=== PATIENT | male | born 1955 | race Caucasian/White ===

== ENCOUNTER 2021-04-24 14:04 | Emergency (ER) | payer BC, SELFPAY ==
--- NOTE | ~2021-04-24 | XR_ITS ---
EXAMINATION: XR CHEST CLINICAL INFORMATION: Shortness of breath COMPARISON: None TECHNIQUE: Frontal view of the chest was obtained. FINDINGS: The cardiac and mediastinal contours are normal. The lungs are clear. There is no pleural effusion or pneumothorax. There are degenerative changes of the spine. XR/XR chest 1V IMPRESSION: No evidence for acute disease in the chest.
[2021-04-24 14:19] VITALS: BP 206/96; BP 220/100; PULSE 70; PULSE 76; RESP 16; TEMP 36.6; O2SAT 97; O2SAT 98; BMI 30.5
[2021-04-24 14:21] LABS: Glucose, Whole Blood 346 mg/dL (60-115)
--- NOTE | 2021-04-24 14:27 | ECG_ITS ---
Test Reason : NAUSEA Blood Pressure : / mmHG Vent. Rate : 067 BPM Atrial Rate : 067 BPM P-R Int : 194 ms QRS Dur : 084 ms QT Int : 414 ms P-R-T Axes : 062 026 037 degrees QTc Int : 437 ms Sinus rhythm with marked sinus arrhythmia Septal infarct , age undetermined Abnormal ECG When compared with ECG of 14-FEB-2013 16:31, No significant change was found Referred By: Kulwinder Lewis Electronically Signed By:STEFFI WEISS
--- NOTE | 2021-04-24 14:29 | ED_ITS ---
HPI - General Adult General Chief complaint: Nausea/Vomiting/Diarrhea Stated complaint: N&V SINCE THIS AM,HIGH BP 200/112 PER EMS Time Seen by Provider: 04/24/21 14:21 Source: patient History of Present Illness HPI narrative: Patient with 2 days worth of nausea, chills, cough, sputum. Feeling generally unwell and very fatigued and weak. No chest pain. No history of similar issues. He had the [employer] COVID vaccine in August of 2020. Nonsmoker No history of asthma or COPD. He has a history of insulin-dependent diabetes times more than 20 years. He states he does not typically have hypertension. His last blood pressure 2 weeks ago at his PCP office he thinks was 123/70. Related Data Previous Rx's Medication Instructions Recorded ondansetron HCl 4 mg tablet 4 mg PO Q6H PRN #10 tab 04/24/21 (Zofran) Allergies Allergy/AdvReac Type Severity Reaction Status Date / Time liraglutide [From VICTOZA] Allergy Unknown UNKNOWN Unverified 01/20/20 17:02 Review of Systems Constitutional: Constitutional: Reports anorexia, Reports chills and Reports fever(s) ENT: Comments: sore throat Cardiovascular: Comments: No chest pain Respiratory: Comments: Cough sputum and dyspnea Gastrointestinal: Comments: Nausea and vomiting without abdominal pain. Denies diarrhea. Normal bowel movement today Integumentary/Breasts: Comments: No rash Endocrine: Comments: States blood sugars have been ?all over the place? FOR[facility]LY [facility], [facility] Past Medical History Medical History (Updated 04/24/21 @ 17:48 by Kulwinder Lewis MD) Gastroparesis Insulin dependent type 1 diabetes mellitus Social History Social History Alcohol intake: never Patient Tobacco Use Status: Never used Tobacco Use of substances other than those prescribed or required for medical reasons: No Advance Directives: No Advance Directives Information Provided: No Physical Exam Vital Signs: Vital Signs: Last Vital Signs Temp 98.0 F 04/24/21 18:42 Pulse 107 H 04/24/21 18:42 Resp 17 04/24/21 18:42 BP 196/177 H 04/24/21 18:42 Pulse Ox 98 04/24/21 18:42 BMI result Body Mass Index 30.5 Const: Other: Awake and alert. Appears uncomfortable. Holding an emesis bag HENMT: Other: Throat with mild erythema without exudate and no swelling Resp: Other: Diminished without wheezes rales rhonchi Cardio: Other: Regular rate and rhythm without murmurs rubs or gallops GI: Other: Soft nontender nondistended. Normal bowel sounds Skin: Other: Warm pink and dry without rash Neuro: Other: Nonfocal Extrem: Other: No calf tenderness Course Course Course Narrative: Nausea vomiting Gastroenteritis COVID-19 infection Influenza Dehydration URI Hyperglycemia Diabetic ketoacidosis IV fluids IV insulin 5:46 p.m.. Lab work shows overall normal values. A stone is negative. Blood sugars in the 300s. Patient is feeling much better and tolerating p.o. liquids. His blood sugar was still significant elevated however, so we will give a little more fluid and IV insulin. Assuming his blood glucose level decreases, he will be safe for discharge home 6:46 p.m.. Repeat blood sugars 298. Stable for discharge home Medical Decision Making Lab Data Result diagrams: 04/24/21 16:11 04/24/21 16:11 Labs: Lab Results 04/24/21 04/24/21 04/24/21 Range/Units 14:18 15:20 16:11 WBC 13.7 H (4.8-10.8) X10*3/uL RBC 6.06 H (4.60-5.80) X10*6/uL Hgb 17.6 (14.0-18.0) g/dl Hct 51.9 (42.0-52.0) % MCV 85.6 (80.0-98.0) fL MCH 29.0 (27.0-33.0) pg MCHC 33.9 (31.0-36.0) g/dl RDW 12.9 (11.0-16.0) % Plt Count 218 (160-400) X10*3/uL MPV 9.7 (9.4-12.4) fL Immature Gran % (Auto) 0.4 (0.0-0.4) % Neut % (Auto) 90.7 H (45-73) % Lymph % (Auto) 5.4 L (20-40) % [place] % (Auto) 3.1 (2-11) % Eos % (Auto) 0.1 (0-4) % Baso % (Auto) 0.3 (0-2) % Lymph # (Auto) 0.7 L (1.2-4.9) X10*3/uL [place] # (Auto) 0.4 (0.1-1.2) X10*3/uL Eos # (Auto) 0.0 (0.0-0.4) X10*3/uL Baso # (Auto) 0.0 (0.0-0.2) X10*3/uL Abs Immat Gran (auto) 0.05 H (0.00-0.03) X10*3/uL Absolute Neuts (auto) 12.5 H (2.0-8.3) x10*3/uL Absolute Nucleated RBC 0.000 (0.0-0.012) X10*3/uL Nucleated RBC % (auto) 0.0 (0.0-0.2) /100WBC Smear Tech's Comments VERIFIED D-Dimer High Sensitivty NG/ML Sodium (135-145) mmol/L Potassium (3.3-5.1) mmol/L Chloride (96-108) mmol/L Carbon Dioxide (22-29) mmol/L Anion Gap (12-20) BUN (9-16) mg/dL Creatinine (0.5-1.4) mg/dL Estim Creat Clear Calc Estimated GFR POC Glucose 346 H (60-115) mg/dL Random Glucose (60-115) mg/dL Lactic Acid (0.5-2.0) mmol/L Calcium (8.4-10.2) mg/dL Total Bilirubin (0.0-1.0) mg/dL AST (5-37) U/L ALT (0-40) U/L Alkaline Phosphatase (39-117) U/L Troponin I High Sens (<3.5-35.0) ng/L B-Natriuretic Peptide (<100) pg/mL Total Protein (6.5-8.0) g/dL Albumin (3.5-5.0) g/dL Lipase (8-78) U/L Acetone, Qual (Negative) Influenza Type A (PCR) NEGATIVE (Negative) Influenza Type B (PCR) NEGATIVE (Negative) RSV RNA Qual (PCR) NEGATIVE (Negative) SARS-CoV-2 RNA (RT-PCR) NEGATIVE (Negative) 12/21/21 12/21/21 12/21/21 Range/Units 16:11 16:11 16:11 WBC (4.8-10.8) X10*3/uL RBC (4.60-5.80) X10*6/uL Hgb (14.0-18.0) g/dl Hct (42.0-52.0) % MCV (80.0-98.0) fL MCH (27.0-33.0) pg MCHC (31.0-36.0) g/dl RDW (11.0-16.0) % Plt Count (160-400) X10*3/uL MPV (9.4-12.4) fL Immature Gran % (Auto) (0.0-0.4) % Neut % (Auto) (45-73) % Lymph % (Auto) (20-40) % [place] % (Auto) (2-11) % Eos % (Auto) (0-4) % Baso % (Auto) (0-2) % Lymph # (Auto) (1.2-4.9) X10*3/uL [place] # (Auto) (0.1-1.2) X10*3/uL Eos # (Auto) (0.0-0.4) X10*3/uL Baso # (Auto) (0.0-0.2) X10*3/uL Abs Immat Gran (auto) (0.00-0.03) X10*3/uL Absolute Neuts (auto) (2.0-8.3) x10*3/uL Absolute Nucleated RBC (0.0-0.012) X10*3/uL Nucleated RBC % (auto) (0.0-0.2) /100WBC Smear Tech's Comments D-Dimer High Sensitivty 174 NG/ML Sodium 142 (135-145) mmol/L Potassium 4.3 (3.3-5.1) mmol/L Chloride 105 (96-108) mmol/L Carbon Dioxide 19 L (22-29) mmol/L Anion Gap 22 H (12-20) BUN 17 H (9-16) mg/dL Creatinine 0.94 (0.5-1.4) mg/dL Estim Creat Clear Calc 83.1 Estimated GFR > 60 POC Glucose (60-115) mg/dL Random Glucose 357 H* (60-115) mg/dL Lactic Acid 2.4 H* (0.5-2.0) mmol/L Calcium 10.0 (8.4-10.2) mg/dL Total Bilirubin 1.2 H (0.0-1.0) mg/dL AST 22 (5-37) U/L ALT 41 H (0-40) U/L Alkaline Phosphatase 109 (39-117) U/L Troponin I High Sens (<3.5-35.0) ng/L B-Natriuretic Peptide (<100) pg/mL Total Protein 8.5 H (6.5-8.0) g/dL Albumin 4.9 (3.5-5.0) g/dL Lipase 45 (8-78) U/L Acetone, Qual (Negative) Influenza Type A (PCR) (Negative) Influenza Type B (PCR) (Negative) RSV RNA Qual (PCR) (Negative) SARS-CoV-2 RNA (RT-PCR) (Negative) 04/24/21 04/24/21 Range/Units 16:11 16:11 WBC (4.8-10.8) X10*3/uL RBC (4.60-5.80) X10*6/uL Hgb (14.0-18.0) g/dl Hct (42.0-52.0) % MCV (80.0-98.0) fL MCH (27.0-33.0) pg MCHC (31.0-36.0) g/dl RDW (11.0-16.0) % Plt Count (160-400) X10*3/uL MPV (9.4-12.4) fL Immature Gran % (Auto) (0.0-0.4) % Neut % (Auto) (45-73) % Lymph % (Auto) (20-40) % [place] % (Auto) (2-11) % Eos % (Auto) (0-4) % Baso % (Auto) (0-2) % Lymph # (Auto) (1.2-4.9) X10*3/uL [place] # (Auto) (0.1-1.2) X10*3/uL Eos # (Auto) (0.0-0.4) X10*3/uL Baso # (Auto) (0.0-0.2) X10*3/uL Abs Immat Gran (auto) (0.00-0.03) X10*3/uL Absolute Neuts (auto) (2.0-8.3) x10*3/uL Absolute Nucleated RBC (0.0-0.012) X10*3/uL Nucleated RBC % (auto) (0.0-0.2) /100WBC Smear Tech's Comments D-Dimer High Sensitivty NG/ML Sodium (135-145) mmol/L Potassium (3.3-5.1) mmol/L Chloride (96-108) mmol/L Carbon Dioxide (22-29) mmol/L Anion Gap (12-20) BUN (9-16) mg/dL Creatinine (0.5-1.4) mg/dL Estim Creat Clear Calc Estimated GFR POC Glucose (60-115) mg/dL Random Glucose (60-115) mg/dL Lactic Acid (0.5-2.0) mmol/L Calcium (8.4-10.2) mg/dL Total Bilirubin (0.0-1.0) mg/dL AST (5-37) U/L ALT (0-40) U/L Alkaline Phosphatase (39-117) U/L Troponin I High Sens 4.5 (<3.5-35.0) ng/L B-Natriuretic Peptide 14 (<100) pg/mL Total Protein (6.5-8.0) g/dL Albumin (3.5-5.0) g/dL Lipase (8-78) U/L Acetone, Qual Negative (Negative) Influenza Type A (PCR) (Negative) Influenza Type B (PCR) (Negative) RSV RNA Qual (PCR) (Negative) SARS-CoV-2 RNA (RT-PCR) (Negative) Discharge Plan Discharge Clinical Impression: Gastroenteritis, Dehydration, Acute hyperglycemia Patient Disposition: Home, Self-Care Instructions: Dehydration (ED), Gastroenteritis (ED), Diabetic Hyperglycemia (ED) Prescriptions: New ondansetron HCl [Zofran] 4 mg tablet 4 mg PO Q6H PRN (Reason: nausea and vomiting) Qty: 10 RF: 0
[2021-04-24] MEDS: ondansetron HCL 4 MG/2 ML VIAL IVPUSH (14:48)
[2021-04-24] MEDS: 0.9 % Sodium Chloride 1,000 ML 999 ML IV ×2 (14:48→17:20)
[2021-04-24 16:12] LABS: Influenza A PCR NEGATIVE (Negative); Influenza B PCR NEGATIVE (Negative); Resp Syncy Virus RNA Qual PCR NEGATIVE (Negative); SARS COV2 PCR INHOUSE NEGATIVE (Negative)
[2021-04-24 16:19] LABS: Basophils Percent Auto 0.3 % (0-2); Eosinophils Percent Auto 0.1 % (0-4); Hematocrit 51.9 % (42.0-52.0); Hemoglobin 17.6 g/dl (14.0-18.0); Imm Gran Abs Auto 0.05 X10*3/uL (0.00-0.03); Imm Gran Pct Auto 0.4 % (0.0-0.4); Lymphocytes Absolute Auto 0.7 X10*3/uL (1.2-4.9); Lymphocytes Percent Auto 5.4 % (20-40); MANUAL DIFF FLAG SCAN; Mean Corpuscular HGB Conc 33.9 g/dl (31.0-36.0); Mean Corpuscular Volume 85.6 fL (80.0-98.0); Mean Platelet Volume 9.7 fL (9.4-12.4); Monocytes Absolute Auto 0.4 X10*3/uL (0.1-1.2); Monocytes Percent Auto 3.1 % (2-11); Neutrophils Absolute Auto 12.5 x10*3/uL (2.0-8.3); Neutrophils Percent Auto 90.7 % (45-73); Platelet Count 218 X10*3/uL (160-400); Red Blood Count 6.06 X10*6/uL (4.60-5.80); Red Cell Distribution Width 12.9 % (11.0-16.0); SCAN SMEAR FLAG 1; White Blood Count 13.7 X10*3/uL (4.8-10.8)
[2021-04-24 16:27] LABS: D Dimer High Sensitivity 174 NG/ML
[2021-04-24 16:28] LABS: Acetone, serum QL Negative (Negative)
[2021-04-24 16:35] LABS: Lactic Acid 2.4 mmol/L (0.5-2.0)
[2021-04-24 16:39] LABS: B Type Natriuretic Peptide 14 pg/mL (<100); SLIDE REVIEW VERIFIED; Troponin-I High Sensitivity 4.5 ng/L (<3.5-35.0)
[2021-04-24 16:40] LABS: Alanine Aminotransferase 41 U/L (0-40); Albumin Level 4.9 g/dL (3.5-5.0); Alkaline Phosphatase 109 U/L (39-117); Anion Gap 22 (12-20); Aspartate Amino Transferase 22 U/L (5-37); Bilirubin Total 1.2 mg/dL (0.0-1.0); Blood Urea Nitrogen 17 mg/dL (9-16); Carbon Dioxide 19 mmol/L (22-29); Chloride 105 mmol/L (96-108); Creatinine Clr Calc Pharmacy 83.1; Estimated Glomerular Filt Rate > 60; Glucose Random 357 mg/dL (60-115); Lipase 45 U/L (8-78); Potassium 4.3 mmol/L (3.3-5.1); Sodium 142 mmol/L (135-145); Total Protein 8.5 g/dL (6.5-8.0)
[2021-04-24 16:53] VITALS: BP 212/96; PULSE 96; RESP 18; TEMP 36.5; O2SAT 96
[2021-04-24] MEDS: Insulin Regular, Human 100 UNIT/ML 3 ML VIAL IVPUSH (17:18)
[2021-04-24 18:16] LABS: Reflex Lactate? Lactic Acid Added
[2021-04-24 18:42] VITALS: BP 196/177; PULSE 107; RESP 17; TEMP 36.7; O2SAT 98
[2021-04-24 18:49] LABS: Glucose, Whole Blood 298 mg/dL (60-115)
[2021-04-24 19:20] LABS: Glucose, Whole Blood 329 mg/dL (60-115)
== END 2021-04-24 18:58 | disposition home or self-care (01) ==
PROVIDERS: Emergency Provider Emergency Medicine; PCP Family Medicine
DX: K52.9 Noninfective gastroenteritis and colitis, unspecified (principal); E86.0 Dehydration; E10.65 Type 1 diabetes mellitus with hyperglycemia; Z20.822 Contact with and (suspected) exposure to COVID-19
CPT/HCPCS: 0241U; 36415; 71045; 80053; 82009; 82947; 83605; 83690; 83880; 84484; 85025; 85379; 87040; 93005; 96361; 96374; 96375; 99284; J2405

== ENCOUNTER 2021-07-04 18:40 | Emergency (ER) | payer MEDICARE, BC, SELFPAY ==
--- NOTE | ~2021-07-04 | CT_ITS ---
EXAMINATION: CT ABDOMEN AND PELVIS WITH CONTRAST CLINICAL INFORMATION: Lower abdominal pain, question etiology COMPARISON: 04/04/2009 TECHNIQUE: Multidetector volumetric images were obtained from the superior aspect of the liver through the pubic symphysis following administration 85 mL of Omnipaque 350 intravenous contrast. Sagittal and coronal reformatted images were obtained on the technologist's workstation. Oral contrast: No This CT examination was performed using dose optimization techniques as appropriate, variously including the following: *Automated exposure control *Adjustment of mA and/or kV according to patient size (this includes techniques or standardized protocols for targeted exams where dose is matched to indication/reason for exam; i.e. extremities or head) *Use of iterative reconstruction technique DLP: 634 mGy-cm FINDINGS: LUNG BASES: The visualized lung bases are unremarkable. LIVER, GALLBLADDER, AND BILIARY TREE: There is hypoattenuation of the liver suggesting steatosis. No intrahepatic biliary ductal dilatation. Cholelithiasis is noted, without appreciable gallbladder wall thickening or pericholecystic inflammation. PANCREAS: Unremarkable. SPLEEN: Unremarkable. ADRENAL GLANDS: Unremarkable. KIDNEYS AND URETERS: Bilateral nephrograms are symmetric. No hydronephrosis or obstructing calculus identified. An approximately 2.2 cm cyst is noted off the anterior right kidney; no follow-up recommended. BLADDER: Unremarkable. GASTROINTESTINAL TRACT: No evidence of bowel obstruction or significant wall thickening. The appendix is unremarkable. No free fluid or free air is seen. ABDOMINAL WALL: No significant hernia is appreciated. LYMPH NODES: Normal. VASCULAR: There is atherosclerotic calcification along the aorta. PELVIC VISCERA: Unremarkable. OSSEOUS STRUCTURES: Degenerative changes are noted in the spine. CT/CT abdomen pelvis w con IMPRESSION: No acute findings identified in the abdomen/pelvis. Cholelithiasis. Fleischner guidelines were followed.
--- NOTE | ~2021-07-04 | XR_ITS ---
EXAMINATION: XR CHEST CLINICAL INFORMATION: Shortness of breath COMPARISON: 04/24/2021 TECHNIQUE: Frontal view of the chest was obtained. FINDINGS: Lung volumes are symmetric. No focal consolidation is seen. No evidence of pneumothorax, pleural effusion, or pulmonary edema. The cardiomediastinal contour is unremarkable. No acute osseous findings are seen. XR/XR chest 1V IMPRESSION: No acute cardiopulmonary findings.
[2021-07-04 18:47] VITALS: BP 184/105; PULSE 115; RESP 18; TEMP 36.4; O2SAT 99; BMI 30.7
--- NOTE | 2021-07-04 19:09 | PC.NURSE ---
unable to get patient labs as patient a difficult stick ,denny doan is aware .
[2021-07-04 19:31] LABS: COVID-19 Test Negative (Negative)
[2021-07-04 21:25] VITALS: BP 189/101; PULSE 112; RESP 20; O2SAT 97
[2021-07-04 21:29] LABS: Glucose, Whole Blood 298 mg/dL (60-115)
[2021-07-04 21:30] LABS: Basophils Percent Auto 0.1 % (0-2); Hematocrit 52.7 % (42.0-52.0); Hemoglobin 18.1 g/dl (14.0-18.0); Imm Gran Abs Auto 0.05 X10*3/uL (0.00-0.03); Imm Gran Pct Auto 0.4 % (0.0-0.4); Lymphocytes Absolute Auto 0.8 X10*3/uL (1.2-4.9); Lymphocytes Percent Auto 6.1 % (20-40); MANUAL DIFF FLAG SCAN; Mean Corpuscular HGB Conc 34.3 g/dl (31.0-36.0); Mean Corpuscular Hemoglobin 28.6 pg (27.0-33.0); Mean Corpuscular Volume 83.3 fL (80.0-98.0); Mean Platelet Volume 9.3 fL (9.4-12.4); Monocytes Absolute Auto 0.5 X10*3/uL (0.1-1.2); Monocytes Percent Auto 3.3 % (2-11); Neutrophils Absolute Auto 12.4 x10*3/uL (2.0-8.3); Neutrophils Percent Auto 90.1 % (45-73); Platelet Count 272 X10*3/uL (160-400); Red Blood Count 6.33 X10*6/uL (4.60-5.80); Red Cell Distribution Width 12.8 % (11.0-16.0); SCAN SMEAR FLAG 1; White Blood Count 13.8 X10*3/uL (4.8-10.8)
[2021-07-04 21:51] LABS: SLIDE REVIEW VERIFIED
[2021-07-04 21:58] LABS: Alanine Aminotransferase 25 U/L (0-40); Alkaline Phosphatase 123 U/L (39-117); Anion Gap 23 (12-20); Aspartate Amino Transferase 24 U/L (5-37); Bilirubin Direct 0.3 mg/dL (0.0-0.5); Bilirubin Total 1.1 mg/dL (0.0-1.0); Blood Urea Nitrogen 15 mg/dL (9-16); Calcium 10.4 mg/dL (8.4-10.2); Carbon Dioxide 23 mmol/L (22-29); Chloride 98 mmol/L (96-108); Creatinine Clr Calc Pharmacy 70.8; Estimated Glomerular Filt Rate > 60; Glucose Random 401 mg/dL (60-115); Lipase 12 U/L (8-78); Potassium 5.4 mmol/L (3.3-5.1); Sodium 139 mmol/L (135-145); Total Protein 8.6 g/dL (6.5-8.0)
--- NOTE | 2021-07-04 22:15 | ED.GENADULT ---
HPI - General Adult General Chief complaint: General Medical Stated complaint: wheezing, 96.4 temp, diabetic Time Seen by Provider: 07/04/21 22:15 Source: patient and family Mode of arrival: ambulatory Limitations: no limitations History of Present Illness HPI narrative: Patient diabetic with history of gastroparesis been having cold symptoms for last 2-3 days was okay in the morning today went to work noticed diffuse abdominal pain with nausea vomited 1 time profusely sweating, poor oral intake all day with weakness and lethargy with confusion, patient was during eating every 15-20 minute blood sugar was elevated to 400 range POC was 298 on arrival no fever no chills no cough Related Data Home Medications Medication Instructions Recorded Confirmed buspirone 5 mg tablet 7.5 mg PO BID 07/04/21 07/04/21 clonazepam 0.5 mg tablet 0.5 mg PO BID PRN 07/04/21 07/04/21 dextroamphetamine-amphetamine ER 40 mg PO DAILY 07/04/21 07/04/21 20 mg 24hr capsule,extend release dulaglutide 1.5 mg/0.5 mL 0.5 ml SUBCUT QWEEK 07/04/21 07/04/21 subcutaneous pen injector (Trulicity) gabapentin 300 mg capsule 900 mg PO BID 07/04/21 insulin lispro 100 unit/mL SUBCUT 07/04/21 subcutaneous solution (Humalog U-100 Insulin) metformin 500 mg tablet 2,000 mg PO BID 07/04/21 07/04/21 metoclopramide HCl 10 mg tablet 10 mg PO BID 07/04/21 07/04/21 ondansetron HCl 4 mg tablet 4 mg PO DIRECTED PRN 07/04/21 07/04/21 Allergies Allergy/AdvReac Type Severity Reaction Status Date / Time liraglutide [From VICTOZA] Allergy Unknown UNKNOWN Verified 07/04/21 18:47 Review of Systems Review of Systems: Yes all other systems are reviewed and are negative PMFSH Past Medical History Medical History Gastroparesis Insulin dependent type 1 diabetes mellitus Social History Social History Alcohol intake: never Patient Tobacco Use Status: Never used Tobacco Advance Directives: No Advance Directives Information Provided: Yes Physical Exam ED Vital Signs: Vital Signs - 24 hr 07/04/21 18:47 07/04/21 21:25 07/04/21 23:44 Temperature 97.5 F Pulse Rate 115 H 112 H 104 H Respiratory Rate 18 20 16 Blood Pressure 184/105 H 189/101 H 122/66 Pulse Oximetry 99 97 97 07/05/21 01:07 07/05/21 01:18 07/05/21 03:12 Temperature 97.7 F Pulse Rate 98 90 93 Respiratory Rate 18 16 16 Blood Pressure 121/65 131/61 156/70 H Pulse Oximetry 98 BMI result Body Mass Index 30.7 Appearance: Alert. Oriented X3. No acute distress. Eyes: No pallor or icterus ENT: Pharynx normal. Oral Mucosa dry Neck: Normal inspection. Neck supple. CVS: Normal heart rate and rhythm. Pulses normal. Respiratory: No respiratory distress. Equal air entry bilateral, no wheezing/rales/rhonchi Abdomen: Soft , diffuse tenderness no rebound tenderness or guarding Bowel sounds are present, no mass palpable, no CVA tenderness Skin: Skin warm and dry. Normal skin color. Normal skin turgor. Extremities: No lower extremity edema. No calf tenderness Neuro: Oriented X 3. No motor deficit. No sensory deficit. Medical Decision Making MDM Narrative Medical decision making narrative: Patient diabetic gastroparesis came with acute episode of gastroparesis as in the past workup showed lactic acidosis with normal procalcitonin lactic acidosis is type B as patient is on metformin no signs of infection patient symptoms improved after IV hydration able to take p.o. fluids feeling much better now will discharge patient home Lab Data Lab results reviewed: Yes I reviewed the patient's lab results. Result diagrams: 07/04/21 21:24 07/04/21 21:24 Labs: Lab Results 07/04/21 07/04/21 07/04/21 Range/Units 18:55 19:06 21:24 WBC 13.8 H (4.8-10.8) X10*3/uL RBC 6.33 H (4.60-5.80) X10*6/uL Hgb 18.1 H (14.0-18.0) g/dl Hct 52.7 H (42.0-52.0) % MCV 83.3 (80.0-98.0) fL MCH 28.6 (27.0-33.0) pg MCHC 34.3 (31.0-36.0) g/dl RDW 12.8 (11.0-16.0) % Plt Count 272 (160-400) X10*3/uL MPV 9.3 L (9.4-12.4) fL Immature Gran % (Auto) 0.4 (0.0-0.4) % Neut % (Auto) 90.1 H (45-73) % Lymph % (Auto) 6.1 L (20-40) % [place] % (Auto) 3.3 (2-11) % Eos % (Auto) 0.0 (0-4) % Baso % (Auto) 0.1 (0-2) % Lymph # (Auto) 0.8 L (1.2-4.9) X10*3/uL [place] # (Auto) 0.5 (0.1-1.2) X10*3/uL Eos # (Auto) 0.0 (0.0-0.4) X10*3/uL Baso # (Auto) 0.0 (0.0-0.2) X10*3/uL Abs Immat Gran (auto) 0.05 H (0.00-0.03) X10*3/uL Absolute Neuts (auto) 12.4 H (2.0-8.3) x10*3/uL Absolute Nucleated RBC 0.000 (0.0-0.012) X10*3/uL Nucleated RBC % (auto) 0.0 (0.0-0.2) /100WBC Smear Tech's Comments VERIFIED Sodium (135-145) mmol/L Potassium (3.3-5.1) mmol/L Chloride (96-108) mmol/L Carbon Dioxide (22-29) mmol/L Anion Gap (12-20) BUN (9-16) mg/dL Creatinine (0.5-1.4) mg/dL Estim Creat Clear Calc Estimated GFR POC Glucose 298 H (60-115) mg/dL Random Glucose (60-115) mg/dL Lactic Acid (0.5-2.0) mmol/L Lactic Acid F/U @ 2Hr (0.5-2.0) mmol/L Calcium (8.4-10.2) mg/dL Total Bilirubin (0.0-1.0) mg/dL Direct Bilirubin (0.0-0.5) mg/dL AST (5-37) U/L ALT (0-40) U/L Alkaline Phosphatase (39-117) U/L C-Reactive Protein (< or = 0.50) mg/dL Total Protein (6.5-8.0) g/dL Albumin (3.5-5.0) g/dL Lipase (8-78) U/L Procalcitonin ng/mL TSH (0.32-4.0) uIU/mL Urine Color Urine Appearance Urine pH (5.0-8.0) Ur Specific [place] (1.005-1.025) Urine Protein (NEG-TRACE) MG/DL Urine Glucose (UA) (NEG) MG/DL Urine Ketones (NEG) MG/DL Urine Blood (NEG) Urine Nitrite (NEG) Ur Leukocyte Esterase (NEG) Urine RBC (0) /HPF Urine WBC (0-4) /HPF Ur Squamous Epith Cells /LPF Urine Bacteria /LPF Acetone, Qual (Negative) COVID-19 (MARQUISE) Negative (Negative) COVID-19 Clin Com See Note 07/04/21 07/04/21 07/04/21 Range/Units 21:24 21:28 22:42 WBC (4.8-10.8) X10*3/uL RBC (4.60-5.80) X10*6/uL Hgb (14.0-18.0) g/dl Hct (42.0-52.0) % MCV (80.0-98.0) fL MCH (27.0-33.0) pg MCHC (31.0-36.0) g/dl RDW (11.0-16.0) % Plt Count (160-400) X10*3/uL MPV (9.4-12.4) fL Immature Gran % (Auto) (0.0-0.4) % Neut % (Auto) (45-73) % Lymph % (Auto) (20-40) % [place] % (Auto) (2-11) % Eos % (Auto) (0-4) % Baso % (Auto) (0-2) % Lymph # (Auto) (1.2-4.9) X10*3/uL [place] # (Auto) (0.1-1.2) X10*3/uL Eos # (Auto) (0.0-0.4) X10*3/uL Baso # (Auto) (0.0-0.2) X10*3/uL Abs Immat Gran (auto) (0.00-0.03) X10*3/uL Absolute Neuts (auto) (2.0-8.3) x10*3/uL Absolute Nucleated RBC (0.0-0.012) X10*3/uL Nucleated RBC % (auto) (0.0-0.2) /100WBC Smear Tech's Comments Sodium 139 (135-145) mmol/L Potassium 5.4 H D (3.3-5.1) mmol/L Chloride 98 (96-108) mmol/L Carbon Dioxide 23 (22-29) mmol/L Anion Gap 23 H (12-20) BUN 15 (9-16) mg/dL Creatinine 1.07 (0.5-1.4) mg/dL Estim Creat Clear Calc 70.8 Estimated GFR > 60 POC Glucose (60-115) mg/dL Random Glucose 401 H* (60-115) mg/dL Lactic Acid 3.4 H* (0.5-2.0) mmol/L Lactic Acid F/U @ 2Hr (0.5-2.0) mmol/L Calcium 10.4 H (8.4-10.2) mg/dL Total Bilirubin 1.1 H (0.0-1.0) mg/dL Direct Bilirubin 0.3 (0.0-0.5) mg/dL AST 24 (5-37) U/L ALT 25 (0-40) U/L Alkaline Phosphatase 123 H (39-117) U/L C-Reactive Protein 1.49 H (< or = 0.50) mg/dL Total Protein 8.6 H (6.5-8.0) g/dL Albumin 5.0 (3.5-5.0) g/dL Lipase 12 (8-78) U/L Procalcitonin 0.03 ng/mL TSH 0.73 (0.32-4.0) uIU/mL Urine Color Urine Appearance Urine pH (5.0-8.0) Ur Specific [place] (1.005-1.025) Urine Protein (NEG-TRACE) MG/DL Urine Glucose (UA) (NEG) MG/DL Urine Ketones (NEG) MG/DL Urine Blood (NEG) Urine Nitrite (NEG) Ur Leukocyte Esterase (NEG) Urine RBC (0) /HPF Urine WBC (0-4) /HPF Ur Squamous Epith Cells /LPF Urine Bacteria /LPF Acetone, Qual Negative (Negative) COVID-19 (MARQUISE) (Negative) COVID-19 Clin Com 07/04/21 07/05/21 07/05/21 Range/Units 22:50 00:02 01:12 WBC (4.8-10.8) X10*3/uL RBC (4.60-5.80) X10*6/uL Hgb (14.0-18.0) g/dl Hct (42.0-52.0) % MCV (80.0-98.0) fL MCH (27.0-33.0) pg MCHC (31.0-36.0) g/dl RDW (11.0-16.0) % Plt Count (160-400) X10*3/uL MPV (9.4-12.4) fL Immature Gran % (Auto) (0.0-0.4) % Neut % (Auto) (45-73) % Lymph % (Auto) (20-40) % [place] % (Auto) (2-11) % Eos % (Auto) (0-4) % Baso % (Auto) (0-2) % Lymph # (Auto) (1.2-4.9) X10*3/uL [place] # (Auto) (0.1-1.2) X10*3/uL Eos # (Auto) (0.0-0.4) X10*3/uL Baso # (Auto) (0.0-0.2) X10*3/uL Abs Immat Gran (auto) (0.00-0.03) X10*3/uL Absolute Neuts (auto) (2.0-8.3) x10*3/uL Absolute Nucleated RBC (0.0-0.012) X10*3/uL Nucleated RBC % (auto) (0.0-0.2) /100WBC Smear Tech's Comments Sodium (135-145) mmol/L Potassium (3.3-5.1) mmol/L Chloride (96-108) mmol/L Carbon Dioxide (22-29) mmol/L Anion Gap (12-20) BUN (9-16) mg/dL Creatinine (0.5-1.4) mg/dL Estim Creat Clear Calc Estimated GFR POC Glucose 397 H* (60-115) mg/dL Random Glucose (60-115) mg/dL Lactic Acid (0.5-2.0) mmol/L Lactic Acid F/U @ 2Hr 4.2 H* (0.5-2.0) mmol/L Calcium (8.4-10.2) mg/dL Total Bilirubin (0.0-1.0) mg/dL Direct Bilirubin (0.0-0.5) mg/dL AST (5-37) U/L ALT (0-40) U/L Alkaline Phosphatase (39-117) U/L C-Reactive Protein (< or = 0.50) mg/dL Total Protein (6.5-8.0) g/dL Albumin (3.5-5.0) g/dL Lipase (8-78) U/L Procalcitonin ng/mL TSH (0.32-4.0) uIU/mL Urine Color YELLOW Urine Appearance CLEAR Urine pH 5.5 (5.0-8.0) Ur Specific [place] 1.025 (1.005-1.025) Urine Protein 2+ H (NEG-TRACE) MG/DL Urine Glucose (UA) >=1000 H (NEG) MG/DL Urine Ketones 40 (NEG) MG/DL Urine Blood 1+ H (NEG) Urine Nitrite NEG (NEG) Ur Leukocyte Esterase NEG (NEG) Urine RBC 0-2 (0) /HPF Urine WBC 0-2 (0-4) /HPF Ur Squamous Epith Cells TRACE /LPF Urine Bacteria NONE /LPF Acetone, Qual (Negative) COVID-19 (MARQUISE) (Negative) COVID-19 Clin Com 07/05/21 Range/Units 01:36 WBC (4.8-10.8) X10*3/uL RBC (4.60-5.80) X10*6/uL Hgb (14.0-18.0) g/dl Hct (42.0-52.0) % MCV (80.0-98.0) fL MCH (27.0-33.0) pg MCHC (31.0-36.0) g/dl RDW (11.0-16.0) % Plt Count (160-400) X10*3/uL MPV (9.4-12.4) fL Immature Gran % (Auto) (0.0-0.4) % Neut % (Auto) (45-73) % Lymph % (Auto) (20-40) % [place] % (Auto) (2-11) % Eos % (Auto) (0-4) % Baso % (Auto) (0-2) % Lymph # (Auto) (1.2-4.9) X10*3/uL [place] # (Auto) (0.1-1.2) X10*3/uL Eos # (Auto) (0.0-0.4) X10*3/uL Baso # (Auto) (0.0-0.2) X10*3/uL Abs Immat Gran (auto) (0.00-0.03) X10*3/uL Absolute Neuts (auto) (2.0-8.3) x10*3/uL Absolute Nucleated RBC (0.0-0.012) X10*3/uL Nucleated RBC % (auto) (0.0-0.2) /100WBC Smear Tech's Comments Sodium (135-145) mmol/L Potassium (3.3-5.1) mmol/L Chloride (96-108) mmol/L Carbon Dioxide (22-29) mmol/L Anion Gap (12-20) BUN (9-16) mg/dL Creatinine (0.5-1.4) mg/dL Estim Creat Clear Calc Estimated GFR POC Glucose 287 H (60-115) mg/dL Random Glucose (60-115) mg/dL Lactic Acid (0.5-2.0) mmol/L Lactic Acid F/U @ 2Hr (0.5-2.0) mmol/L Calcium (8.4-10.2) mg/dL Total Bilirubin (0.0-1.0) mg/dL Direct Bilirubin (0.0-0.5) mg/dL AST (5-37) U/L ALT (0-40) U/L Alkaline Phosphatase (39-117) U/L C-Reactive Protein (< or = 0.50) mg/dL Total Protein (6.5-8.0) g/dL Albumin (3.5-5.0) g/dL Lipase (8-78) U/L Procalcitonin ng/mL TSH (0.32-4.0) uIU/mL Urine Color Urine Appearance Urine pH (5.0-8.0) Ur Specific [place] (1.005-1.025) Urine Protein (NEG-TRACE) MG/DL Urine Glucose (UA) (NEG) MG/DL Urine Ketones (NEG) MG/DL Urine Blood (NEG) Urine Nitrite (NEG) Ur Leukocyte Esterase (NEG) Urine RBC (0) /HPF Urine WBC (0-4) /HPF Ur Squamous Epith Cells /LPF Urine Bacteria /LPF Acetone, Qual (Negative) COVID-19 ([facility]) (Negative) COVID-19 Clin Com Discharge Plan Discharge Clinical Impression: Diabetic gastroparesis Patient Disposition: Home, Self-Care Instructions: Gastroparesis (ED) Additional Instructions: Take medication as prescribed Drink plenty of fluids Report to the ER if increased vomiting/not feeling better Prescriptions: No Action buspirone 5 mg tablet 7.5 mg PO BID 0RF metformin 500 mg tablet 2,000 mg PO BID 0RF ondansetron HCl 4 mg tablet 4 mg PO DIRECTED PRN (Reason: Nausea) 0RF clonazepam 0.5 mg tablet 0.5 mg PO BID PRN (Reason: Anxiety) 0RF dextroamphetamine-amphetamine 20 mg capsule,extended release 24hr 40 mg PO DAILY 0RF gabapentin 300 mg capsule 900 mg PO BID 0RF insulin lispro [Humalog U-100 Insulin] 100 unit/mL solution subcut 0RF Rx Instructions: Typically receives Humalog through your insulin pump (omnipod) but ran out of [employer] last week so he has been injecting insulin since Friday. metoclopramide HCl 10 mg tablet 10 mg PO BID 0RF Trulicity 1.5 mg/0.5 mL pen injector 0.5 ml subcut QWEEK 0RF Interventions: ED Discharge Assessment Last Done: 07/05/21 03:22 Discharge Date/Time: 07/05/21 03:23
--- NOTE | 2021-07-04 22:24 | PC.NURSE ---
at bedside for primary eval.
[2021-07-04] MEDS: ondansetron HCL 4 MG/2 ML VIAL IVPUSH (22:43)
[2021-07-04] MEDS: 0.9 % Sodium Chloride 1,000 ML 999 ML IV ×2 (22:43→23:43)
[2021-07-04] MEDS: Morphine Sulfate 4 MG/ML CARTRIDGE IVPUSH (22:43)
--- NOTE | 2021-07-04 22:53 | PC.NURSE ---
IV established, BCX, lactic and UA obtained and sent. Pt medicated per JUL for abdominal pain. Pt off to CT on hospital bed.
[2021-07-04 22:54] LABS: Thyroid Stimulating Hormone 0.73 uIU/mL (0.32-4.0)
[2021-07-04 22:56] LABS: Appearance Urine CLEAR; Color Urine YELLOW; Glucose Urine UA >=1000 MG/DL (NEG); Leukocyte Esterase Urine NEG (NEG); Nitrite Urine NEG (NEG); PH 5.5 (5.0-8.0); Specific Gravity - Urine 1.025 (1.005-1.025); UACC Culture Trigger NO; Urine Blood 1+ (NEG); Urine Ketones 40 MG/DL (NEG); Urine Protein 2+ MG/DL (NEG-TRACE)
[2021-07-04 22:59] LABS: Lactic Acid 3.4 mmol/L (0.5-2.0)
[2021-07-04] MEDS: iohexoL 350 MG/ML 100 ML INFUS..BTL 85 ML IV (23:11)
[2021-07-04 23:12] LABS: RBC Urine 0-2 /HPF (0); Squamous Epithelial Cell Urine TRACE /LPF; WBC Urine 0-2 /HPF (0-4)
[2021-07-04] MEDS: Piperacillin Sodium/Tazobactam 3.375 GM in 0.9 % Sodium Chloride 50 ML IV (23:41)
[2021-07-04 23:44] VITALS: BP 122/66; PULSE 104; RESP 16; O2SAT 97
--- NOTE | 2021-07-04 23:54 | PC.NURSE ---
Medicated per MAR. VSS, pt noted to be pain free. Med Rec completed at bedside with pt. Pt awaiting room assignment.
[2021-07-05 00:06] LABS: Glucose, Whole Blood 397 mg/dL (60-115)
[2021-07-05] MEDS: Insulin Lispro 100 UNIT/ML 3 ML VIAL 14 UNIT SUBCUT (00:31)
[2021-07-05 00:46] LABS: Reflex Lactate? Lactic Acid Added
[2021-07-05 01:07] VITALS: BP 121/65; PULSE 98; RESP 18
[2021-07-05 01:18] VITALS: BP 131/61; PULSE 90; RESP 16
[2021-07-05 01:29] LABS: ~Lactic Acid-LAB USE ONLY 4.2 mmol/L (0.5-2.0)
--- NOTE | 2021-07-05 01:31 | PC.NURSE ---
MD at bedside discussing results and plan of care.
[2021-07-05 01:40] LABS: Glucose, Whole Blood 287 mg/dL (60-115)
[2021-07-05 01:47] LABS: Acetone, serum QL Negative (Negative)
--- NOTE | 2021-07-05 01:53 | PC.NURSE ---
MD at bedside discussing results and plan of care.
[2021-07-05 01:55] LABS: C Reactive Protein 1.49 mg/dL (< or = 0.50)
--- NOTE | 2021-07-05 01:58 | PC.NURSE ---
Fadi (otoniel) [phone] to be called with updates.
[2021-07-05 02:50] LABS: Procalcitonin 0.03 ng/mL
--- NOTE | 2021-07-05 03:08 | PC.NURSE ---
Pt tolerating PO well. MD aware. Plan for DC.
[2021-07-05 03:12] VITALS: BP 156/70; PULSE 93; RESP 16; TEMP 36.5; O2SAT 98
[2021-07-05 03:15] LABS: Reflex Lactate? 2 Y
== END 2021-07-05 03:23 | disposition home or self-care (01) ==
PROVIDERS: Emergency Provider Internal Medicine; PCP Family Medicine
DX: E10.43 Type 1 diabetes mellitus with diabetic autonomic (poly)neuropathy (principal); E10.65 Type 1 diabetes mellitus with hyperglycemia; K31.84 Gastroparesis; Z79.4 Long term (current) use of insulin; Z20.822 Contact with and (suspected) exposure to COVID-19
CPT/HCPCS: 36415; 71045; 74177; 80048; 80076; 81001; 82009; 82947; 83605; 83690; 84145; 84443; 85025; 86140; 87040; 87635; 96361; 96365; 96375; 99284; J2270; J2405; J2543; Q9967

== ENCOUNTER 2021-11-26 16:07 | Inpatient (IN) | payer MEDICARE, OTHER, SELFPAY ==
--- NOTE | ~2021-11-26 | US_ITS ---
EXAMINATION: US EXTRACRANIAL CAROTID DUPLEX, BILATERAL CLINICAL INFORMATION: NSTEMI. Near syncope with hyperextension. COMPARISON: None TECHNIQUE: Real-time ultrasound and Doppler techniques (integrating B-mode 2-D vascular images, Doppler spectral analysis and color-flow Doppler imaging) were utilized to interrogate the extracranial carotid arteries, the vertebral arteries and proximal subclavian arteries bilaterally. The degree of stenosis is determined by criteria similar to NASCET. FINDINGS: Right Side: 1. There is mild atherosclerotic plaque seen in the bifurcation/proximal ICA region. 2. The common carotid artery PSV proximally is 147 cm/s and distally 69 cm/s. 3. The proximal internal carotid artery velocities are 81 cm/s systolic and 19 cm/s diastolic. 4. The proximal external carotid artery PSV is 139 cm/s. 5. The vertebral artery shows antegrade flow. 6. The subclavian artery waveforms show elevated peak systolic velocity 214 cm/s. Left Side: 1. There is moderate atherosclerotic plaque seen in the bifurcation/proximal ICA region. 2. The common carotid artery PSV proximally is 141 cm/s and distally 72 cm/s. 3. The proximal internal carotid artery velocities are 296 cm/s systolic and 65 cm/s diastolic. 4. The proximal external carotid artery PSV is 169 cm/s. 5. The vertebral artery shows antegrade flow. 6. The subclavian artery waveforms show elevated peak systolic velocity 221 cm/s.. US/US carotid duplex BI IMPRESSION: 1. RIGHT: Minimal, non-hemodynamically significant stenosis of the proximal right internal carotid artery corresponding to a 0-49% stenosis by velocity criteria. 2. LEFT: Moderate, hemodynamically significant stenosis of the proximal left internal carotid artery corresponding to a 50-79% stenosis by velocity criteria. 3. Elevated peak systolic velocity of the right and left subclavian arteries suggesting stenosis.
--- NOTE | ~2021-11-26 | XR_ITS ---
EXAMINATION: XR CHEST CLINICAL INFORMATION: Dizziness COMPARISON: 07/04/2021 TECHNIQUE: 2 views of the chest were obtained. FINDINGS: No significant abnormality is noted involving the heart, lungs, mediastinum, bony thorax or soft tissues. XR/XR chest 2V IMPRESSION: Unremarkable examination.
[2021-11-26 16:17] VITALS: BP 135/68; BP 147/94; PULSE 103; RESP 20; TEMP 36.9; O2SAT 98; BMI 28.5
--- NOTE | 2021-11-26 16:36 | ED.GENADULT ---
HPI - General Adult General Chief complaint: General Medical Stated complaint: DOES NOT FEEL WELL,WEAK,CRAMPS Time Seen by Provider: 11/26/21 16:36 Source: patient and EMS Mode of arrival: EMS Limitations: no limitations History of Present Illness HPI narrative: Patient is a 66 year old male presenting to the emergency department today with nausea, weakness, and dizziness. Patient states that last night, he ate panera and shortly after started to having abdominal cramping. Patient states that starting today, he began to feel weak, dizzy, and nauseous. Patient denies any current dizziness, lightheadedness, abdominal pain, fever, chills, blurry vision, double vision, loss of vision, chest pain, difficulty breathing, shortness of breath, back pain, night sweats, pain with urination, increased urinary frequency, increased urinary urgency, blood in his urine or stool, syncope or a near syncopal episode, recent trauma or falls, bowel incontinence, bladder incontinence, bowel retention, bladder retention, or any other complaints at this time. Patient denies any cardiac history. Patient states that he is a diabetic and is currently in the process of transitioning insulin methods. Onset (ago): hour(s) Severity: mild Relieving factors: none Exacerbating factors: none Associated symptoms: weakness Treatments prior to arrival: none Related Data Home Medications Medication Instructions Recorded Confirmed buspirone 5 mg tablet 7.5 mg PO BID 07/04/21 11/26/21 clonazepam 0.5 mg tablet 0.5 mg PO BID PRN Anxiety 07/04/21 11/26/21 dextroamphetamine-amphetamine ER 40 mg PO DAILY 07/04/21 11/26/21 20 mg 24hr capsule,extend release dulaglutide 1.5 mg/0.5 mL 0.5 ml subcut QWEEK 07/04/21 11/26/21 subcutaneous pen injector (Trulicity) gabapentin 300 mg capsule 900 mg PO BID 07/04/21 11/26/21 insulin lispro 100 unit/mL 135 unit subcut DAILY 07/04/21 11/26/21 subcutaneous solution (Humalog U-100 Insulin) metformin 500 mg tablet 3,000 mg PO BID 07/04/21 11/26/21 metoclopramide HCl 10 mg tablet 10 mg PO BID 07/04/21 11/26/21 ondansetron HCl 4 mg tablet 4 mg PO DIRECTED PRN Nausea 07/04/21 11/26/21 ibuprofen 800 mg tablet 800 mg PO Q6H PRN Pain 11/26/21 11/26/21 omeprazole 20 mg tablet,delayed 20 mg PO BID 11/26/21 11/26/21 release Allergies Allergy/AdvReac Type Severity Reaction Status Date / Time liraglutide [From VICTOZA] Allergy Unknown UNKNOWN Verified 07/04/21 18:47 Review of Systems Constitutional: Constitutional: Reports no additional constitutional complaints, Denies chills, Denies fever(s), Denies night sweats and Reports weakness Eyes: Eyes: Reports no additional eye complaints, Denies blurry vision, Denies change in vision, Denies diplopia, Denies eye discharge, Denies loss of vision and Denies eye pain ENT: Denies dizziness Cardiovascular: Cardiovascular: Reports no additional cardiovascular complaints, Denies chest pain, Denies lightheadedness, Denies Loss of Consciousness and Denies dyspnea Respiratory: Respiratory: Reports no additional respiratory complaints and Denies dyspnea Gastrointestinal: Gastrointestinal: Reports no additional gastrointestinal complaints, Denies abdominal pain, Denies melena, Denies hematochezia, Denies change in bowel habits, Denies change in stool character and Reports nausea Genitourinary: Genitourinary: Reports no additional male genitourinary complaints, Denies hematuria, Denies oliguria, Denies difficulty urinating, Denies dysuria, Denies urinary frequency, Denies urinary hesitancy, Denies urinary incontinence and Denies urinary urgency Musculoskeletal: Musculoskeletal: Reports no additional musculoskeletal complaints, Denies numbness and Denies tingling Neurologic: Denies dizziness, Denies loss of vision, Denies numbness, Denies tingling and Reports weakness Psychiatric: Psychiatric: Reports no additional psychiatric complaints Endocrine: Endocrine: Reports no additional endocrine complaints Hematologic/Lymphatic: Hematologic/Lymphatic: Reports no additional hematologic/lymphatic complaints Allergic/Immunologic: Allergic/Immunologic: Reports no additional allergic/immunologic complaints PMFSH Past Medical History Attestation statement: The following information was validated with the patient. Source: old records reviewed Medical History Gastroparesis Insulin dependent type 1 diabetes mellitus Social History Social History Alcohol intake: current Patient Tobacco Use Status: Never used Tobacco Use of substances other than those prescribed or required for medical reasons: No Advance Directives: No Advance Directives Information Provided: No Physical Exam ED Vital Signs: Vital Signs - 24 hr 11/26/21 16:17 11/26/21 18:16 Temperature 98.4 F Pulse Rate 103 H 100 Respiratory Rate 20 16 Blood Pressure 147/94 H 166/79 H Pulse Oximetry 98 98 Oxygen Delivery Method Room Air Room Air BMI result Body Mass Index 28.5 Const General: cooperative, alert, awake and diaphoretic (mildly) Nutritional Appearance: well nourished Orientation/consciousness: patient oriented x3 Limitations: no limitations HENMT Head: Yes normal to inspection and Yes atraumatic Ears: hearing grossly normal bilaterally and external ears normal General nose exam: Normal external nose present, no nasal discharge noted and no epistaxis Face and sinus: Yes normal facial exam, No abrasion and No laceration Mouth: Normal oral and palatal mucosa present, no drooling and no muffled voice Eyes General: appearance normal, both eyes and all related structures Periorbital: periorbital findings normal Eyelids: Yes eyelids normal Conjunctivae: conjunctivae normal Pupils: Equal, round and reactive pupils present EOM: EOMs intact bilaterally Neck Neck: Yes normal visual inspection, Yes full ROM and Yes no lymphadenopathy Chest Chest palpation & inspection: normal inspection of the chest Resp Effort & Inspection: normal respiratory effort and able to speak in complete sentences Auscultation: clear to auscultation bilaterally Cardio Rate: tachycardic Rhythm: regular rhythm GI Inspection: Yes normal to inspection Palpation (GI): Soft to palpation, not firm, nontender, no guarding and not rigid Neuro General: patient oriented x3 and moves all extremities Cranial nerves: Yes Equal, round and reactive pupils present Cognition (Neuro): normal cognition Motor exam (neuro): 5/5 motor strength present throughout Sensory Exam: Normal double simultaneous stimulation for sensation Coordination: [id number] test normal Extrem General: Yes normal to inspection, Yes full ROM and Yes capillary refill normal Psych Appearance: grossly normal Mental Status: mental status grossly normal Affect: normal affect Attitude: cooperative Thought process: Normal thought process present Thought content: Normal thought content present Insight: Good insight present (Psych) Medical Decision Making MDM Narrative Medical decision making narrative: Patient is a 66 year old male presenting to the emergency department today with nausea and weakness. Patient's physical exam showed mild diaphoresis and tachycardia but was otherwise unremarkable. Patient's blood work showed an initially elevated troponin of 762.5 with a repeat of 911.6. Patient did have an elevated white blood cell count of 13.7 however, this is chronic for the patient and the patient's presentation is not consistent with sepsis or any septic picture. Patient's urine showed no acute process. Patient's EKG and repeat EKG were unremarkable. Patient's chest x-ray showed no acute process. I spoke to Dr. Aranda who recommended the patient be started on a Heparin drip, giving 50mg of Metoprolol PO and ASA with hospital admission. I explained my physical exam findings as well as all test results to the patient. I answered all questions asked by the patient. I spoke to Dr. Franks who agreed to hospital admission. Patient verbalized agreement and understanding with this treatment plan and admission. Differential Diagnosis Differential Diagnosis: NSTEMI Medical Records Medical records reviewed: Yes I reviewed the patient's medical records. Lab Data Lab results reviewed: Yes I reviewed the patient's lab results. Result diagrams: 11/26/21 19:22 11/26/21 17:27 Labs: Lab Results 11/26/21 11/26/21 11/26/21 Range/Units 17:26 17:27 17:27 WBC (4.8-10.8) X10*3/uL RBC (4.60-5.80) X10*6/uL Hgb (14.0-18.0) g/dl Hct (42.0-52.0) % MCV (80.0-98.0) fL MCH (27.0-33.0) pg MCHC (31.0-36.0) g/dl RDW (11.0-16.0) % Plt Count (160-400) X10*3/uL MPV (9.4-12.4) fL Immature Gran % (Auto) (0.0-0.4) % Neut % (Auto) (45-73) % Lymph % (Auto) (20-40) % [place] % (Auto) (2-11) % Eos % (Auto) (0-4) % Baso % (Auto) (0-2) % Lymph # (Auto) (1.2-4.9) X10*3/uL [place] # (Auto) (0.1-1.2) X10*3/uL Eos # (Auto) (0.0-0.4) X10*3/uL Baso # (Auto) (0.0-0.2) X10*3/uL Abs Immat Gran (auto) (0.00-0.03) X10*3/uL Absolute Neuts (auto) (2.0-8.3) x10*3/uL Absolute Nucleated RBC (0.0-0.012) X10*3/uL Nucleated RBC % (auto) (0.0-0.2) /100WBC PT (10.0-13.1) SEC INR (0.9-1.1) aPTT Heparin Protocol (53-77.9) SEC VBG pH (7.32-7.43) VBG pCO2 mmHg VBG pO2 mmHg VBG HCO3 (22-26) mmol/L VBG O2 Saturation % VBG Base Excess mmol/L Sodium 135 (135-145) mmol/L Potassium 3.7 D (3.3-5.1) mmol/L Chloride 99 (96-108) mmol/L Carbon Dioxide 25 (22-29) mmol/L Anion Gap 15 (12-20) BUN 11 (9-16) mg/dL Creatinine 0.83 (0.5-1.4) mg/dL Estim Creat Clear Calc 91.2 Estimated GFR > 60 Random Glucose 335 H (60-115) mg/dL Lactic Acid 1.7 (0.5-2.0) mmol/L Calcium 8.5 D (8.4-10.2) mg/dL Magnesium 1.6 (1.6-2.6) mg/dL Total Bilirubin 0.7 (0.0-1.0) mg/dL AST 23 (5-37) U/L ALT 29 (0-40) U/L Alkaline Phosphatase 116 (39-117) U/L Troponin I High Sens 762.5 H* D (<3.5-35.0) ng/L Total Protein 6.7 D (6.5-8.0) g/dL Albumin 4.0 (3.5-5.0) g/dL Urine Color Urine Appearance Urine pH (5.0-8.0) Ur Specific [place] (1.005-1.025) Urine Protein (NEG-TRACE) MG/DL Urine Glucose (UA) (NEG) MG/DL Urine Ketones (NEG) MG/DL Urine Blood (NEG) Urine Nitrite (NEG) Ur Leukocyte Esterase (NEG) Urine RBC (0) /HPF Urine WBC (0-4) /HPF Ur Squamous Epith Cells /LPF Urine Bacteria /LPF COVID-19 ([facility]) (Negative) COVID-19 Clin Com 11/26/21 11/26/21 11/26/21 Range/Units 17:32 17:39 17:40 WBC 12.0 H (4.8-10.8) X10*3/uL RBC 5.75 (4.60-5.80) X10*6/uL Hgb 16.0 (14.0-18.0) g/dl Hct 47.1 (42.0-52.0) % MCV 81.9 (80.0-98.0) fL MCH 27.8 (27.0-33.0) pg MCHC 34.0 (31.0-36.0) g/dl RDW 12.5 (11.0-16.0) % Plt Count 236 (160-400) X10*3/uL MPV 9.6 (9.4-12.4) fL Immature Gran % (Auto) 0.3 (0.0-0.4) % Neut % (Auto) 85.6 H (45-73) % Lymph % (Auto) 8.3 L (20-40) % [place] % (Auto) 5.6 (2-11) % Eos % (Auto) 0.0 (0-4) % Baso % (Auto) 0.2 (0-2) % Lymph # (Auto) 1.0 L (1.2-4.9) X10*3/uL [place] # (Auto) 0.7 (0.1-1.2) X10*3/uL Eos # (Auto) 0.0 (0.0-0.4) X10*3/uL Baso # (Auto) 0.0 (0.0-0.2) X10*3/uL Abs Immat Gran (auto) 0.04 H (0.00-0.03) X10*3/uL Absolute Neuts (auto) 10.3 H (2.0-8.3) x10*3/uL Absolute Nucleated RBC 0.000 (0.0-0.012) X10*3/uL Nucleated RBC % (auto) 0.0 (0.0-0.2) /100WBC PT (10.0-13.1) SEC INR (0.9-1.1) aPTT Heparin Protocol (53-77.9) SEC VBG pH 7.47 H (7.32-7.43) VBG pCO2 29 mmHg VBG pO2 153 mmHg VBG HCO3 21 L (22-26) mmol/L VBG O2 Saturation 99.0 % VBG Base Excess -0.4 mmol/L Sodium (135-145) mmol/L Potassium (3.3-5.1) mmol/L Chloride (96-108) mmol/L Carbon Dioxide (22-29) mmol/L Anion Gap (12-20) BUN (9-16) mg/dL Creatinine (0.5-1.4) mg/dL Estim Creat Clear Calc Estimated GFR Random Glucose (60-115) mg/dL Lactic Acid (0.5-2.0) mmol/L Calcium (8.4-10.2) mg/dL Magnesium (1.6-2.6) mg/dL Total Bilirubin (0.0-1.0) mg/dL AST (5-37) U/L ALT (0-40) U/L Alkaline Phosphatase (39-117) U/L Troponin I High Sens (<3.5-35.0) ng/L Total Protein (6.5-8.0) g/dL Albumin (3.5-5.0) g/dL Urine Color Urine Appearance Urine pH (5.0-8.0) Ur Specific [place] (1.005-1.025) Urine Protein (NEG-TRACE) MG/DL Urine Glucose (UA) (NEG) MG/DL Urine Ketones (NEG) MG/DL Urine Blood (NEG) Urine Nitrite (NEG) Ur Leukocyte Esterase (NEG) Urine RBC (0) /HPF Urine WBC (0-4) /HPF Ur Squamous Epith Cells /LPF Urine Bacteria /LPF COVID-19 ([facility]) Negative (Negative) COVID-19 Clin Com 0 11/26/21 11/26/21 11/26/21 Range/Units 17:41 19:21 19:22 WBC 13.7 H (4.8-10.8) X10*3/uL RBC 5.96 H (4.60-5.80) X10*6/uL Hgb 16.7 (14.0-18.0) g/dl Hct 49.0 (42.0-52.0) % MCV 82.2 (80.0-98.0) fL MCH 28.0 (27.0-33.0) pg MCHC 34.1 (31.0-36.0) g/dl RDW 12.5 (11.0-16.0) % Plt Count 250 (160-400) X10*3/uL MPV 9.4 (9.4-12.4) fL Immature Gran % (Auto) (0.0-0.4) % Neut % (Auto) (45-73) % Lymph % (Auto) (20-40) % [place] % (Auto) (2-11) % Eos % (Auto) (0-4) % Baso % (Auto) (0-2) % Lymph # (Auto) (1.2-4.9) X10*3/uL [place] # (Auto) (0.1-1.2) X10*3/uL Eos # (Auto) (0.0-0.4) X10*3/uL Baso # (Auto) (0.0-0.2) X10*3/uL Abs Immat Gran (auto) (0.00-0.03) X10*3/uL Absolute Neuts (auto) (2.0-8.3) x10*3/uL Absolute Nucleated RBC 0.000 (0.0-0.012) X10*3/uL Nucleated RBC % (auto) 0.0 (0.0-0.2) /100WBC PT (10.0-13.1) SEC INR (0.9-1.1) aPTT Heparin Protocol (53-77.9) SEC VBG pH (7.32-7.43) VBG pCO2 mmHg VBG pO2 mmHg VBG HCO3 (22-26) mmol/L VBG O2 Saturation % VBG Base Excess mmol/L Sodium (135-145) mmol/L Potassium (3.3-5.1) mmol/L Chloride (96-108) mmol/L Carbon Dioxide (22-29) mmol/L Anion Gap (12-20) BUN (9-16) mg/dL Creatinine (0.5-1.4) mg/dL Estim Creat Clear Calc Estimated GFR Random Glucose (60-115) mg/dL Lactic Acid (0.5-2.0) mmol/L Calcium (8.4-10.2) mg/dL Magnesium (1.6-2.6) mg/dL Total Bilirubin (0.0-1.0) mg/dL AST (5-37) U/L ALT (0-40) U/L Alkaline Phosphatase (39-117) U/L Troponin I High Sens 911.6 H* (<3.5-35.0) ng/L Total Protein (6.5-8.0) g/dL Albumin (3.5-5.0) g/dL Urine Color YELLOW Urine Appearance CLEAR Urine pH 6.5 (5.0-8.0) Ur Specific [place] 1.010 (1.005-1.025) Urine Protein 1+ H (NEG-TRACE) MG/DL Urine Glucose (UA) >=1000 H (NEG) MG/DL Urine Ketones 15 (NEG) MG/DL Urine Blood NEG (NEG) Urine Nitrite NEG (NEG) Ur Leukocyte Esterase NEG (NEG) Urine RBC 0 (0) /HPF Urine WBC 0 (0-4) /HPF Ur Squamous Epith Cells NONE /LPF Urine Bacteria TRACE /LPF COVID-19 ([facility]) (Negative) COVID-19 Clin Com 11/26/21 Range/Units 19:22 WBC (4.8-10.8) X10*3/uL RBC (4.60-5.80) X10*6/uL Hgb (14.0-18.0) g/dl Hct (42.0-52.0) % MCV (80.0-98.0) fL MCH (27.0-33.0) pg MCHC (31.0-36.0) g/dl RDW (11.0-16.0) % Plt Count (160-400) X10*3/uL MPV (9.4-12.4) fL Immature Gran % (Auto) (0.0-0.4) % Neut % (Auto) (45-73) % Lymph % (Auto) (20-40) % [place] % (Auto) (2-11) % Eos % (Auto) (0-4) % Baso % (Auto) (0-2) % Lymph # (Auto) (1.2-4.9) X10*3/uL [place] # (Auto) (0.1-1.2) X10*3/uL Eos # (Auto) (0.0-0.4) X10*3/uL Baso # (Auto) (0.0-0.2) X10*3/uL Abs Immat Gran (auto) (0.00-0.03) X10*3/uL Absolute Neuts (auto) (2.0-8.3) x10*3/uL Absolute Nucleated RBC (0.0-0.012) X10*3/uL Nucleated RBC % (auto) (0.0-0.2) /100WBC PT 11.3 (10.0-13.1) SEC INR 1.0 (0.9-1.1) aPTT Heparin Protocol 92.3 H (53-77.9) SEC VBG pH (7.32-7.43) VBG pCO2 mmHg VBG pO2 mmHg VBG HCO3 (22-26) mmol/L VBG O2 Saturation % VBG Base Excess mmol/L Sodium (135-145) mmol/L Potassium (3.3-5.1) mmol/L Chloride (96-108) mmol/L Carbon Dioxide (22-29) mmol/L Anion Gap (12-20) BUN (9-16) mg/dL Creatinine (0.5-1.4) mg/dL Estim Creat Clear Calc Estimated GFR Random Glucose (60-115) mg/dL Lactic Acid (0.5-2.0) mmol/L Calcium (8.4-10.2) mg/dL Magnesium (1.6-2.6) mg/dL Total Bilirubin (0.0-1.0) mg/dL AST (5-37) U/L ALT (0-40) U/L Alkaline Phosphatase (39-117) U/L Troponin I High Sens (<3.5-35.0) ng/L Total Protein (6.5-8.0) g/dL Albumin (3.5-5.0) g/dL Urine Color Urine Appearance Urine pH (5.0-8.0) Ur Specific [place] (1.005-1.025) Urine Protein (NEG-TRACE) MG/DL Urine Glucose (UA) (NEG) MG/DL Urine Ketones (NEG) MG/DL Urine Blood (NEG) Urine Nitrite (NEG) Ur Leukocyte Esterase (NEG) Urine RBC (0) /HPF Urine WBC (0-4) /HPF Ur Squamous Epith Cells /LPF Urine Bacteria /LPF COVID-19 ([facility]) (Negative) COVID-19 Clin Com Imaging Data Chest x-ray: Attestation: I personally reviewed and interpreted this imaging study as follows: My impression: No acute process. Radiologist's impression: EXAMINATION: XR CHEST CLINICAL INFORMATION: Dizziness COMPARISON: 07/04/2021 TECHNIQUE: 2 views of the chest were obtained. FINDINGS: No significant abnormality is noted involving the heart, lungs, mediastinum, bony thorax or soft tissues. XR/XR chest 2V IMPRESSION: Unremarkable examination. Dictated By: Roni Hagen MD Signed By: Electronically signed by Roni Hagen MD 11/26/211938 ECG Data Attestation: I personally reviewed and interpreted this ECG as follows: Prior ECG tracings: available for review Interpretation: Vent. Rate: 104 BPM ? ? Atrial Rate: 104 BPM P-R Int: 170 ms? QRS Dur: 076 ms QT Int: 386 ms ? ? ? P-R-T Axes: 066 045 081 degrees QTc Int: 507 ms ? Sinus tachycardia Septal infarct (cited on or before 24-APR-2021) Abnormal ECG When compared with ECG of 24-APR-2021 14:42, Vent. rate has increased BY? 37 BPM Nonspecific T wave abnormality now evident in Anterolateral leads QT has lengthened DD/ 1633 Vent. Rate: 100 BPM ? ? Atrial Rate: 100 BPM P-R Int: 168 ms? QRS Dur: 074 ms QT Int: 406 ms ? ? ? P-R-T Axes: 062 026 075 degrees QTc Int: 523 ms ? Normal sinus rhythm Nonspecific T wave abnormality Prolonged QT Abnormal ECG When compared with ECG of 26-NOV-2021 16:33, No significant change was found ? DD/ [id number] Critical Care Time Critical Care Time Critical Care Time: Yes Total Critical Care Time: 30 Attestation: I spent 30 minutes of Critical Care Time with this patient. This does not include time spent on separately reported billable procedures. Discharge Plan Discharge Clinical Impression: Acute non-ST elevation myocardial infarction (NSTEMI) Patient Disposition: Admitted As Inpatient
--- NOTE | 2021-11-26 16:37 | ECG_ITS ---
Test Reason : DIZZYNESS Blood Pressure : / mmHG Vent. Rate : 104 BPM Atrial Rate : 104 BPM P-R Int : 170 ms QRS Dur : 076 ms QT Int : 386 ms P-R-T Axes : 066 045 081 degrees QTc Int : 507 ms Sinus tachycardia Septal infarct (cited on or before 24-APR-2021) possible inferior infarct, undetermined age Abnormal ECG When compared with ECG of 24-APR-2021 14:42, Vent. rate has increased BY 37 BPM Nonspecific T wave abnormality now evident in Anterolateral leads QT has lengthened Referred By: Vianey Holman Electronically Signed By:STEFFI WEISS
[2021-11-26] MEDS: 0.9 % Sodium Chloride 500 ML IV (16:43)
--- NOTE | 2021-11-26 16:47 | PC.NURSE ---
EKG completed by tech
[2021-11-26 17:37] LABS: Venous Blood Gas Refer to POC result
[2021-11-26 17:37] LABS: VBG Base Excess -0.4 mmol/L; VBG HCO3 21 mmol/L (22-26); VBG pCO2 29 mmHg; VBG pH 7.47 (7.32-7.43); VBG pO2 153 mmHg
[2021-11-26 17:47] LABS: Lactic Acid 1.7 mmol/L (0.5-2.0)
[2021-11-26 17:52] LABS: MANUAL DIFF FLAG NO
[2021-11-26 17:52] LABS: Alanine Aminotransferase 29 U/L (0-40); Alkaline Phosphatase 116 U/L (39-117); Anion Gap 15 (12-20); Aspartate Amino Transferase 23 U/L (5-37); Bilirubin Total 0.7 mg/dL (0.0-1.0); Blood Urea Nitrogen 11 mg/dL (9-16); Calcium 8.5 mg/dL (8.4-10.2); Carbon Dioxide 25 mmol/L (22-29); Chloride 99 mmol/L (96-108); Creatinine Clr Calc Pharmacy 91.2; Estimated Glomerular Filt Rate > 60; Glucose Random 335 mg/dL (60-115); Magnesium 1.6 mg/dL (1.6-2.6); Potassium 3.7 mmol/L (3.3-5.1); Sodium 135 mmol/L (135-145); Total Protein 6.7 g/dL (6.5-8.0)
[2021-11-26 17:54] LABS: Appearance Urine CLEAR; Color Urine YELLOW; Glucose Urine UA >=1000 MG/DL (NEG); Leukocyte Esterase Urine NEG (NEG); Nitrite Urine NEG (NEG); PH 6.5 (5.0-8.0); UACC Culture Trigger NO; Urine Blood NEG (NEG); Urine Ketones 15 MG/DL (NEG); Urine Protein 1+ MG/DL (NEG-TRACE)
[2021-11-26 17:55] LABS: Basophils Percent Auto 0.2 % (0-2); Hematocrit 47.1 % (42.0-52.0); Imm Gran Abs Auto 0.04 X10*3/uL (0.00-0.03); Imm Gran Pct Auto 0.3 % (0.0-0.4); Lymphocytes Percent Auto 8.3 % (20-40); Mean Corpuscular Hemoglobin 27.8 pg (27.0-33.0); Mean Corpuscular Volume 81.9 fL (80.0-98.0); Mean Platelet Volume 9.6 fL (9.4-12.4); Monocytes Absolute Auto 0.7 X10*3/uL (0.1-1.2); Monocytes Percent Auto 5.6 % (2-11); Neutrophils Absolute Auto 10.3 x10*3/uL (2.0-8.3); Neutrophils Percent Auto 85.6 % (45-73); Platelet Count 236 X10*3/uL (160-400); Red Blood Count 5.75 X10*6/uL (4.60-5.80); Red Cell Distribution Width 12.5 % (11.0-16.0)
[2021-11-26 18:06] LABS: Troponin-I High Sensitivity 762.5 ng/L (<3.5-35.0)
--- NOTE | 2021-11-26 18:10 | ECG_ITS ---
Test Reason : DIZZYNESS Blood Pressure : / mmHG Vent. Rate : 100 BPM Atrial Rate : 100 BPM P-R Int : 168 ms QRS Dur : 074 ms QT Int : 406 ms P-R-T Axes : 062 026 075 degrees QTc Int : 523 ms Normal sinus rhythm old septal infarct Nonspecific T wave abnormality Prolonged QT Abnormal ECG When compared with ECG of 26-NOV-2021 16:33, No significant change was found Referred By: Vianey Holman Electronically Signed By:STEFFI WEISS
[2021-11-26 18:11] LABS: WBC Urine 0 /HPF (0-4)
[2021-11-26 18:12] LABS: Bacteria Urine TRACE /LPF; RBC Urine 0 /HPF (0)
--- NOTE | 2021-11-26 18:15 | PC.NURSE ---
trop 762. MD aware. second EKG being obtained at this time. bedside
[2021-11-26 18:16] VITALS: BP 166/79; PULSE 100; RESP 16; O2SAT 98
[2021-11-26 18:27] LABS: COVID-19 Note 0; COVID-19 Test Negative (Negative); IDNOW Serial# 55D5AD1C
[2021-11-26] MEDS: Heparin Sodium,Porcine 5,000 UNIT/ML VIAL 4000 UNIT IVPUSH (18:30)
[2021-11-26] MEDS: Metoprolol Succinate ER 50 MG TAB.ER.24H PO (18:30)
[2021-11-26] MEDS: Aspirin 325 MG TABLET PO (18:30)
--- NOTE | 2021-11-26 19:02 | PC.NURSE ---
report to SHREYAS Bernstein at this time. Pt is stable. Pt has been provided with ASA, Metoprolol, and bolus heparin. Pt pending labs in order to verify Heparin starting dose. Tech attempted labs, unsuccessful. SHREYAS bernstein to attempt labs at this time. Pt weight has been verified. Pt having Nstemi but denies pain or SOB.
[2021-11-26 19:26] LABS: Hemoglobin 16.7 g/dl (14.0-18.0); Mean Corpuscular HGB Conc 34.1 g/dl (31.0-36.0); Mean Corpuscular Volume 82.2 fL (80.0-98.0); Mean Platelet Volume 9.4 fL (9.4-12.4); Platelet Count 250 X10*3/uL (160-400); Red Blood Count 5.96 X10*6/uL (4.60-5.80); Red Cell Distribution Width 12.5 % (11.0-16.0); White Blood Count 13.7 X10*3/uL (4.8-10.8)
[2021-11-26 19:33] LABS: Prothrombin Time 11.3 SEC (10.0-13.1)
[2021-11-26 19:36] LABS: PTT Heparin Drip 92.3 SEC (53-77.9)
[2021-11-26 19:57] LABS: Troponin-I High Sensitivity 911.6 ng/L (<3.5-35.0)
--- NOTE | 2021-11-26 20:06 | PHA.MEDREC ---
Pharmacy Consult ? Medication Reconciliation Pharmacy has completed the medication reconciliation Spoke to patient, patient did mention they take about 6 -9 tablets of advil a day. Also admits to not taking his trulicity.
[2021-11-26] MEDS: Heparin Sodium,Porcine/1/2NS 25,000 UNIT/250 ML IV.SOLN 9.91 UNIT IVCONT (20:15)
--- NOTE | 2021-11-26 20:49 | P.HPHOSP_ITS ---
History of Present Illness Date of Service: 11/26/21 Chief Complaint: not feeling well This is a 66-year-old with history of diabetes and diabetic neuropathy who comes into the hospital with multiple complaints. Patient reports that the night before he had dinner at a restaurant, he got home, felt cramps in his stomach, but could not use the bathroom. In the morning when he woke up this same diffuse abdominal cramp continued, he reports that he had a lot of straining and finally followed by a BM which resolved the cramping but he continued to feel unwell all day long and has significant diaphoresis throughout the day. He felt nauseous with no vomiting, he denied having any chest pain, no palpitations, no shortness of breath, he reports no headache or change in vision, no diarrhea, no urinary symptoms and no lower extremity edema. On arrival to the ED hemodynamically stable Labs are significant for WBC count of 13.7, hemoglobin 16.7, pH of 7.47, troponin of 760 to increase to 911, UA negative EKG showed for ST abnormalities in leads 1 and 2 and AVF, reviewed reviewed by Cardiology, and recommended heparin drip Patient will be admitted for further management Review of Systems Review of Systems: Yes all other systems are reviewed and are negative [facility] Medical History (Updated 11/27/21 @ 02:34 by Shyanne Franks MD) Gastroparesis Insulin dependent type 1 diabetes mellitus Neuropathy Family History (Updated 11/27/21 @ 02:34 by Shyanne Franks MD) Mother CAD (coronary artery disease) Brother CAD (coronary artery disease) Surgical History (Updated 11/27/21 @ 02:34 by Shyanne Franks MD) H/O eye surgery Social History Alcohol intake: current Patient Tobacco Use Status: Never used Tobacco Use of substances other than those prescribed or required for medical reasons: No Advance Directives: No Advance Directives Information Provided: No Meds Allergies Allergy/AdvReac Type Severity Reaction Status Date / Time liraglutide [From VICTOZA] Allergy Unknown UNKNOWN Verified 07/04/21 18:47 Active Medications: Current Medications Heparin Sodium/Sodium Chloride () 25,000 unit in 250 mls @ 0 mls/hr IVCONT .Q0M [facility]; Protocol Last Admin: 11/26/21 20:15 Dose: 12 units/kg/hr, 9.91 mls/hr Pharmacy Consult (Consult Rx Perform Med Rec) 1 each MISCELLANE ONCE PRN PRN Reason: Consult order Home Medications Medication Instructions Recorded Confirmed Last Taken Type buspirone 5 mg tablet 7.5 mg PO BID 07/04/21 11/26/21 07/04/21 08:00 History clonazepam 0.5 mg tablet 0.5 mg PO BID PRN Anxiety 07/04/21 11/26/21 07/04/21 08:00 History dextroamphetamine-amphetamine ER 40 mg PO DAILY 07/04/21 11/26/21 07/04/21 08:00 History 20 mg 24hr capsule,extend release dulaglutide 1.5 mg/0.5 mL 0.5 ml subcut QWEEK 07/04/21 11/26/21 07/01/21 History subcutaneous pen injector (Trulicity) gabapentin 300 mg capsule 900 mg PO BID 07/04/21 11/26/21 07/04/21 08:00 History insulin lispro 100 unit/mL 135 unit subcut DAILY 07/04/21 11/26/21 07/04/21 1 4:00 History subcutaneous solution (Humalog U-100 Insulin) metformin 500 mg tablet 3,000 mg PO BID 07/04/21 11/26/21 07/04/21 08:00 History metoclopramide HCl 10 mg tablet 10 mg PO BID 07/04/21 11/26/21 07/04/21 08:00 History ondansetron HCl 4 mg tablet 4 mg PO DIRECTED PRN Nausea 07/04/21 11/26/21 07/04/21 07:30 History ibuprofen 800 mg tablet 800 mg PO Q6H PRN Pain 11/26/21 11/26/21 Unknown History omeprazole 20 mg tablet,delayed 20 mg PO BID 11/26/21 11/26/21 Unknown History release Physical Exam Vital Signs and Narrative: Vital Signs: Last Vital Signs Temp 98.4 F 11/26/21 16:17 Pulse 100 11/26/21 18:16 Resp 16 11/26/21 18:16 BP 166/79 H 11/26/21 18:16 Pulse Ox 98 11/26/21 18:16 O2 Del Method 11/26/21 18:16 BMI result Body Mass Index 28.5 Const: General: cooperative and no acute distress Wade entation/consciousness: patient oriented x3 Eyes: General: appearance normal, both eyes and all related structures Resp: Effort & Inspection: normal respiratory effort Auscultation: clear to auscultation bilaterally Cardio: Rate: regular rate Rhythm: regular rhythm GI: Palpation (GI): Soft to palpation Auscultation: normal bowel sounds Skin: General skin exam: no rashes or lesions noted Neuro: General: patient oriented x3 Cognition (Neuro): normal cognition Extrem: General: Yes normal to inspection and Yes no pedal edema Results Labs CBC and Chem 7: 11/26/21 19:22 11/26/21 17:27 Labs: Laboratory Results - last 24 hr 11/26/21 11/26/21 11/26/21 17:26 17:27 17:27 MCV MCH MCHC RDW Plt Count MPV Immature Gran % (Auto) Neut % (Auto) Lymph % (Auto) [place] % (Auto) Eos % (Auto) Baso % (Auto) Lymph # (Auto) [place] # (Auto) Eos # (Auto) Baso # (Auto) Abs Immat Gran (auto) Absolute Neuts (auto) Absolute Nucleated RBC Nucleated RBC % (auto) PT INR aPTT Heparin Protocol VBG pH VBG pCO2 VBG pO2 VBG HCO3 VBG O2 Saturation VBG Base Excess Anion Gap 15 Estim Creat Clear Calc 91.2 Estimated GFR > 60 Random Glucose 335 H Lactic Acid 1.7 Calcium 8.5 D Magnesium 1.6 Total Bilirubin 0.7 AST 23 ALT 29 Alkaline Phosphatase 116 Troponin I High Sens 762.5 H* D Total Protein 6.7 D Albumin 4.0 Urine Color Urine Appearance Urine pH Ur Specific [place] Urine Protein Urine Glucose (UA) Urine Ketones Urine Blood Urine Nitrite Ur Leukocyte Esterase Urine RBC Urine WBC Ur Squamous Epith Cells Urine Bacteria COVID-19 ([facility]QUISE) COVID-19 Clin Com 11/26/21 11/26/21 11/26/21 17:32 17:39 17:40 MCV 81.9 MCH 27.8 MCHC 34.0 RDW 12.5 Plt Count 236 MPV 9.6 Immature Gran % (Auto) 0.3 Neut % (Auto) 85.6 H Lymph % (Auto) 8.3 L [place] % (Auto) 5.6 Eos % (Auto) 0.0 Baso % (Auto) 0.2 Lymph # (Auto) 1.0 L [place] # (Auto) 0.7 Eos # (Auto) 0.0 Baso # (Auto) 0.0 Abs Immat Gran (auto) 0.04 H Absolute Neuts (auto) 10.3 H Absolute Nucleated RBC 0.000 Nucleated RBC % (auto) 0.0 PT INR aPTT Heparin Protocol VBG pH 7.47 H VBG pCO2 29 VBG pO2 153 VBG HCO3 21 L VBG O2 Saturation 99.0 VBG Base Excess -0.4 Anion Gap Estim Creat Clear Calc Estimated GFR Random Glucose Lactic Acid Calcium Magnesium Total Bilirubin AST ALT Alkaline Phosphatase Troponin I High Sens Total Protein Albumin Urine Color Urine Appearance Urine pH Ur Specific [place] Urine Protein Urine Glucose (UA) Urine Ketones Urine Blood Urine Nitrite Ur Leukocyte Esterase Urine RBC Urine WBC Ur Squamous Epith Cells Urine Bacteria COVID-19 ([facility]QUISE) Negative COVID-19 Clin Com 0 11/26/21 11/26/21 11/26/21 17:41 19:21 19:22 MCV 82.2 MCH 28.0 MCHC 34.1 RDW 12.5 Plt Count 250 MPV 9.4 Immature Gran % (Auto) Neut % (Auto) Lymph % (Auto) [place] % (Auto) Eos % (Auto) Baso % (Auto) Lymph # (Auto) [place] # (Auto) Eos # (Auto) Baso # (Auto) Abs Immat Gran (auto) Absolute Neuts (auto) Absolute Nucleated RBC 0.000 Nucleated RBC % (auto) 0.0 PT INR aPTT Heparin Protocol VBG pH VBG pCO2 VBG pO2 VBG HCO3 VBG O2 Saturation VBG Base Excess Anion Gap Estim Creat Clear Calc Estimated GFR Random Glucose Lactic Acid Calcium Magnesium Total Bilirubin AST ALT Alkaline Phosphatase Troponin I High Sens 911.6 H* Total Protein Albumin Urine Color YELLOW Urine Appearance CLEAR Urine pH 6.5 Ur Specific [place] 1.010 Urine Protein 1+ H Urine Glucose (UA) >=1000 H Urine Ketones 15 Urine Blood NEG Urine Nitrite NEG Ur Leukocyte Esterase NEG Urine RBC 0 Urine WBC 0 Ur Squamous Epith Cells NONE Urine Bacteria TRACE COVID-19 ([facility]) COVID-19 Clin Com 11/26/21 19:22 MCV MCH MCHC RDW Plt Count MPV Immature Gran % (Auto) Neut % (Auto) Lymph % (Auto) [place] % (Auto) Eos % (Auto) Baso % (Auto) Lymph # (Auto) [place] # (Auto) Eos # (Auto) Baso # (Auto) Abs Immat Gran (auto) Absolute Neuts (auto) Absolute Nucleated RBC Nucleated RBC % (auto) PT 11.3 INR 1.0 aPTT Heparin Protocol 92.3 H VBG pH VBG pCO2 VBG pO2 VBG HCO3 VBG O2 Saturation VBG Base Excess Anion Gap Estim Creat Clear Calc Estimated GFR Random Glucose Lactic Acid Calcium Magnesium Total Bilirubin AST ALT Alkaline Phosphatase Troponin I High Sens Total Protein Albumin Urine Color Urine Appearance Urine pH Ur Specific [place] Urine Protein Urine Glucose (UA) Urine Ketones Urine Blood Urine Nitrite Ur Leukocyte Esterase Urine RBC Urine WBC Ur Squamous Epith Cells Urine Bacteria COVID-19 ([facility]) COVID-19 Clin Com Imaging Radiologist's Impressions: Impressions Chest X-Ray 11/26/21 19:14 IMPRESSION: Unremarkable examination. Assessment and Plan (1) Acute non-ST elevation myocardial infarction (NSTEMI): Status: Acute Plan 66-year-old male with past medical history of diabetes presents to the hospital with nonspecific symptoms found to have elevated troponin # NSTEMI - elevated troponin - nonspecific ST T wave changes - risk factors including diabetes and family history - HEART score of 6 - patient started on heparin drip, - aspirin and metoprolol started - echocardiogram in the morning - cardiology consulted # diabetes - low-dose sliding scale insulin - diabetic diet # neuropathy - continue home medications DVT prophylaxis: Heparin ggt Given the patient's NSTEMI, elevated heart score patient will require an inpatient admission with a minimum 2 night hospital stay for further management and evaluation. This cannot be done which cannot be done in any other acute setting Quality Stroke Does the patient have a stroke diagnosis?: No VTE Prior VTE?: No VTE Risk Level:: Medical - moderate - high VTE Device Contraindication: Treatment Not Indicated VTE Drug Contraindication: N/A - Med Ordered
[2021-11-26 22:00] VITALS: BP 145/75; PULSE 95; RESP 16; O2SAT 95
[2021-11-27 01:02] VITALS: BP 119/59; PULSE 92; RESP 12; TEMP 36.6; O2SAT 98
[2021-11-27 01:09] LABS: Glucose, Whole Blood 308 mg/dL (60-115)
[2021-11-27 02:18] LABS: Partial Thromboplastin Time 33.6 SEC (24.1-38.0)
[2021-11-27] MEDS: Heparin Sodium,Porcine 5,000 UNIT/ML VIAL 6600 UNIT IVPUSH (03:50)
[2021-11-27 04:13] LABS: MANUAL DIFF FLAG NO
[2021-11-27 04:17] LABS: Basophils Percent Auto 0.3 % (0-2); Eosinophils Absolute Auto 0.1 X10*3/uL (0.0-0.4); Eosinophils Percent Auto 0.6 % (0-4); Hematocrit 43.4 % (42.0-52.0); Hemoglobin 14.7 g/dl (14.0-18.0); Imm Gran Abs Auto 0.03 X10*3/uL (0.00-0.03); Imm Gran Pct Auto 0.3 % (0.0-0.4); Lymphocytes Absolute Auto 2.7 X10*3/uL (1.2-4.9); Lymphocytes Percent Auto 27.1 % (20-40); Mean Corpuscular HGB Conc 33.9 g/dl (31.0-36.0); Mean Corpuscular Hemoglobin 27.9 pg (27.0-33.0); Mean Corpuscular Volume 82.4 fL (80.0-98.0); Mean Platelet Volume 9.6 fL (9.4-12.4); Monocytes Absolute Auto 0.9 X10*3/uL (0.1-1.2); Monocytes Percent Auto 9.2 % (2-11); Neutrophils Absolute Auto 6.2 x10*3/uL (2.0-8.3); Neutrophils Percent Auto 62.5 % (45-73); Platelet Count 226 X10*3/uL (160-400); Red Blood Count 5.27 X10*6/uL (4.60-5.80); Red Cell Distribution Width 12.6 % (11.0-16.0); White Blood Count 9.9 X10*3/uL (4.8-10.8)
[2021-11-27 04:29] LABS: Prothrombin Time 11.9 SEC (10.0-13.1)
[2021-11-27 04:39] LABS: Anion Gap 13 (12-20); Blood Urea Nitrogen 15 mg/dL (9-16); Calcium 8.6 mg/dL (8.4-10.2); Carbon Dioxide 27 mmol/L (22-29); Chloride 100 mmol/L (96-108); Creatinine Clr Calc Pharmacy 75.7; Estimated Glomerular Filt Rate > 60; Glucose Random 337 mg/dL (60-115); Potassium 3.7 mmol/L (3.3-5.1); Sodium 136 mmol/L (135-145)
[2021-11-27 06:39] VITALS: BP 106/56; PULSE 70; RESP 16; O2SAT 96
[2021-11-27 06:59] VITALS: BP 118/66; PULSE 69; RESP 10; TEMP 36.6; O2SAT 98
[2021-11-27 06:59] LABS: Glucose, Whole Blood 286 mg/dL (60-115)
--- NOTE | 2021-11-27 07:00 | CA_ITS ---
Transthoracic Echocardiogram Patient (Last, First, Middle): Jamal Lopez H Gender: Male Date of : 1955 Age: 66 Procedure Date: 11/27/2021 Procedure Type: Transthoracic Echocardiogram Location: ER Height: 170.18 cm Weight: 82.56 kg BSA: 1.94 m2 Heart Rate: bpm BP: 118 / 66 mmHg End Matcher: MORRO Referring MD: Shyanne Franks MD Symptoms: NSTEMI Study Quality: Adequate ECG Rhythm: Sinus Conclusions: - The left ventricular systolic function is normal. The calculated ejection fraction is 58% by biplane method. - The basal inferior and basal inferoseptal segments are hypokinetic. - No obvious valvular pathology seen on this study. Findings Left Ventricle Normal left ventricular cavity size. There is normal left ventricular wall thickness. The left ventricular systolic function is normal. The calculated ejection fraction is 58% by biplane method. There is no evidence of regional wall motion abnormalities. Diastolic function is normal for age. LV peak GLS -13.7%. Wall Motion Rest Echo Findings The basal inferior and basal inferoseptal segments are hypokinetic. Right Ventricle Normal right ventricular cavity size and systolic function. Atria Both atria are normal in size. Aortic Valve There is a normal trileaflet aortic valve. There is no aortic valve stenosis. There is no aortic valve regurgitation. Mitral Valve There is mild mitral annular calcification. There is no mitral valve regurgitation. There is no mitral valve stenosis. Pulmonic Valve The pulmonic valve is likely normal. Tricuspid Valve There is no tricuspid valve regurgitation. The pulmonary artery systolic pressure is normal. Great Vessels The aortic annulus, sinuses of valsalva, and asc aorta are normal in size. Small plaque is seen in the sino tubular ridge. Venous The inferior vena cava is normal in size and collapses less than 50% with inspiration. Pericardium/Pleural There is no evidence of pericardial effusion. Prior Study Comparison No prior study available for comparison. Recommendations, Care & Conclusions No obvious valvular pathology seen on this study. Measurements 2D Linear Measurements IVSd: 0.99 0.6-0.9/0.6-1.0 cm LVIDd: 4.27 3.9-5.3/4.2-5.9 cm LVIDd Index: 2.20 2.4-3.2/2.2-3.1 cm/m2 LVIDs: 2.90 2.0-3.6 cm LVPWd: 1.00 0.7-1.1 cm LA Diam: 3.60 2.7-3.8/3.0-4.0 cm LAIDs Index: 1.86 1.5-2.3 cm/m2 LV Mass: 173.91 67-162/88-224 g LV Mass Index: 89.65 43-95/49-115 g/m2 LVOT Diam: 2.00 3.0+(-)1.3 cm 2D Systolic Function EF 4C: 58.80 >55% EF 2C: 56.30 >55% EF BiP: 57.50 >55% Mitral Valve MV Pk E: 0.82 MV PK A: 0.69 MV Decel Time: 175.00 E/A: 1.20 E'Lateral: 9.46 E'Medial: 5.22 E/E' Med: 15.60 E/E' Lat: 8.60 PHT: 51.00 MVA PHT: 4.31 Decel [place]: 4.65 Aortic Valve AoV Pk Rod: 1.21 AoV Mn Rod: 0.85 AoV VTI: 0.24 AoV Pk Grad: 6.00 Aov Mn Grad: 3.00 TINY Cont.VTI: 2.14 LVOT LVOT Pk Rod: 0.81 LVOT Mn Rod: 0.56 LVOT VTI: 0.17 LVOT Pk Grad: 3.00 LVOT Mn Grad: 1.00 LVOT Diam: 2.00 LVOT Area: 3.14 Diastolic Function MV Pk E: 0.82 MV Pk A: 0.69 E/A: 1.20 E'Medial: 5.22 E/E' Med: 15.60 E' Laterial: 9.46 E/E' Lat: 8.60 Right Ventricle TAPSE (mm): 20.80 TVS' Rod: 11.40 Tricuspid Valve RA Press: 8.00 Great Vessels Aorta Sinus of Valsalva: 3.33 2.0-3.[address] [place]: 2.20 1.7-3.4 cm Updated in Other Vendor System with Status of Final Hardik Aranda MD electronically signed on 11/27/2021 11:18:09 AM with status of Final
[2021-11-27 07:05] LABS: Glucose, Whole Blood 310 mg/dL (60-115)
[2021-11-27 08:43] LABS: Cholesterol 206 mg/dL; HDL Cholesterol 27 mg/dL; Triglycerides 450 mg/dL
--- NOTE | 2021-11-27 08:43 | MHC.CM.PN ---
Patient lives in a house with his and he required no services nor DME [employer]TER. Home self care is the goal and CM has initiated and will follow for dc planning. Patient received J&J/Covid vax and booster X1 and his PCP is Dr. Balbir Farfan.
--- NOTE | 2021-11-27 09:45 | P.CONCA_ITS ---
History of Present Illness History of Present Illness Date of Service: 11/27/21 Chief complaint: DOES NOT FEEL WELL,WEAK,CRAMPS Narrative: This is a cardiology consultation regarding elevated troponins. Patient denies any history of coronary artery disease or myocardial infarction or car diomyopathy or in fact any other cardiac issues. He states that he is fairly active without any major limitations. He has a history of type 2 diabetes for the last 20+ years. He is on insulin. For the last couple of days or so, he has not been feeling good. He did have foot outside at [employer]. Then other GI symptoms like nausea, constipation, abdominal cramping, diaphoresis for the last day or so. No clear anginal-type symptoms at any point. Subsequently, he was seen in the ER. Elevated troponins. Continues to deny any chest pain symptoms or in fact anything cardiac related. Otherwise fairly comfortable. We have been asked to see him for further evaluation. Review of Systems Review of Systems: Yes all other systems are reviewed and are negative Constitutional: Constitutional: Reports as per HPI, Reports fatigue and Reports malaise Eyes: Eyes: Reports as per HPI ENT: Reports as per HPI Cardiovascular: Cardiovascular: Reports as per HPI, Denies acrocyanosis, Denies cool extremities, Denies chest pain, Denies leg edema, Denies lightheadedness, Denies palpitations and Denies dyspnea Respiratory: Respiratory: Reports as per HPI, Reports no additional respiratory complaints and Denies dyspnea Gastrointestinal: Gastrointestinal: Reports as per HPI, Reports no additional gastrointestinal complaints, Reports abdominal pain, Reports GI cramping and Reports nausea Genitourinary: Genitourinary: Reports no additional male genitourinary co mplaints and Reports as per HPI Musculoskeletal: Musculoskeletal: Reports no additional musculoskeletal complaints and Reports as per HPI Integumentary/Breasts: Skin/Breast: Reports system reviewed and no additional complaints, except as docu Neurologic: Reports system reviewed and no additional complaints, except as documented and Reports as per HPI Psychiatric: Psychiatric: Reports no additional psychiatric complaints and Reports as per HPI Endocrine: Endocrine: Reports no additional endocrine complaints, Reports as per HPI, Reports fatigue and Denies palpitations Hematologic/Lymphatic: Hematologic/Lymphatic: Reports no additional hematologic/lymphatic complaints and Reports as per HPI Allergic/Immunologic: Allergic/Immunologic: Reports no additional allergic/immunologic complaints and Reports as per HPI FOR[facility]LY [facility], [facility] Past Medical History Medical History (Updated 11/27/21 @ 09:47 by Hardik Aranda MD) Gastroparesis Neuropathy Type 2 diabetes mellitus with unspecified complications Family History Family History (Updated 11/27/21 @ 02:34 by Shyanne Franks MD) Mother CAD (coronary artery disease) Brother CAD (coronary artery disease) Surgical History Surgical History (Updated 11/27/21 @ 02:34 by Shyanne Franks MD) H/O eye surgery Social History Social History Alcohol intake: current Patient Tobacco Use Status: Never used Tobacco Use of substances other than those prescribed or required for medical reasons: No Advance Directives: No Advance Directives Information Provided: No service: No Current occupational status: employed Meds Allergies Allergy/AdvReac Type Severity Reaction Status Date / Time liraglutide [From VICTOZA] Allergy Unknown UNKNOWN Verified 07/04/21 18:47 Active Medications: Current Medications Acetaminophen (Acetaminophen 325 Mg Tablet) 650 mg PO Q6H PRN PRN Reason: Pain, Mild (Pain Scale 1-3) Aspirin (Aspirin Enteric Coated 81 Mg Tablet.Dr) 81 mg PO DAILY ALEX Atorvastatin Calcium (Atorvastatin Calcium 40 Mg Tablet) 40 mg PO DAILY ALEX Buspirone HCl (Buspirone Hcl 5 Mg Tablet) 7.5 mg PO BID ALEX Clonazepam (Clonazepam 0.5 Mg Tablet) 0.5 mg PO BID PRN PRN Reason: Anxiety Dextrose (Dextrose 50 % 25 Gm/50 Ml Syringe) 25 gm IVPUSH Q15M PRN; Protocol PRN Reason: per Hypoglycemia Standing Ord. Docusate Sodium (Docusate Sodium 100 Mg Capsule) 100 mg PO DAILY PRN PRN Reason: Constipation Gabapentin (Gabapentin 300 Mg Capsule) 900 mg PO BID [facility] Glucose (Glucose Gel 15 Gm Gel..Gram.) 15 gm PO Q15M PRN; Protocol PRN Reason: per Hypoglycemia Standing Ord. Heparin Sodium/Sodium Chloride () 25,000 unit in 250 mls @ 0 mls/hr IVCONT .Q0M ALEX; Protocol Last Titration: 11/27/21 03:53 Dose: 16 units/kg/hr, 13.21 mls/hr Insulin Human Lispro (Insulin Lispro 100 Unit/Ml 3 Ml Vial) 0 unit SUBCUT QIDACHS [facility]; Protocol Insulin Human Lispro (Insulin Lispro 100 Unit/Ml 3 Ml Vial) 135 unit SUBCUT DAILY [facility] Metoprolol Tartrate (Metoprolol Tartrate 12.5 Mg Halftab) 12.5 mg PO BID [facility]; Protocol Omeprazole (Omeprazole 20 Mg Capsule.Dr) 20 mg PO BID [facility] Ondansetron HCl (Ondansetron Hcl 4 Mg/2 Ml Vial) 4 mg IVPUSH Q8H PRN PRN Reason: Nausea and Vomiting Pharmacy Consult (Consult Rx Perform Med Rec) 1 each MISCELLANE ONCE PRN PRN Reason: Consult order Sodium Chloride (0.9 % Sodium Chloride Flush 3 Ml Syringe) [facility] Last Admin: 11/27/21 00:28 Dose: Not Given Home Medications Medication Instructions Recorded Confirmed Last Taken Type buspirone 5 mg tablet 7.5 mg PO BID 07/04/21 11/26/21 07/04/21 08:00 History clonazepam 0.5 mg tablet 0.5 mg PO BID PRN Anxiety 07/04/21 11/26/21 07/04/21 08:00 History dextroamphetamine-amphetamine ER 40 mg PO DAILY 07/04/21 11/26/21 07/04/21 08:00 History 20 mg 24hr capsule,extend release dulaglutide 1.5 mg/0.5 mL 0.5 ml subcut QWEEK 07/04/21 11/26/21 07/01/21 History subcutaneous pen injector (Trulicity) gabapentin 300 mg capsule 900 mg PO BID 07/04/21 11/26/21 07/04/21 08:00 History insulin lispro 100 unit/mL 135 unit subcut DAILY 07/04/21 11/26/21 07/04/21 14:00 History subcutaneous solution (Humalog U-100 Insulin) metformin 500 mg tablet 3,000 mg PO BID 07/04/21 11/26/21 07/04/21 08:00 History metoclopramide HCl 10 mg tablet 10 mg PO BID 07/04/21 11/26/21 07/04/21 08:00 History ondansetron HCl 4 mg tablet 4 mg PO DIRECTED PRN Nausea 07/04/21 11/26/21 07/04/21 07:30 History ibuprofen 800 mg tablet 800 mg PO Q6H PRN Pain 11/26/21 11/26/21 Unknown History omeprazole 20 mg tablet,delayed 20 mg PO BID 11/26/21 11/26/21 Unknown History release Physical Exam Vital Signs: Vital Signs: Last Vital Signs Temp 97.8 F 11/27/21 06:59 Pulse 69 11/27/21 06:59 Resp 10 L 11/27/21 06:59 BP 118/66 11/27/21 06:59 Pulse Ox 98 11/27/21 06:59 O2 Del Method 11/27/21 06:59 O2 Flow Rate 2.5 11/27/21 06:59 BMI result Body Mass Index 28.5 Const: General: comfortable and no acute distress Orientation/consciousness: patient oriented x3 HEENT: Other: Unremarkable Head: Yes normal to inspection Neck: Neck: Yes normal visual inspection Chest: Chest palpation & inspection: normal inspection of the chest Resp: Auscultation: clear to auscultation bilaterally Cardio: Palpation: normal PMI Heart sounds: S1 normal heart sound present, S2 normal heart sound present, no gallops, no murmurs and no rubs GI: Palpation (GI): Soft to palpation Back/Spine/Pelvis: Other: unremarkable Skin: General skin exam: no rashes or lesions noted Neuro: General: patient oriented x3 Extrem: General: Yes normal to inspection Psych: Mental Status: mental status grossly normal Objective Labs and Meds Result diagrams: 11/27/21 04:01 11/27/21 04:01 Lab results: Laboratory Results - last 24 hr 11/26/21 11/26/21 11/26/21 16:19 17:26 17:27 WBC RBC Hgb Hct MCV MCH MCHC RDW Plt Count MPV Immature Gran % (Auto) Neut % (Auto) Lymph % (Auto) [place] % (Auto) Eos % (Auto) Baso % (Auto) Lymph # (Auto) [place] # (Auto) Eos # (Auto) Baso # (Auto) Abs Immat Gran (auto) Absolute Neuts (auto) Absolute Nucleated RBC Nucleated RBC % (auto) PT INR APTT aPTT Heparin Protocol VBG pH VBG pCO2 VBG pO2 VBG HCO3 VBG O2 Saturation VBG Base Excess Sodium 135 Potassium 3.7 D Chloride 99 Carbon Dioxide 25 Anion Gap 15 BUN 11 Creatinine 0.83 Estim Creat Clear Calc 91.2 Estimated GFR > 60 POC Glucose 310 H Random Glucose 335 H Lactic Acid 1.7 Calcium 8.5 D Magnesium 1.6 Total Bilirubin 0.7 AST 23 ALT 29 Alkaline Phosphatase 116 Troponin I High Sens Total Protein 6.7 D Albumin 4.0 Triglycerides Cholesterol LDL Cholesterol, Calc HDL Cholesterol Urine Color Urine Appearance Urine pH Ur Specific [place] Urine Protein Urine Glucose (UA) Urine Ketones Urine Blood Urine Nitrite Ur Leukocyte Esterase Urine RBC Urine WBC Ur Squamous Epith Cells Urine Bacteria COVID-19 ([facility]QUISE) COVID-19 Clin Com 11/26/21 11/26/21 11/26/21 17:27 17:32 17:39 WBC 12.0 H RBC 5.75 Hgb 16.0 Hct 47.1 MCV 81.9 MCH 27.8 MCHC 34.0 RDW 12.5 Plt Count 236 MPV 9.6 Immature Gran % (Auto) 0.3 Neut % (Auto) 85.6 H Lymph % (Auto) 8.3 L [place] % (Auto) 5.6 Eos % (Auto) 0.0 Baso % (Auto) 0.2 Lymph # (Auto) 1.0 L [place] # (Auto) 0.7 Eos # (Auto) 0.0 Baso # (Auto) 0.0 Abs Immat Gran (auto) 0.04 H Absolute Neuts (auto) 10.3 H Absolute Nucleated RBC 0.000 Nucleated RBC % (auto) 0.0 PT INR APTT aPTT Heparin Protocol VBG pH 7.47 H VBG pCO2 29 VBG pO2 153 VBG HCO3 21 L VBG O2 Saturation 99.0 VBG Base Excess -0.4 Sodium Potassium Chloride Carbon Dioxide Anion Gap BUN Creatinine Estim Creat Clear Calc Estimated GFR POC Glucose Random Glucose Lactic Acid Calcium Magnesium Total Bilirubin AST ALT Alkaline Phosphatase Troponin I High Sens 762.5 H* D Total Protein Albumin Triglycerides Cholesterol LDL Cholesterol, Calc HDL Cholesterol Urine Color Urine Appearance Urine pH Ur Specific [place] Urine Protein Urine Glucose (UA) Urine Ketones Urine Blood Urine Nitrite Ur Leukocyte Esterase Urine RBC Urine WBC Ur Squamous Epith Cells Urine Bacteria COVID-19 (MARQUISE) COVID-19 Clin Com 11/26/21 11/26/21 11/26/21 17:40 17:41 19:21 WBC RBC Hgb Hct MCV MCH MCHC RDW Plt Count MPV Immature Gran % (Auto) Neut % (Auto) Lymph % (Auto) [place] % (Auto) Eos % (Auto) Baso % (Auto) Lymph # (Auto) [place] # (Auto) Eos # (Auto) Baso # (Auto) Abs Immat Gran (auto) Absolute Neuts (auto) Absolute Nucleated RBC Nucleated RBC % (auto) PT INR APTT aPTT Heparin Protocol VBG pH VBG pCO2 VBG pO2 VBG HCO3 VBG O2 Saturation VBG Base Excess Sodium Potassium Chloride Carbon Dioxide Anion Gap BUN Creatinine Estim Creat Clear Calc Estimated GFR POC Glucose Random Glucose Lactic Acid Calcium Magnesium Total Bilirubin AST ALT Alkaline Phosphatase Troponin I High Sens 911.6 H* Total Protein Albumin Triglycerides Cholesterol LDL Cholesterol, Calc HDL Cholesterol Urine Color YELLOW Urine Appearance CLEAR Urine pH 6.5 Ur Specific [place] 1.010 Urine Protein 1+ H Urine Glucose (UA) >=1000 H Urine Ketones 15 Urine Blood NEG Urine Nitrite NEG Ur Leukocyte Esterase NEG Urine RBC 0 Urine WBC 0 Ur Squamous Epith Cells NONE Urine Bacteria TRACE COVID-19 ([facility]QUISE) Negative COVID-19 Clin Com 0 11/26/21 11/26/21 11/27/21 19:22 19:22 01:04 WBC 13.7 H RBC 5.96 H Hgb 16.7 Hct 49.0 MCV 82.2 MCH 28.0 MCHC 34.1 RDW 12.5 Plt Count 250 MPV 9.4 Immature Gran % (Auto) Neut % (Auto) Lymph % (Auto) [place] % (Auto) Eos % (Auto) Baso % (Auto) Lymph # (Auto) [place] # (Auto) Eos # (Auto) Baso # (Auto) Abs Immat Gran (auto) Absolute Neuts (auto) Absolute Nucleated RBC 0.000 Nucleated RBC % (auto) 0.0 PT 11.3 INR 1.0 APTT aPTT Heparin Protocol 92.3 H VBG pH VBG pCO2 VBG pO2 VBG HCO3 VBG O2 Saturation VBG Base Excess Sodium Potassium Chloride Carbon Dioxide Anion Gap BUN Creatinine Estim Creat Clear Calc Estimated GFR POC Glucose 308 H Random Glucose Lactic Acid Calcium Magnesium Total Bilirubin AST ALT Alkaline Phosphatase Troponin I High Sens Total Protein Albumin Triglycerides Cholesterol LDL Cholesterol, Calc HDL Cholesterol Urine Color Urine Appearance Urine pH Ur Specific [place] Urine Protein Urine Glucose (UA) Urine Ketones Urine Blood Urine Nitrite Ur Leukocyte Esterase Urine RBC Urine WBC Ur Squamous Epith Cells Urine Bacteria COVID-19 ([facility]QUISE) COVID-19 Clin Com 11/27/21 11/27/21 11/27/21 02:04 04:01 04:01 WBC 9.9 RBC 5.27 Hgb 14.7 Hct 43.4 MCV 82.4 MCH 27.9 MCHC 33.9 RDW 12.6 Plt Count 226 MPV 9.6 Immature Gran % (Auto) 0.3 Neut % (Auto) 62.5 Lymph % (Auto) 27.1 [place] % (Auto) 9.2 Eos % (Auto) 0.6 Baso % (Auto) 0.3 Lymph # (Auto) 2.7 [place] # (Auto) 0.9 Eos # (Auto) 0.1 Baso # (Auto) 0.0 Abs Immat Gran (auto) 0.03 Absolute Neuts (auto) 6.2 Absolute Nucleated RBC 0.000 Nucleated RBC % (auto) 0.0 PT 11.9 INR 1.0 APTT 33.6 aPTT Heparin Protocol VBG pH VBG pCO2 VBG pO2 VBG HCO3 VBG O2 Saturation VBG Base Excess Sodium Potassium Chloride Carbon Dioxide Anion Gap BUN Creatinine Estim Creat Clear Calc Estimated GFR POC Glucose Random Glucose Lactic Acid Calcium Magnesium Total Bilirubin AST ALT Alkaline Phosphatase Troponin I High Sens Total Protein Albumin Triglycerides Cholesterol LDL Cholesterol, Calc HDL Cholesterol Urine Color Urine Appearance Urine pH Ur Specific [place] Urine Protein Urine Glucose (UA) Urine Ketones Urine Blood Urine Nitrite Ur Leukocyte Esterase Urine RBC Urine WBC Ur Squamous Epith Cells Urine Bacteria COVID-19 ([facility]QUISE) COVID-19 Clin Com 11/27/21 11/27/21 04:01 06:55 WBC RBC Hgb Hct MCV MCH MCHC RDW Plt Count MPV Immature Gran % (Auto) Neut % (Auto) Lymph % (Auto) [place] % (Auto) Eos % (Auto) Baso % (Auto) Lymph # (Auto) [place] # (Auto) Eos # (Auto) Baso # (Auto) Abs Immat Gran (auto) Absolute Neuts (auto) Absolute Nucleated RBC Nucleated RBC % (auto) PT INR APTT aPTT Heparin Protocol VBG pH VBG pCO2 VBG pO2 VBG HCO3 VBG O2 Saturation VBG Base Excess Sodium 136 Potassium 3.7 Chloride 100 Carbon Dioxide 27 Anion Gap 13 BUN 15 Creatinine 1.00 Estim Creat Clear Calc 75.7 Estimated GFR > 60 POC Glucose 286 H Random Glucose 337 H Lactic Acid Calcium 8.6 Magnesium Total Bilirubin AST ALT Alkaline Phosphatase Troponin I High Sens Total Protein Albumin Triglycerides 450 Cholesterol 206 LDL Cholesterol, Calc TNP HDL Cholesterol 27 Urine Color Urine Appearance Urine pH Ur Specific [place] Urine Protein Urine Glucose (UA) Urine Ketones Urine Blood Urine Nitrite Ur Leukocyte Esterase Urine RBC Urine WBC Ur Squamous Epith Cells Urine Bacteria COVID-19 ([facility]QU[facility]) COVID-19 Clin Com ECG Interpretation: EKG with sinus tachycardia, 104/Min; inferior infarct of undetermined age with trivial ST elevation; old anteroseptal infarct and anterolateral ST depression. Changes noted compared to prior EKG from 2020. Imaging Radiologist's impression: Impressions Chest X-Ray 11/26/21 19:14 IMPRESSION: Unremarkable examination. Assessment and Plan (1) Acute non-ST elevation myocardial infarction (NSTEMI): Status: Acute Plan High sensitivity troponins are some 762 followed by 911. In 2020, 4.5. EKG, as discussed about shows probable inferior infarct of undetermined age and anterolateral ST depression. Clinically, he has got no chest pain at this time or in fact any other cardiac symptoms. Continue IV heparin drip. Continue aspirin, beta-blockers. Statins. Discussed about cardiac catheterization with patient and he is agreeable. Will transfer to [facility] for the same. Procedures Date of Service Date of Service: 11/27/21
[2021-11-27 10:09] VITALS: BP 123/54; PULSE 80; RESP 16; O2SAT 99
[2021-11-27 10:37] LABS: PTT Heparin Drip 197.9 SEC (53-77.9)
[2021-11-27] MEDS: busPIRone HCl 5 MG TABLET 7.5 MG PO (10:44)
[2021-11-27] MEDS: Aspirin Enteric Coated 81 MG TABLET.DR PO (10:44)
[2021-11-27] MEDS: Atorvastatin Calcium 40 MG TABLET PO (10:45)
[2021-11-27] MEDS: Gabapentin 300 MG CAPSULE 900 MG PO (10:45)
[2021-11-27] MEDS: Omeprazole 20 MG CAPSULE.DR PO (10:46)
[2021-11-27] MEDS: Metoprolol Tartrate 12.5 MG HALFTAB PO (10:46)
[2021-11-27] MEDS: Insulin Lispro 100 UNIT/ML 3 ML VIAL 135 UNIT SUBCUT (10:46)
--- NOTE | 2021-11-27 10:52 | PC.NURSE ---
stopped heparin drip as PTT was 197.9, redraw needed at 11:40am. denies any CP some nausea only. awaiting transport for [facility] for a angio
--- NOTE | 2021-11-27 11:05 | MHC.CM.PN ---
Per ROUNDS discussion, Patient will be transferred to [facility] today.
[2021-11-27 11:55] LABS: PTT Heparin Drip 111.7 SEC (53-77.9)
--- NOTE | 2021-11-27 12:09 | P.DS_ITS ---
DS: Providers Provider Date of Service: 11/27/21 Date of admission: 11/26/21 20:50 Primary care physician: Balbir Farfan MD Consults: 11/26/21 20:42 Consult to Cardiology Routine Consulting Provider: Hardik Aranda Reason for consultation: NSTEMI Has provider been notified: Yes DS: Diagnosis Discharge Diagnosis (1) Acute non-ST elevation myocardial infarction (NSTEMI): Status: Acute DS: Summary Hospital Course Hospital Course: History of presenting illness Chief Complaint: not feeling well 66-year-old with longstanding history of diabetes and diabetic neuropathy who comes into the hospital with multiple complaints.? Patient reports that the night before he had dinner at [employer] had a soup and sandwich got home, felt cramps in his stomach, but could not use the bathroom.? In the morning when he woke up this same diffuse abdominal cramp continued, he reports that he had a lot of straining and finally followed by a BM which resolved the cramping but he noted significant diaphoresis and continued to feel unwell all day long and has significant diaphoresis throughout the day, felt nauseous with no vomiting, he denied having any chest pain, no palpitations, no shortness of breath, he reports no headache or change in vision, no diarrhea, no urinary symptoms and no lower extremity edema, 1 week prior to this patient was feeling unwell with epigastric discomfort and felt symptoms were related to gastroparesis,On arrival to the ED hemodynamically stable, labs were significant for WBC count of 13.7, hemoglobin 16.7, pH of 7.47, troponin of 760 to increase to 911, UA negative EKG showed trivial ST elevation in leads 1 and 2 and AVF, anterior lateral ST depression an old anterior septal infarction, case reviewed by Cardiology, and patient admitted to the intermediate care unit on IV heparin aspirin statin and beta-blockers Hospital course Acute inferior infarction Patient denies chest pain, no palpitation remains hemodynamically stable, continue IV heparin, aspirin, statin and beta blockers and echocardiogram showed EF 58%, with no evidence of regional wall motion abnormality diastolic function is normal for age, patient noted to have basal inferior and basal inferioseptal hypokinesis, lipid profile revealed an elevated triglycerides of 450, HDL cholesterol 27 , LDL test not performed due to high triglyceride will check directed LDL level, patient with multiple risk factors for coronary artery disease including hypertension hyperlipidemia and longstanding diabetes mellitus is being discharged to [facility] for cardiac catheterization. In regard to diabetes mellitus will continue diabetic diet insulin sliding scale and home dose of insulin, recommend is strict blood sugar monitoring. Continue gabapentin for peripheral neuropathy Left proximal internal carotid artery stenosis of 50-79% and elevated peak systolic velocity of both subclavian artery suggesting stenosis, carotid ultrasound was obtained since patient complained of lightheadedness with hyperextension of neck patient will need vascular surgery evaluation . Time Spent with Patient Time attestation: Total time spent providing and/or coordinating discharge services: Discharge coordination time: Greater than 30 minutes Quality: Safe Use of Opioids Does Pt have an Active Cancer Diagnosis on the Problem List?: No Quality: Stroke Does the patient have a stroke diagnosis?: No Physical Exam Vital Signs: Vital Signs: Last Vital Signs Temp 97.8 F 11/27/21 06:59 Pulse 80 11/27/21 10:09 Resp 16 11/27/21 10:09 BP 123/54 L 11/27/21 10:09 Pulse Ox 99 11/27/21 10:09 O2 Del Method 11/27/21 10:09 O2 Flow Rate 2.5 11/27/21 10:09 BMI result Body Mass Index 28.5 Const: Other: General awake alert times 3, in no acute distress. HEENT PERRLA,EOMI Neck supple no JVD. CVS regular rate rhythm, Respiratory lungs clear to auscultation, no respiratory distress, no wheeze, no rhonchi. Gastrointestinal abdomen soft, nontender, bowel sounds audible, no guarding , no rigidity. Extremities no edema. Neuro nonfocal Psych appropriate affect DS: Data Data Completed and Pending Labs on day of discharge: Laboratory Results - last 24 hr 11/26/21 11/26/21 11/26/21 16:19 17:26 17:27 WBC RBC Hgb Hct MCV MCH MCHC RDW Plt Count MPV Immature Gran % (Auto) Neut % (Auto) Lymph % (Auto) Geary % (Auto) Eos % (Auto) Baso % (Auto) Lymph # (Auto) Geary # (Auto) Eos # (Auto) Baso # (Auto) Abs Immat Gran (auto) Absolute Neuts (auto) Absolute Nucleated RBC Nucleated RBC % (auto) PT INR APTT aPTT Heparin Protocol VBG pH VBG pCO2 VBG pO2 VBG HCO3 VBG O2 Saturation VBG Base Excess Sodium 135 Potassium 3.7 D Chloride 99 Carbon Dioxide 25 Anion Gap 15 BUN 11 Creatinine 0.83 Estim Creat Clear Calc 91.2 Estimated GFR > 60 POC Glucose 310 H Random Glucose 335 H Lactic Acid 1.7 Calcium 8.5 D Magnesium 1.6 Total Bilirubin 0.7 AST 23 ALT 29 Alkaline Phosphatase 116 Troponin I High Sens Total Protein 6.7 D Albumin 4.0 Triglycerides Cholesterol LDL Cholesterol, Calc HDL Cholesterol Urine Color Urine Appearance Urine pH Ur Specific [place] Urine Protein Urine Glucose (UA) Urine Ketones Urine Blood Urine Nitrite Ur Leukocyte Esterase Urine RBC Urine WBC Ur Squamous Epith Cells Urine Bacteria COVID-19 (MARQUISE) COVID-19 House Party 11/26/21 11/26/21 11/26/21 17:27 17:32 17:39 WBC 12.0 H RBC 5.75 Hgb 16.0 Hct 47.1 MCV 81.9 MCH 27.8 MCHC 34.0 RDW 12.5 Plt Count 236 MPV 9.6 Immature Gran % (Auto) 0.3 Neut % (Auto) 85.6 H Lymph % (Auto) 8.3 L Geary % (Auto) 5.6 Eos % (Auto) 0.0 Baso % (Auto) 0.2 Lymph # (Auto) 1.0 L Geary # (Auto) 0.7 Eos # (Auto) 0.0 Baso # (Auto) 0.0 Abs Immat Gran (auto) 0.04 H Absolute Neuts (auto) 10.3 H Absolute Nucleated RBC 0.000 Nucleated RBC % (auto) 0.0 PT INR APTT aPTT Heparin Protocol VBG pH 7.47 H VBG pCO2 29 VBG pO2 153 VBG HCO3 21 L VBG O2 Saturation 99.0 VBG Base Excess -0.4 Sodium Potassium Chloride Carbon Dioxide Anion Gap BUN Creatinine Estim Creat Clear Calc Estimated GFR POC Glucose Random Glucose Lactic Acid Calcium Magnesium Total Bilirubin AST ALT Alkaline Phosphatase Troponin I High Sens 762.5 H* D Total Protein Albumin Triglycerides Cholesterol LDL Cholesterol, Calc HDL Cholesterol Urine Color Urine Appearance Urine pH Ur Specific [place] Urine Protein Urine Glucose (UA) Urine Ketones Urine Blood Urine Nitrite Ur Leukocyte Esterase Urine RBC Urine WBC Ur Squamous Epith Cells Urine Bacteria COVID-19 (MARQUISE) COVID-19 [employer] Com 11/26/21 11/26/21 11/26/21 17:40 17:41 19:21 WBC RBC Hgb Hct MCV MCH MCHC RDW Plt Count MPV Immature Gran % (Auto) Neut % (Auto) Lymph % (Auto) Geary % (Auto) Eos % (Auto) Baso % (Auto) Lymph # (Auto) Geary # (Auto) Eos # (Auto) Baso # (Auto) Abs Immat Gran (auto) Absolute Neuts (auto) Absolute Nucleated RBC Nucleated RBC % (auto) PT INR APTT aPTT Heparin Protocol VBG pH VBG pCO2 VBG pO2 VBG HCO3 VBG O2 Saturation VBG Base Excess Sodium Potassium Chloride Carbon Dioxide Anion Gap BUN Creatinine Estim Creat Clear Calc Estimated GFR POC Glucose Random Glucose Lactic Acid Calcium Magnesium Total Bilirubin AST ALT Alkaline Phosphatase Troponin I High Sens 911.6 H* Total Protein Albumin Triglycerides Cholesterol LDL Cholesterol, Calc HDL Cholesterol Urine Color YELLOW Urine Appearance CLEAR Urine pH 6.5 Ur Specific [place] 1.010 Urine Protein 1+ H Urine Glucose (UA) >=1000 H Urine Ketones 15 Urine Blood NEG Urine Nitrite NEG Ur Leukocyte Esterase NEG Urine RBC 0 Urine WBC 0 Ur Squamous Epith Cells NONE Urine Bacteria TRACE COVID-19 (MARQUISE) Negative COVID-19 Clin Com 0 11/26/21 11/26/21 11/27/21 19:22 19:22 01:04 WBC 13.7 H RBC 5.96 H Hgb 16.7 Hct 49.0 MCV 82.2 MCH 28.0 MCHC 34.1 RDW 12.5 Plt Count 250 MPV 9.4 Immature Gran % (Auto) Neut % (Auto) Lymph % (Auto) Geary % (Auto) Eos % (Auto) Baso % (Auto) Lymph # (Auto) Geary # (Auto) Eos # (Auto) Baso # (Auto) Abs Immat Gran (auto) Absolute Neuts (auto) Absolute Nucleated RBC 0.000 Nucleated RBC % (auto) 0.0 PT 11.3 INR 1.0 APTT aPTT Heparin Protocol 92.3 H VBG pH VBG pCO2 VBG pO2 VBG HCO3 VBG O2 Saturation VBG Base Excess Sodium Potassium Chloride Carbon Dioxide Anion Gap BUN Creatinine Estim Creat Clear Calc Estimated GFR POC Glucose 308 H Random Glucose Lactic Acid Calcium Magnesium Total Bilirubin AST ALT Alkaline Phosphatase Troponin I High Sens Total Protein Albumin Triglycerides Cholesterol LDL Cholesterol, Calc HDL Cholesterol Urine Color Urine Appearance Urine pH Ur Specific [place] Urine Protein Urine Glucose (UA) Urine Ketones Urine Blood Urine Nitrite Ur Leukocyte Esterase Urine RBC Urine WBC Ur Squamous Epith Cells Urine Bacteria COVID-19 (MARQUISE) COVID-19 Clin Com 11/27/21 11/27/21 11/27/21 02:04 04:01 04:01 WBC 9.9 RBC 5.27 Hgb 14.7 Hct 43.4 MCV 82.4 MCH 27.9 MCHC 33.9 RDW 12.6 Plt Count 226 MPV 9.6 Immature Gran % (Auto) 0.3 Neut % (Auto) 62.5 Lymph % (Auto) 27.1 Geary % (Auto) 9.2 Eos % (Auto) 0.6 Baso % (Auto) 0.3 Lymph # (Auto) 2.7 Geary # (Auto) 0.9 Eos # (Auto) 0.1 Baso # (Auto) 0.0 Abs Immat Gran (auto) 0.03 Absolute Neuts (auto) 6.2 Absolute Nucleated RBC 0.000 Nucleated RBC % (auto) 0.0 PT 11.9 INR 1.0 APTT 33.6 aPTT Heparin Protocol VBG pH VBG pCO2 VBG pO2 VBG HCO3 VBG O2 Saturation VBG Base Excess Sodium Potassium Chloride Carbon Dioxide Anion Gap BUN Creatinine Estim Creat Clear Calc Estimated GFR POC Glucose Random Glucose Lactic Acid Calcium Magnesium Total Bilirubin AST ALT Alkaline Phosphatase Troponin I High Sens Total Protein Albumin Triglycerides Cholesterol LDL Cholesterol, Calc HDL Cholesterol Urine Color Urine Appearance Urine pH Ur Specific [place] Urine Protein Urine Glucose (UA) Urine Ketones Urine Blood Urine Nitrite Ur Leukocyte Esterase Urine RBC Urine WBC Ur Squamous Epith Cells Urine Bacteria COVID-19 (MARQUISE) COVID-19 Clin Com 11/27/21 11/27/21 11/27/21 04:01 06:55 09:53 WBC RBC Hgb Hct MCV MCH MCHC RDW Plt Count MPV Immature Gran % (Auto) Neut % (Auto) Lymph % (Auto) Geary % (Auto) Eos % (Auto) Baso % (Auto) Lymph # (Auto) Geary # (Auto) Eos # (Auto) Baso # (Auto) Abs Immat Gran (auto) Absolute Neuts (auto) Absolute Nucleated RBC Nucleated RBC % (auto) PT INR APTT aPTT Heparin Protocol 197.9 H* D VBG pH VBG pCO2 VBG pO2 VBG HCO3 VBG O2 Saturation VBG Base Excess Sodium 136 Potassium 3.7 Chloride 100 Carbon Dioxide 27 Anion Gap 13 BUN 15 Creatinine 1.00 Estim Creat Clear Calc 75.7 Estimated GFR > 60 POC Glucose 286 H Random Glucose 337 H Lactic Acid Calcium 8.6 Magnesium Total Bilirubin AST ALT Alkaline Phosphatase Troponin I High Sens Total Protein Albumin Triglycerides 450 Cholesterol 206 LDL Cholesterol, Calc TNP HDL Cholesterol 27 Urine Color Urine Appearance Urine pH Ur Specific [place] Urine Protein Urine Glucose (UA) Urine Ketones Urine Blood Urine Nitrite Ur Leukocyte Esterase Urine RBC Urine WBC Ur Squamous Epith Cells Urine Bacteria COVID-19 (MARQUISE) COVID-19 House Party 11/27/21 11:29 WBC RBC Hgb Hct MCV MCH MCHC RDW Plt Count MPV Immature Gran % (Auto) Neut % (Auto) Lymph % (Auto) Geary % (Auto) Eos % (Auto) Baso % (Auto) Lymph # (Auto) Geary # (Auto) Eos # (Auto) Baso # (Auto) Abs Immat Gran (auto) Absolute Neuts (auto) Absolute Nucleated RBC Nucleated RBC % (auto) PT INR APTT aPTT Heparin Protocol 111.7 H* D VBG pH VBG pCO2 VBG pO2 VBG HCO3 VBG O2 Saturation VBG Base Excess Sodium Potassium Chloride Carbon Dioxide Anion Gap BUN Creatinine Estim Creat Clear Calc Estimated GFR POC Glucose Random Glucose Lactic Acid Calcium Magnesium Total Bilirubin AST ALT Alkaline Phosphatase Troponin I High Sens Total Protein Albumin Triglycerides Cholesterol LDL Cholesterol, Calc HDL Cholesterol Urine Color Urine Appearance Urine pH Ur Specific [place] Urine Protein Urine Glucose (UA) Urine Ketones Urine Blood Urine Nitrite Ur Leukocyte Esterase Urine RBC Urine WBC Ur Squamous Epith Cells Urine Bacteria COVID-19 (MARQUISE) COVID-19 House Party Discharge Plan Discharge Patient Disposition: Xfer Acute Care Hospital Discharge Diagnosis: Non ST-elevation IA Left internal carotid artery stenosis Referrals: [facility] [Outside] - 1 Week Balbir Farfan MD [Primary Care Provider] - 1 Week Discharge Medications: New insulin lispro [Humalog U-100 Insulin] 100 unit/mL Solution See Protocol subcut QIDACHS Qty: 10 0RF Protocol: Insulin Correction Scale Less than or equal to 110 ---- Give (units): 0 111 to 150 Give (units): 0 151 to 200 Give (units): 4 201 to 250 Give (units): 6 251 to 300 Give (units): 8 301 to 350 Give (units): 10 Greater than 350 Give (units): 12 Call MD if Blood Glucose > : 350 acetaminophen 325 mg Tablet 650 mg PO Q6H PRN (Reason: Pain, Mild (Pain Scale 1-3)) Qty: 30 0RF aspirin 81 mg Tablet,Delayed Release (Dr/Ec) 81 mg PO DAILY Qty: 30 0RF atorvastatin 40 mg Tablet 80 mg PO DAILY Qty: 30 0RF heparin(porcine) in 0.45% NaCl 25,000 unit/250 mL Parenteral Solution 25,000 unit continuous IV infusion .Q0M Qty: 1 0RF metoprolol tartrate 25 mg tablet 12.5 mg PO BID Qty: 60 0RF Continued buspirone 5 mg tablet 7.5 mg PO BID clonazepam 0.5 mg tablet 0.5 mg PO BID PRN (Reason: Anxiety) dextroamphetamine-amphetamine 20 mg capsule,extended release 24hr 40 mg PO DAILY gabapentin 300 mg capsule 900 mg PO BID insulin lispro [Humalog U-100 Insulin] 100 unit/mL solution 135 unit subcut DAILY Rx Instructions: Typically receives Humalog through your insulin pump (omnipod) but ran out of [employer] last week so he has been injecting insulin since Friday. metoclopramide HCl 10 mg tablet 10 mg PO BID Trulicity 1.5 mg/0.5 mL pen injector 0.5 ml subcut QWEEK omeprazole 20 mg Tablet,Delayed Release (Dr/Ec) 20 mg PO BID Discontinued metformin 500 mg tablet 3,000 mg PO BID ondansetron HCl 4 mg tablet 4 mg PO DIRECTED PRN (Reason: Nausea) ibuprofen 800 mg Tablet 800 mg PO Q6H PRN (Reason: Pain) Discharge Orders: Discharge Order (Routine); Ordered 11/27/21 Ordered By: Abel Ferguson Diet: Low fat, low cholesterol Activity on Discharge: bed rest Stand Alone Forms: Patient Portal Discharge page Care Plan Goals: Non ST-elevation IA continue IV heparin, aspirin, beta-charlie and statins and transferred to [facility] for cardiac catheterization Health Concerns: Need good blood pressures/blood sugar and cholesterol control, close follow-up with PCP as outpatient Plan of Treatment: To [facility] for cardiac catheterization/will need vascular surgery consult for left internal carotid artery stenosis Assessment: As per discharge summary Discharge Date/Time: 11/27/21 16:48
--- NOTE | 2021-11-27 13:00 | PC.NURSE ---
@ 1259pm pily from [facility] pt tx line calls with room assignment and accepting md [employer] m5, room 115 rn to rn: [phone] rock
[2021-11-27 14:10] LABS: Glucose, Whole Blood 282 mg/dL (60-115)
[2021-11-27 14:23] LABS: PTT Heparin Drip 35.3 SEC (53-77.9)
--- NOTE | 2021-11-27 15:07 | PC.NURSE ---
called in report back to [facility] as PTT was 35.3 which is low, heparin drip restarted to 12/hr
== END 2021-11-27 16:48 | disposition short-term general hospital (02) | DRG 282 ==
LOC: HO.ED 19:46 → HO.EDOVER 20:51
PROVIDERS: Physician Assistant Medical; Admitting Provider Internal Medicine; Emergency Provider Emergency Medicine; PCP Family Medicine; Visit Provider Hospitalist
DX: I21.4 Non-ST elevation (NSTEMI) myocardial infarction (principal); I25.10 Atherosclerotic heart disease of native coronary artery without angina pectoris; E11.40 Type 2 diabetes mellitus with diabetic neuropathy, unspecified; Z88.8 Allergy status to other drugs, medicaments and biological substances; Z79.4 Long term (current) use of insulin; Z79.82 Long term (current) use of aspirin; Z79.84 Long term (current) use of oral hypoglycemic drugs; Z79.899 Other long term (current) drug therapy
CPT/HCPCS: 36415; 71046; 80048; 80053; 80061; 81001; 82803; 82947; 83605; 83735; 84484; 85025; 85027; 85610; 85730; 87040; 87635; 93005; 93306; 93356; 93880; 96361; 96365; 96366; 96375; 99285

== ENCOUNTER 2021-11-29 15:35 | Observation (INO) | payer MEDICARE, BC, SELFPAY ==
--- NOTE | ~2021-11-29 | XR_ITS ---
EXAMINATION: XR CHEST CLINICAL INFORMATION: Chest pain. COMPARISON: 11/26/2021 chest radiographs. TECHNIQUE: Frontal view of the chest was obtained. FINDINGS: No significant abnormality is noted involving the heart, lungs, mediastinum, bony thorax or soft tissues. XR/XR chest 1V IMPRESSION: No acute cardiopulmonary process.
--- NOTE | ~2021-11-29 | CT_ITS ---
EXAM: 1. CTA chest, PE protocol 2. CT abdomen and pelvis with IV contrast INDICATION: Elevated d-dimer. Rule out PE. Left lower quadrant abdominal pain. COMPARISON: Chest x-ray earlier today and CT abdomen pelvis 07/04/2021 TECHNIQUE: Multidetector helical imaging of the chest, abdomen, and pelvis was obtained from the thoracic inlet through the pubic symphysis following administration of 65 cc of Omnipaque 350 IV contrast. Coronal, sagittal and MIP images were provided for interpretation. DLP: 857 mGy-cm FINDINGS: CHEST: The heart is normal in size. There is no pericardial effusion. No pulmonary arterial filling defect to suggest pulmonary embolus. Normal caliber thoracic aorta. No mediastinal, hilar or axillary lymphadenopathy. Central airways are patent. Lungs are well aerated. There is minimal dependent atelectasis bilaterally. No lobar consolidation, pleural effusion or pneumothorax. There are a few small pulmonary nodules bilaterally, the largest is located within the right lung apex and measures 6 mm (image 146/519, series 8). ABDOMEN/PELVIS: The liver is normal in size. Punctate gallstone noted within an otherwise unremarkable appearing gallbladder. Mild fatty atrophy of the pancreas. The spleen and adrenal glands are unremarkable. Symmetrically enhancing kidneys without hydronephrosis. Right renal cyst again reidentified. Normal caliber loops of small and large bowel. Normal appendix. Normal caliber abdominal aorta demonstrating only mild atherosclerotic disease. No retroperitoneal lymphadenopathy. Tiny fat-containing umbilical hernia is unchanged. The bladder is normal in appearance. The prostate gland is at the upper limits of normal in size. No gross free pelvic fluid. No inguinal lymphadenopathy. OSSEOUS STRUCTURES [id number] diffuse degenerative changes of the thoracolumbar spine. CT/CT angio chest PE protocol IMPRESSION: 1. No CT evidence for acute abnormality within the chest, abdomen or pelvis. 2. No pulmonary embolus. 3. Cholelithiasis. 4. A few tiny pulmonary nodules are noted, largest measuring 6 mm. According to the UPDATED 2017 Fleischner Society recommendations, the advised follow-up imaging for multiple solid nodules, the largest measuring 6 mm or greater, is: LOW RISK PATIENT: CT at 3-6 months, then consider CT at 18-24 months. HIGH RISK PATIENT: CT at 3-6 months, then at 18-[address] examination was performed using dose optimization techniques as appropriate, variously including the following: *Automated exposure control *Adjustment of mA and/or kV according to patient size (this includes techniques or standardized protocols for targeted exams where dose is matched to indication/reason for exam; i.e. extremities or head) *Use of iterative reconstruction technique
[2021-11-29 15:44] VITALS: BP 108/65; PULSE 119; RESP 18; TEMP 36.7; O2SAT 98; BMI 26.7
--- NOTE | 2021-11-29 15:50 | ECG_ITS ---
Test Reason : CHEST PAIN Blood Pressure : / mmHG Vent. Rate : 122 BPM Atrial Rate : 122 BPM P-R Int : 164 ms QRS Dur : 074 ms QT Int : 318 ms P-R-T Axes : 066 036 104 degrees QTc Int : 453 ms Sinus tachycardia Cannot rule out Inferior infarct , age undetermined Nonspecific ST and T wave abnormality Abnormal ECG When compared with ECG of 26-NOV-2021 18:05, Lateral T inversion slightly more prominent. Referred By: Generic ED Physician Electronically Signed By:STEFFI WEISS
[2021-11-29 16:18] LABS: MANUAL DIFF FLAG NO
[2021-11-29 16:22] LABS: Basophils Percent Auto 0.4 % (0-2); Eosinophils Absolute Auto 0.1 X10*3/uL (0.0-0.4); Eosinophils Percent Auto 0.6 % (0-4); Hematocrit 49.8 % (42.0-52.0); Hemoglobin 17.1 g/dl (14.0-18.0); Imm Gran Abs Auto 0.04 X10*3/uL (0.00-0.03); Imm Gran Pct Auto 0.4 % (0.0-0.4); Lymphocytes Absolute Auto 1.8 X10*3/uL (1.2-4.9); Lymphocytes Percent Auto 19.8 % (20-40); Mean Corpuscular HGB Conc 34.3 g/dl (31.0-36.0); Mean Corpuscular Volume 81.5 fL (80.0-98.0); Mean Platelet Volume 9.1 fL (9.4-12.4); Monocytes Absolute Auto 0.8 X10*3/uL (0.1-1.2); Monocytes Percent Auto 8.5 % (2-11); Neutrophils Absolute Auto 6.5 x10*3/uL (2.0-8.3); Neutrophils Percent Auto 70.3 % (45-73); Platelet Count 292 X10*3/uL (160-400); Red Blood Count 6.11 X10*6/uL (4.60-5.80); Red Cell Distribution Width 12.7 % (11.0-16.0); White Blood Count 9.3 X10*3/uL (4.8-10.8)
[2021-11-29 16:40] LABS: Anion Gap 15 (12-20); Blood Urea Nitrogen 17 mg/dL (9-16); Calcium 10.3 mg/dL (8.4-10.2); Carbon Dioxide 24 mmol/L (22-29); Chloride 104 mmol/L (96-108); Creatinine Clr Calc Pharmacy 65.5; Estimated Glomerular Filt Rate > 60; Glucose Random 185 mg/dL (60-115); Potassium 4.1 mmol/L (3.3-5.1); Sodium 139 mmol/L (135-145)
--- NOTE | 2021-11-29 18:11 | ED.CHESTPAIN ---
HPI - Chest Pain General Chief Complaint: Chest Pain Stated Complaint: chest pain Time Seen by Provider: 11/29/21 16:01 Source: patient Mode of arrival: ambulatory History of Present Illness HPI narrative: 66-year-old male with a past medical history of diabetes, diabetic neuropathy, left internal carotid artery stenosis, recent NSTEMI s/p stent placement on 11/27/2021 currently on ASA/Brilinta, presenting to the ED complaining substernal chest tightness since this morning. Reports symptoms worse with deep breathing, and has exertional dyspnea. Admits to feeling clammy earlier today and nauseous. patient also reports LLQ abdominal pain. Denies fever, cough, abdominal pain, vomiting, pedal edema, calf pain, testicular pain or swelling MD complaint: chest pain Pertinent past history: coronary artery disease and prior CO Onset (ago): hour(s) Related Data Home Medications Medication Instructions Recorded Confirmed buspirone 5 mg tablet 5 mg PO BID 07/04/21 11/26/21 clonazepam 0.5 mg tablet 0.5 mg PO BID PRN Anxiety 07/04/21 11/26/21 dulaglutide 1.5 mg/0.5 mL 0.5 ml subcut QWEEK 07/04/21 11/26/21 subcutaneous pen injector (Trulicity) gabapentin 300 mg capsule 900 mg PO BID 07/04/21 11/26/21 metoclopramide HCl 10 mg tablet 10 mg PO TID PRN STOMACH SPASMS 07/04/21 11/26/21 omeprazole 20 mg tablet,delayed 20 mg PO BID 11/26/21 11/26/21 release dextroamphetamine-amphetamine ER 1 cap PO BID 11/29/21 20 mg 24hr capsule,extend release insulin glargine 100 unit/mL (3 15 unit subcut BEDTIME 11/29/21 mL) subcutaneous pen (Lantus Solostar U-100 Insulin) insulin lispro 100 unit/mL See Rx Instructions .Route .COMPLEX 11/29/21 subcutaneous solution (Humalog U-100 Insulin) metoprolol succinate 25 mg 1 tab PO DAILY 11/29/21 tablet,extended release 24 hr rosuvastatin 40 mg tablet 1 tab PO DAILY 11/29/21 Previous Rx's Medication Instructions Recorded acetaminophen 325 mg tablet 650 mg PO Q6H PRN Pain, Mild (Pain 11/27/21 Scale 1-3) #30 tabs aspirin 81 mg tablet,delayed 81 mg PO DAILY #30 tabs 11/27/21 release Allergies Allergy/AdvReac Type Severity Reaction Status Date / Time liraglutide [From VICTOZA] Allergy Unknown UNKNOWN Verified 11/29/21 15:44 Review of Systems Review of Systems: Constitutional: No Fever, No Chills, No Fatigue, No Malaise, +diaphoresis ENT/Mouth: No Ear Pain, No Nasal Congestion, No sore throat, No Rhinorrhea, No Swallowing Difficulty Eyes: No Eye Pain, No Swelling, No Redness, No Vision Changes Cardiovascular: + Chest tightness, No SOB, + Dyspnea on Exertion, No Orthopnea, No Edema, No Palpitations Respiratory: No Cough, No Sputum, No Dyspnea Gastrointestinal: No Nausea, No Vomiting, No Diarrhea, No Constipation, No Abdominal pain Genitourinary: No irregular bleeding, No Dysuria, No Urinary Frequency, No Hematuria, No Urinary Flow Changes, No Hesitancy Musculoskeletal: No joint pain, No Myalgias, No Joint Swelling Skin: No Skin Lesions, No rash Neuro: No Weakness, No Numbness, No Loss of Consciousness, No Dizziness, No Headache Yes all other systems are reviewed and are negative Constitutional: Constitutional: Reports as per [facility] Past Medical History Attestation statement: The following information was validated with the patient. Medical History (Updated 11/29/21 @ 21:03 by SHAYLA Liu) Gastroparesis Neuropathy Type 2 diabetes mellitus with unspecified complications Surgical History (Updated 11/27/21 @ 02:34 by Shyanne Franks MD) H/O eye surgery Family History Family History (Updated 11/27/21 @ 02:34 by Shyanne Franks MD) Mother CAD (coronary artery disease) Brother CAD (coronary artery disease) Social History Social History Alcohol intake: current Patient Tobacco Use Status: Never used Tobacco Advance Directives: Yes Advance Directives Information Provided: Yes Advance Directives on File: No service: No Current occupational status: employed Physical Exam Vital Signs: Vital Signs: Last Vital Signs Temp 98.1 F 11/29/21 15:44 Pulse 117 H 11/29/21 18:42 Resp 18 07/28/22 18:42 BP 119/68 11/29/21 18:42 Pulse Ox 98 11/29/21 18:42 O2 Del Method 11/29/21 18:42 BMI result Body Mass Index 26.7 Const: General: cooperative, healthy appearing and no acute distress Orientation/consciousness: patient oriented x3 Limitations: no limitations HEENT: Head: Yes normal to inspection and Yes atraumatic Ears: hearing grossly normal bilaterally General nose exam: Normal external nose present Face and sinus: Yes normal facial exam Eyes: General: appearance normal, both eyes and all related structures EOM: EOMs intact bilaterally Neck: Neck: Yes normal visual inspection and Yes no meningeal signs Resp: Effort & Inspection: normal respiratory effort and no respiratory distress Auscultation: clear to auscultation bilaterally, no rales, no rhonchi and no wheezes Cardio: Rate: regular rate and tachycardic Heart sounds: S1 normal heart sound present and S2 normal heart sound present Peripheral pulses: radial pulses present GI: Inspection: Yes normal to inspection Palpation (GI): Soft to palpation, Tenderness to palpation present (GI) in the LLQ; with no rebound tenderness, no guarding and not rigid : General: Yes no CVA tenderness Back/Spine/Pelvis: Back: no CVA tenderness Skin: Rashes: no rashes Wounds: no wounds Neuro: General: patient oriented x3, tone normal and no meningeal signs Gait exam (Neuro): Normal gait present Extrem: General: Yes normal to inspection, Yes no pedal edema and Yes no calf tenderness Course Course Course Narrative: -1820-- no leukocytosis. H&H stable. AST/ ALT elevated - troponin 198 improved from prior visit >> consulted Cardiology Dr. Aranda who suspects possible pericarditis & recommended Motrin, PPI, Metoprolol for HR control, and admission. He also spoke with Dr. Hoyos who placed patient's stent & he recommended D-dimer XR chest 1V IMPRESSION: No acute cardiopulmonary process. - repeat troponin 230, BNP 176 - D-dimer 682 >> will obtain CTA to rule out PE -2100-- case was discussed with hospitalist, ED care transferred to Dr. Morales pending CTA/ CT AP results and admission MDM - Chest Pain MDM Narrative Medical decision making narrative: 66-year-old male with a past medical history of diabetes, diabetic neuropathy, left internal carotid artery stenosis, recent NSTEMI s/p stent placement on 11/27/2021 currently on ASA/Brilinta, presenting to the ED complaining substernal chest tightness since this morning. Reports symptoms worse with deep breathing, and has exertional dyspnea. on exam tachycardic, NAD, nontoxic appearing, lungs CTA, no pedal edema/calf tenderness, abdomen soft with LLQ tenderness, no rebound or guarding. Concern for ACS vs ? stent failure vs myocarditis or pericarditis or PE although patient anticoagulated. concern for diverticulitis vs constipation plan: EKG, labs, CXR, cardiology consult, CT AP Differential Diagnosis Differential diagnosis: Likely stable angina, unstable angina pectoris, atypical chest pain, st elevation myocardial infarction, costochondritis and chest pain Medical Records Data Attestation: I reviewed the patient's medical records. Lab Data Attestation: I reviewed the patient's lab results. Result diagrams: 11/29/21 16:12 11/29/21 16:12 Labs: Lab Results 11/29/21 11/29/21 11/29/21 Range/Units 16:12 16:12 16:12 WBC 9.3 (4.8-10.8) X10*3/uL RBC 6.11 H (4.60-5.80) X10*6/uL Hgb 17.1 (14.0-18.0) g/dl Hct 49.8 (42.0-52.0) % MCV 81.5 (80.0-98.0) fL MCH 28.0 (27.0-33.0) pg MCHC 34.3 (31.0-36.0) g/dl RDW 12.7 (11.0-16.0) % Plt Count 292 D (160-400) X10*3/uL MPV 9.1 L (9.4-12.4) fL Immature Gran % (Auto) 0.4 (0.0-0.4) % Neut % (Auto) 70.3 (45-73) % Lymph % (Auto) 19.8 L (20-40) % [place] % (Auto) 8.5 (2-11) % Eos % (Auto) 0.6 (0-4) % Baso % (Auto) 0.4 (0-2) % Lymph # (Auto) 1.8 (1.2-4.9) X10*3/uL [place] # (Auto) 0.8 (0.1-1.2) X10*3/uL Eos # (Auto) 0.1 (0.0-0.4) X10*3/uL Baso # (Auto) 0.0 (0.0-0.2) X10*3/uL Abs Immat Gran (auto) 0.04 H (0.00-0.03) X10*3/uL Absolute Neuts (auto) 6.5 (2.0-8.3) x10*3/uL Absolute Nucleated RBC 0.000 (0.0-0.012) X10*3/uL Nucleated RBC % (auto) 0.0 (0.0-0.2) /100WBC PT (10.0-13.1) SEC INR (0.9-1.1) APTT (26.0-36.4) SEC D-Dimer High Sensitivty NG/ML Sodium 139 (135-145) mmol/L Potassium 4.1 (3.3-5.1) mmol/L Chloride 104 (96-108) mmol/L Carbon Dioxide 24 (22-29) mmol/L Anion Gap 15 (12-20) BUN 17 H (9-16) mg/dL Creatinine 1.05 (0.5-1.4) mg/dL Estim Creat Clear Calc 65.5 Estimated GFR > 60 Random Glucose 185 H D (60-115) mg/dL Calcium 10.3 H D (8.4-10.2) mg/dL Magnesium 2.2 (1.6-2.6) mg/dL Total Bilirubin 0.6 (0.0-1.0) mg/dL Direct Bilirubin 0.2 (0.0-0.5) mg/dL AST 63 H (5-37) U/L ALT 56 H (0-40) U/L Alkaline Phosphatase 135 H (39-117) U/L Troponin I High Sens 198.0 H* D (<3.5-35.0) ng/L B-Natriuretic Peptide 176 H (<100) pg/mL Total Protein 7.8 (6.5-8.0) g/dL Albumin 4.7 (3.5-5.0) g/dL COVID-19 ([facility]) (Negative) COVID-19 Clin Com 11/29/21 11/29/21 11/29/21 Range/Units 18:39 18:39 18:39 WBC (4.8-10.8) X10*3/uL RBC (4.60-5.80) X10*6/uL Hgb (14.0-18.0) g/dl Hct (42.0-52.0) % MCV (80.0-98.0) fL MCH (27.0-33.0) pg MCHC (31.0-36.0) g/dl RDW (11.0-16.0) % Plt Count (160-400) X10*3/uL MPV (9.4-12.4) fL Immature Gran % (Auto) (0.0-0.4) % Neut % (Auto) (45-73) % Lymph % (Auto) (20-40) % [place] % (Auto) (2-11) % Eos % (Auto) (0-4) % Baso % (Auto) (0-2) % Lymph # (Auto) (1.2-4.9) X10*3/uL [place] # (Auto) (0.1-1.2) X10*3/uL Eos # (Auto) (0.0-0.4) X10*3/uL Baso # (Auto) (0.0-0.2) X10*3/uL Abs Immat Gran (auto) (0.00-0.03) X10*3/uL Absolute Neuts (auto) (2.0-8.3) x10*3/uL Absolute Nucleated RBC (0.0-0.012) X10*3/uL Nucleated RBC % (auto) (0.0-0.2) /100WBC PT 10.9 (10.0-13.1) SEC INR 1.0 (0.9-1.1) APTT 30.4 (26.0-36.4) SEC D-Dimer High Sensitivty 682 NG/ML Sodium (135-145) mmol/L Potassium (3.3-5.1) mmol/L Chloride (96-108) mmol/L Carbon Dioxide (22-29) mmol/L Anion Gap (12-20) BUN (9-16) mg/dL Creatinine (0.5-1.4) mg/dL Estim Creat Clear Calc Estimated GFR Random Glucose (60-115) mg/dL Calcium (8.4-10.2) mg/dL Magnesium (1.6-2.6) mg/dL Total Bilirubin (0.0-1.0) mg/dL Direct Bilirubin (0.0-0.5) mg/dL AST (5-37) U/L ALT (0-40) U/L Alkaline Phosphatase (39-117) U/L Troponin I High Sens 230.0 H* (<3.5-35.0) ng/L B-Natriuretic Peptide (<100) pg/mL Total Protein (6.5-8.0) g/dL Albumin (3.5-5.0) g/dL COVID-19 ([facility]) Negative (Negative) COVID-19 Clin Com See Note ECG Data ECG #1: Attestation: I personally reviewed and interpreted this ECG as follows: ECG interpretation date: 11/29/21 ECG interpretation time: 15:57 Prior ECG tracings: available for review Interpretation: EKG sinus tachycardia rate of 122. LA interval 164. QTC 453. No significant change when compared to prior EKGs. No STEMI Critical Care Time Critical Care Time Critical Care Time: Yes Total Critical Care Time: 40 Attestation: I have personally provided critical care time exclusive of time spent on separately billable procedures. Time includes review of lab data, radiology results, discussion with consultants, and monitoring for potential decompensation. Intervention performed as documented. Discharge Plan Discharge Clinical Impression: Atypical chest pain, Exertional dyspnea, Abdominal pain, acute, left lower quadrant Patient Disposition: Admitted As Inpatient
[2021-11-29 18:19] LABS: Alanine Aminotransferase 56 U/L (0-40); Albumin Level 4.7 g/dL (3.5-5.0); Alkaline Phosphatase 135 U/L (39-117); Aspartate Amino Transferase 63 U/L (5-37); Bilirubin Direct 0.2 mg/dL (0.0-0.5); Bilirubin Total 0.6 mg/dL (0.0-1.0); Magnesium 2.2 mg/dL (1.6-2.6); Total Protein 7.8 g/dL (6.5-8.0)
[2021-11-29 18:23] LABS: B Type Natriuretic Peptide 176 pg/mL (<100)
[2021-11-29] MEDS: 0.9 % Sodium Chloride 1,000 ML 999 ML IV (18:41)
[2021-11-29 18:42] VITALS: BP 119/68; PULSE 117; RESP 18; O2SAT 98
[2021-11-29 19:05] LABS: Prothrombin Time 10.9 SEC (10.0-13.1)
--- NOTE | 2021-11-29 19:06 | PC.NURSE ---
Assumed care of this pt. at 1900 - report from Mine Jessica RN
[2021-11-29 19:07] LABS: D Dimer High Sensitivity 682 NG/ML
[2021-11-29 19:08] LABS: Partial Thromboplastin Time 30.4 SEC (26.0-36.4)
--- NOTE | 2021-11-29 19:18 | HE.PHANOTE ---
RE MEDICATION RECONCILIATION Due to staffing issues, pharmacy unable to completed medrecs after 1900. Called and spoke to RN Ann Marie about Jamal. I let her know that we will not be completing the med rec but we did however enter all the medications from the claim history. I asked her to make sure she adds the brilinta if the patient is taking it since it was noted in the ED note but note on the patient's pharmacy claim history. Will review medications once RN confirms with patient. Thanks Zafar
--- NOTE | 2021-11-29 19:34 | PC.NURSE ---
Pt A+Ox3, behavior appropriate, denies CP at this time, Iv running with NS, HR elevated/Tachy 101
[2021-11-29 19:37] LABS: COVID-19 Test Negative (Negative)
[2021-11-29] MEDS: iohexoL 350 MG/ML 100 ML INFUS..BTL IV (20:33)
[2021-11-29 22:00] VITALS: BP 126/66; PULSE 104; RESP 20; O2SAT 99
--- NOTE | 2021-11-29 22:25 | ED.CHESTPAIN ---
HPI - Chest Pain General Chief Complaint: Chest Pain Stated Complaint: chest pain Time Seen by Provider: 11/29/21 16:01 Source: patient Mode of arrival: ambulatory Related Data Home Medications Medication Instructions Recorded Confirmed buspirone 5 mg tablet 5 mg PO BID 07/04/21 11/30/21 clonazepam 0.5 mg tablet 0.5 mg PO BID PRN Anxiety 07/04/21 11/30/21 metoclopramide HCl 10 mg tablet 10 mg PO TID PRN STOMACH SPASMS 07/04/21 11/30/21 omeprazole 20 mg tablet,delayed 20 mg PO BID 11/26/21 11/30/21 release dextroamphetamine-amphetamine ER 40 mg PO DAILY 11/29/21 11/30/21 20 mg 24hr capsule,extend release insulin glargine 100 unit/mL (3 15 unit subcut BEDTIME 11/29/21 11/30/21 mL) subcutaneous pen (Lantus Solostar U-100 Insulin) insulin lispro 100 unit/mL See Rx Instructions .Route .COMPLEX 11/29/21 11/30/21 subcutaneous solution (Humalog U-100 Insulin) rosuvastatin 40 mg tablet 1 tab PO DAILY 11/29/21 11/30/21 metformin 500 mg tablet 1,000 mg PO BID 11/30/21 11/30/21 ticagrelor 90 mg tablet 90 mg PO BID 11/30/21 11/30/21 Previous Rx's Medication Instructions Recorded acetaminophen 325 mg tablet 650 mg PO Q6H PRN Pain, Mild (Pain 11/27/21 Scale 1-3) #30 tabs aspirin 81 mg tablet,delayed 81 mg PO DAILY #30 tabs 11/27/21 release ibuprofen 600 mg tablet 600 mg PO BID 7 days #14 tabs 11/30/21 metoprolol succinate 50 mg 50 mg PO DAILY #30 tabs 11/30/21 tablet,extended release 24 hr Allergies Allergy/AdvReac Type Severity Reaction Status Date / Time liraglutide [From VICTOZA] Allergy Unknown UNKNOWN Verified 11/29/21 15:44 [facility] Past Medical History Medical History (Updated 11/30/21 @ 11:19 by Corie Howell MD) Atherosclerotic cardiovascular disease Gastroparesis Neuropathy Type 2 diabetes mellitus with unspecified complications Surgical History H/O eye surgery Family History Family History Mother CAD (coronary artery disease) Brother CAD (coronary artery disease) Social History Social History Alcohol intake: current Patient Tobacco Use Status: Never used Tobacco service: No Current occupational status: employed Physical Exam Vital Signs: Vital Signs: Last Vital Signs Temp 98.1 F 11/29/21 15:44 Pulse 104 H 11/29/21 22:00 Resp 20 11/29/21 22:00 BP 126/66 11/29/21 22:00 Pulse Ox 99 11/29/21 22:00 O2 Del Method 11/29/21 22:00 BMI result Body Mass Index 26.7 MDM - Chest Pain Lab Data Result diagrams: 11/30/21 06:35 11/30/21 06:35 Labs: Lab Results 11/29/21 11/29/21 11/29/21 Range/Units 16:12 16:12 16:12 WBC 9.3 (4.8-10.8) X10*3/uL RBC 6.11 H (4.60-5.80) X10*6/uL Hgb 17.1 (14.0-18.0) g/dl Hct 49.8 (42.0-52.0) % MCV 81.5 (80.0-98.0) fL MCH 28.0 (27.0-33.0) pg MCHC 34.3 (31.0-36.0) g/dl RDW 12.7 (11.0-16.0) % Plt Count 292 D (160-400) X10*3/uL MPV 9.1 L (9.4-12.4) fL Immature Gran % (Auto) 0.4 (0.0-0.4) % Neut % (Auto) 70.3 (45-73) % Lymph % (Auto) 19.8 L (20-40) % [place] % (Auto) 8.5 (2-11) % Eos % (Auto) 0.6 (0-4) % Baso % (Auto) 0.4 (0-2) % Lymph # (Auto) 1.8 (1.2-4.9) X10*3/uL [place] # (Auto) 0.8 (0.1-1.2) X10*3/uL Eos # (Auto) 0.1 (0.0-0.4) X10*3/uL Baso # (Auto) 0.0 (0.0-0.2) X10*3/uL Abs Immat Gran (auto) 0.04 H (0.00-0.03) X10*3/uL Absolute Neuts (auto) 6.5 (2.0-8.3) x10*3/uL Absolute Nucleated RBC 0.000 (0.0-0.012) X10*3/uL Nucleated RBC % (auto) 0.0 (0.0-0.2) /100WBC ESR (0-15) MM/HR PT (10.0-13.1) SEC INR (0.9-1.1) APTT (26.0-36.4) SEC D-Dimer High Sensitivty NG/ML Sodium 139 (135-145) mmol/L Potassium 4.1 (3.3-5.1) mmol/L Chloride 104 (96-108) mmol/L Carbon Dioxide 24 (22-29) mmol/L Anion Gap 15 (12-20) BUN 17 H (9-16) mg/dL Creatinine 1.05 (0.5-1.4) mg/dL Estim Creat Clear Calc 65.5 Estimated GFR > 60 Random Glucose 185 H D (60-115) mg/dL Calcium 10.3 H D (8.4-10.2) mg/dL Magnesium 2.2 (1.6-2.6) mg/dL Total Bilirubin 0.6 (0.0-1.0) mg/dL Direct Bilirubin 0.2 (0.0-0.5) mg/dL AST 63 H (5-37) U/L ALT 56 H (0-40) U/L Alkaline Phosphatase 135 H (39-117) U/L Troponin I High Sens 198.0 H* D (<3.5-35.0) ng/L C-Reactive Protein 0.95 H (< or = 0.50) mg/dL B-Natriuretic Peptide 176 H (<100) pg/mL Total Protein 7.8 (6.5-8.0) g/dL Albumin 4.7 (3.5-5.0) g/dL COVID-19 ([facility]) (Negative) COVID-19 Clin Com 11/29/21 11/29/21 11/29/21 Range/Units 16:12 18:39 18:39 WBC (4.8-10.8) X10*3/uL RBC (4.60-5.80) X10*6/uL Hgb (14.0-18.0) g/dl Hct (42.0-52.0) % MCV (80.0-98.0) fL MCH (27.0-33.0) pg MCHC (31.0-36.0) g/dl RDW (11.0-16.0) % Plt Count (160-400) X10*3/uL MPV (9.4-12.4) fL Immature Gran % (Auto) (0.0-0.4) % Neut % (Auto) (45-73) % Lymph % (Auto) (20-40) % [place] % (Auto) (2-11) % Eos % (Auto) (0-4) % Baso % (Auto) (0-2) % Lymph # (Auto) (1.2-4.9) X10*3/uL [place] # (Auto) (0.1-1.2) X10*3/uL Eos # (Auto) (0.0-0.4) X10*3/uL Baso # (Auto) (0.0-0.2) X10*3/uL Abs Immat Gran (auto) (0.00-0.03) X10*3/uL Absolute Neuts (auto) (2.0-8.3) x10*3/uL Absolute Nucleated RBC (0.0-0.012) X10*3/uL Nucleated RBC % (auto) (0.0-0.2) /100WBC ESR 12 (0-15) MM/HR PT 10.9 (10.0-13.1) SEC INR 1.0 (0.9-1.1) APTT 30.4 (26.0-36.4) SEC D-Dimer High Sensitivty 682 NG/ML Sodium (135-145) mmol/L Potassium (3.3-5.1) mmol/L Chloride (96-108) mmol/L Carbon Dioxide (22-29) mmol/L Anion Gap (12-20) BUN (9-16) mg/dL Creatinine (0.5-1.4) mg/dL Estim Creat Clear Calc Estimated GFR Random Glucose (60-115) mg/dL Calcium (8.4-10.2) mg/dL Magnesium (1.6-2.6) mg/dL Total Bilirubin (0.0-1.0) mg/dL Direct Bilirubin (0.0-0.5) mg/dL AST (5-37) U/L ALT (0-40) U/L Alkaline Phosphatase (39-117) U/L Troponin I High Sens 230.0 H* (<3.5-35.0) ng/L C-Reactive Protein (< or = 0.50) mg/dL B-Natriuretic Peptide (<100) pg/mL Total Protein (6.5-8.0) g/dL Albumin (3.5-5.0) g/dL COVID-19 ([facility]) (Negative) COVID-19 Clin Com 11/29/21 Range/Units 18:39 WBC (4.8-10.8) X10*3/uL RBC (4.60-5.80) X10*6/uL Hgb (14.0-18.0) g/dl Hct (42.0-52.0) % MCV (80.0-98.0) fL MCH (27.0-33.0) pg MCHC (31.0-36.0) g/dl RDW (11.0-16.0) % Plt Count (160-400) X10*3/uL MPV (9.4-12.4) fL Immature Gran % (Auto) (0.0-0.4) % Neut % (Auto) (45-73) % Lymph % (Auto) (20-40) % [place] % (Auto) (2-11) % Eos % (Auto) (0-4) % Baso % (Auto) (0-2) % Lymph # (Auto) (1.2-4.9) X10*3/uL [place] # (Auto) (0.1-1.2) X10*3/uL Eos # (Auto) (0.0-0.4) X10*3/uL Baso # (Auto) (0.0-0.2) X10*3/uL Abs Immat Gran (auto) (0.00-0.03) X10*3/uL Absolute Neuts (auto) (2.0-8.3) x10*3/uL Absolute Nucleated RBC (0.0-0.012) X10*3/uL Nucleated RBC % (auto) (0.0-0.2) /100WBC ESR (0-15) MM/HR PT (10.0-13.1) SEC INR (0.9-1.1) APTT (26.0-36.4) SEC D-Dimer High Sensitivty NG/ML Sodium (135-145) mmol/L Potassium (3.3-5.1) mmol/L Chloride (96-108) mmol/L Carbon Dioxide (22-29) mmol/L Anion Gap (12-20) BUN (9-16) mg/dL Creatinine (0.5-1.4) mg/dL Estim Creat Clear Calc Estimated GFR Random Glucose (60-115) mg/dL Calcium (8.4-10.2) mg/dL Magnesium (1.6-2.6) mg/dL Total Bilirubin (0.0-1.0) mg/dL Direct Bilirubin (0.0-0.5) mg/dL AST (5-37) U/L ALT (0-40) U/L Alkaline Phosphatase (39-117) U/L Troponin I High Sens (<3.5-35.0) ng/L C-Reactive Protein (< or = 0.50) mg/dL B-Natriuretic Peptide (<100) pg/mL Total Protein (6.5-8.0) g/dL Albumin (3.5-5.0) g/dL COVID-19 ([facility]) Negative (Negative) COVID-19 Clin Com See Note Discharge Plan Discharge Clinical Impression: Chest pain, Pericarditis Patient Disposition: Admitted As Inpatient Interventions: ED Discharge Assessment Last Done: 11/30/21 11:44 Discharge Date/Time: 11/30/21 11:44
--- NOTE | 2021-11-29 23:18 | PM.IMHP ---
History of Present Illness Date of Service: 11/29/21 Chief Complaint: chest pain 66-year-old male with past medical history of diabetes, diabetic neuropathy, left internal carotid artery stenosis, recent CAD status post NSTEMI status post stent placement on 11/27 to the circumflex artery on aspirin and Brilinta presents to the hospital with complaints of chest pain, she as well as shortness of breath. Patient reports that after being discharged from [facility] days ago he was doing well but he continued to have substernal heavy chest pain worse with deep inspiration as well as movement as well as shortness of breath, this chest pain is intermittent, and feels like discomfort/something sitting on his chest. contacted his PCP and was asked to come to the ED for further evaluation. He feels like there is still pressure in his abdomen, he is also complaining of intermittent dizziness especially when he is getting up from a seated position, he denies any headache, no palpitations, no abdominal pain nausea or vomiting, no diarrhea constipation, no urinary symptoms and no lower extremity edema. No orthopnea or PND. On arrival to the ED patient hemodynamically stable with a heart rate of 119 otherwise unremarkable vitals Labs are significant for WBC count of 9.3, ESR of 12, troponin of 198 increase to 230, BNP of 176, labs otherwise unremarkable CRP of 0.95. Chest CT angiogram showed no CT evidence of acute abnormality within the chest, no PE, cholelithiasis, tiny pulmonary nodules. Cardiology consulted, and recommended starting patient treatment for pericarditis an admission for further management Review of Systems Review of Systems: Yes all other systems are reviewed and are negative [facility] Medical History Gastroparesis Neuropathy Type 2 diabetes mellitus with unspecified complications Family History Mother CAD (coronary artery disease) Brother CAD (coronary artery disease) Surgical History H/O eye surgery Social History Alcohol intake: current Patient Tobacco Use Status: Never used Tobacco Advance Directives: Yes Advance Directives Information Provided: Yes Advance Directives on File: No service: No Current occupational status: employed Meds Allergies Allergy/AdvReac Type Severity Reaction Status Date / Time liraglutide [From VICTOZA] Allergy Unknown UNKNOWN Verified 11/29/21 15:44 Active Medications: Current Medications Acetaminophen (Acetaminophen 325 Mg Tablet) 650 mg PO Q6H PRN PRN Reason: Pain, Mild (Pain Scale 1-3) Colchicine (Colchicine 0.6 Mg Tablet) 0.6 mg PO BID [facility] Docusate Sodium (Docusate Sodium 100 Mg Capsule) 100 mg PO DAILY PRN PRN Reason: Constipation Enoxaparin Sodium (Enoxaparin Sodium 40 Mg/0.4 Ml Syringe) 40 mg SUBCUT Q24H [facility] Ibuprofen (Ibuprofen 600 Mg Tablet) 600 mg PO TID [facility] Omeprazole (Omeprazole 40 Mg Capsule.Dr) 40 mg PO BID@0630,1630 [facility] Ondansetron HCl (Ondansetron Hcl 4 Mg/2 Ml Vial) 4 mg IVPUSH Q8H PRN PRN Reason: Nausea and Vomiting Oxycodone HCl (Oxycodone Hcl Immed Release 5 Mg Tablet) 5 mg PO Q6H PRN PRN Reason: Pain, Severe (Pain Scale 7-10) Sodium Chloride (0.9 % Sodium Chloride Flush 3 Ml Syringe) 3 ml IVFLUSH QSHIFT [facility] Home Medications Medication Instructions Recorded Confirmed Last Taken Type buspirone 5 mg tablet 5 mg PO BID 07/04/21 11/26/21 07/04/21 08:00 History clonazepam 0.5 mg tablet 0.5 mg PO BID PRN Anxiety 07/04/21 11/26/21 07/04/21 08:00 History dulaglutide 1.5 mg/0.5 mL 0.5 ml subcut QWEEK 07/04/21 11/26/21 07/01/21 History subcutaneous pen injector (Trulicity) gabapentin 300 mg capsule 900 mg PO BID 07/04/21 11/26/21 07/04/21 08:00 History metoclopramide HCl 10 mg tablet 10 mg PO TID PRN STOMACH SPASMS 07/04/21 11/26/21 07/04/21 08:00 History omeprazole 20 mg tablet,delayed 20 mg PO BID 11/26/21 11/26/21 Unknown History release dextroamphetamine-amphetamine ER 1 cap PO BID 11/29/21 Unknown History 20 mg 24hr capsule,extend release insulin glargine 100 unit/mL (3 15 unit subcut BEDTIME 11/29/21 Unknown History mL) subcutaneous pen (Lantus Solostar U-100 Insulin) insulin lispro 100 unit/mL See Rx Instructions .Route .COMPLEX 11/29/21 Unknown History subcutaneous solution (Humalog U-100 Insulin) metoprolol succinate 25 mg 1 tab PO DAILY 11/29/21 Unknown History tablet,extended release 24 hr rosuvastatin 40 mg tablet 1 tab PO DAILY 11/29/21 Unknown History Physical Exam Vital Signs and Narrative: Vital Signs: Last Vital Signs Temp 98.1 F 11/29/21 15:44 Pulse 104 H 11/29/21 22:00 Resp 20 11/29/21 22:00 BP 126/66 11/29/21 22:00 Pulse Ox 99 11/29/21 22:00 O2 Del Method 11/29/21 22:00 BMI result Body Mass Index 26.7 Const: General: cooperative and no acute distress Orientation/consciousness: patient oriented x3 Eyes: General: appearance normal, both eyes and all related structures Resp: Effort & Inspection: normal respiratory effort Auscultation: clear to auscultation bilaterally Cardio: Rate: regular rate Rhythm: regular rhythm GI: Palpation (GI): Soft to palpation Auscultation: normal bowel sounds Skin: General skin exam: no rashes or lesions noted Neuro: General: patient oriented x3 Cognition (Neuro): normal cognition Extrem: General: Yes normal to inspection and Yes no pedal edema Results Labs CBC and Chem 7: 11/30/21 06:35 11/29/21 16:12 Labs: Laboratory Results - last 24 hr 11/29/21 11/29/21 11/29/21 16:12 16:12 16:12 MCV 81.5 MCH 28.0 MCHC 34.3 RDW 12.7 Plt Count 292 D MPV 9.1 L Immature Gran % (Auto) 0.4 Neut % (Auto) 70.3 Lymph % (Auto) 19.8 L Clare % (Auto) 8.5 Eos % (Auto) 0.6 Baso % (Auto) 0.4 Lymph # (Auto) 1.8 Clare # (Auto) 0.8 Eos # (Auto) 0.1 Baso # (Auto) 0.0 Abs Immat Gran (auto) 0.04 H Absolute Neuts (auto) 6.5 Absolute Nucleated RBC 0.000 Nucleated RBC % (auto) 0.0 PT INR APTT D-Dimer High Sensitivty Anion Gap 15 Estim Creat Clear Calc 65.5 Estimated GFR > 60 Random Glucose 185 H D Calcium 10.3 H D Magnesium 2.2 Total Bilirubin 0.6 Direct Bilirubin 0.2 AST 63 H ALT 56 H Alkaline Phosphatase 135 H B-Natriuretic Peptide 176 H Total Protein 7.8 Albumin 4.7 COVID-19 ([facility]) COVID-19 Clin Com 11/29/21 11/29/21 18:39 18:39 MCV MCH MCHC RDW Plt Count MPV Immature Gran % (Auto) Neut % (Auto) Lymph % (Auto) Clare % (Auto) Eos % (Auto) Baso % (Auto) Lymph # (Auto) Clare # (Auto) Eos # (Auto) Baso # (Auto) Abs Immat Gran (auto) Absolute Neuts (auto) Absolute Nucleated RBC Nucleated RBC % (auto) PT 10.9 INR 1.0 APTT 30.4 D-Dimer High Sensitivty 682 Anion Gap Estim Creat Clear Calc Estimated GFR Random Glucose Calcium Magnesium Total Bilirubin Direct Bilirubin AST ALT Alkaline Phosphatase B-Natriuretic Peptide Total Protein Albumin COVID-19 ([facility]) Negative COVID-19 Clin Com See Note ECG Interpretation: EKG shows sinus tachycardia with a heart rate in the 120s, with no significant ST T wave changes Imaging Radiologist's Impressions: Impressions Chest X-Ray 11/29/21 16:26 IMPRESSION: No acute cardiopulmonary process. Abdomen/Pelvis CT 11/29/21 20:43 IMPRESSION: 1. No CT evidence for acute abnormality within the chest, abdomen or pelvis. 2. No pulmonary embolus. 3. Cholelithiasis. 4. A few tiny pulmonary nodules are noted, largest measuring 6 mm. According to the UPDATED 2017 Fleischner Society recommendations, the advised follow-up imaging for multiple solid nodules, the largest measuring 6 mm or greater, is: LOW RISK PATIENT: CT at 3-6 months, then consider CT at 18-24 months. HIGH RISK PATIENT: CT at 3-6 months, then at 18-[address] examination was performed using dose optimization techniques as appropriate, variously including the following: *Automated exposure control *Adjustment of mA and/or kV according to patient size (this includes techniques or standardized protocols for targeted exams where dose is matched to indication/reason for exam; i.e. extremities or head) *Use of iterative reconstruction technique Chest CTA 11/29/21 20:43 IMPRESSION: 1. No CT evidence for acute abnormality within the chest, abdomen or pelvis. 2. No pulmonary embolus. 3. Cholelithiasis. 4. A few tiny pulmonary nodules are noted, largest measuring 6 mm. According to the UPDATED 2017 Fleischner Society recommendations, the advised follow-up imaging for multiple solid nodules, the largest measuring 6 mm or greater, is: LOW RISK PATIENT: CT at 3-6 months, then consider CT at 18-24 months. HIGH RISK PATIENT: CT at 3-6 months, then at 18-[address] examination was performed using dose optimization techniques as appropriate, variously including the following: *Automated exposure control *Adjustment of mA and/or kV according to patient size (this includes techniques or standardized protocols for targeted exams where dose is matched to indication/reason for exam; i.e. extremities or head) *Use of iterative reconstruction technique Assessment and Plan (1) Chest pain: Status: Acute (2) Pericarditis: Status: Acute Plan 66-year-old male with recent history of NSTEMI status post stent on 11/27 on Brilinta in ASA presents to the hospital with complaints of chest pain being admitted for possible pericarditis # acute pericarditis - chest pain - CTA shows no evidence of PE - EKG has nonspecific ST T wave changes - will start patient on colchicine, as well as Motrin - echocardiogram in a.m. - cardiology consulted # chest pain - likely secondary to above - has mildly elevated troponin with no delta - continue aspirin and Brilinta - metoprolol and statin - cardiology on consult # CAD s/p NSTEMI - continue ASA, Brilinta # diabetes - low-dose sliding scale insulin, continue home glargine - diabetic diet DVT prophylaxis: Lovenox Quality Stroke Does the patient have a stroke diagnosis?: No VTE Prior VTE?: No VTE Risk Level:: Medical - moderate - high VTE Device Contraindication: Treatment Not Indicated VTE Drug Contraindication: N/A - Med Ordered
[2021-11-29 23:20] LABS: C Reactive Protein 0.95 mg/dL (< or = 0.50)
[2021-11-29] MEDS: Ibuprofen 600 MG TABLET PO (23:52)
[2021-11-29 23:53] LABS: Erythrocyte Sedimentation Rate 12 MM/HR (0-15)
[2021-11-29] MEDS: Enoxaparin Sodium 40 MG/0.4 ML SYRINGE SUBCUT (23:53)
[2021-11-30] MEDS: Colchicine 0.6 MG TABLET PO ×2 (01:12→10:47)
[2021-11-30 06:42] LABS: MANUAL DIFF FLAG NO
[2021-11-30 06:48] LABS: Basophils Percent Auto 0.4 % (0-2); Eosinophils Absolute Auto 0.1 X10*3/uL (0.0-0.4); Eosinophils Percent Auto 0.9 % (0-4); Hemoglobin 15.4 g/dl (14.0-18.0); Imm Gran Abs Auto 0.03 X10*3/uL (0.00-0.03); Imm Gran Pct Auto 0.4 % (0.0-0.4); Lymphocytes Absolute Auto 2.1 X10*3/uL (1.2-4.9); Lymphocytes Percent Auto 27.8 % (20-40); Mean Corpuscular HGB Conc 34.2 g/dl (31.0-36.0); Mean Corpuscular Hemoglobin 28.4 pg (27.0-33.0); Mean Corpuscular Volume 82.9 fL (80.0-98.0); Mean Platelet Volume 9.2 fL (9.4-12.4); Monocytes Absolute Auto 0.7 X10*3/uL (0.1-1.2); Monocytes Percent Auto 9.1 % (2-11); Neutrophils Absolute Auto 4.6 x10*3/uL (2.0-8.3); Neutrophils Percent Auto 61.4 % (45-73); Platelet Count 227 X10*3/uL (160-400); Red Blood Count 5.43 X10*6/uL (4.60-5.80); Red Cell Distribution Width 12.7 % (11.0-16.0); White Blood Count 7.5 X10*3/uL (4.8-10.8)
--- NOTE | 2021-11-30 07:00 | CA_ITS ---
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 The calculated ejection fraction is 57% by biplane method. - The basal inferior segment is akinetic. - The basal inferoseptal segment is hypokinetic. Findings Left Ventricle Normal left ventricular cavity size. There is moderately increased left ventricular wall thickness. The left ventricular systolic function is normal. The calculated ejection fraction is 57% by biplane method. Wall Motion Rest Echo Findings The basal inferoseptal segment is hypokinetic. The basal inferior segment is akinetic. Pericardium/Pleural There is no evidence of pericardial effusion. Prior Study Comparison No significant change compared to prior study dated: 11/27/2021. On comparison of images, wall motion abnormality looks similar. Measurements 2D Linear Measurements IVSd: 1.32 0.6-0.9/0.6-1.0 cm LVIDd: 3.57 3.9-5.3/4.2-5.9 cm LVIDd Index: 1.89 2.4-3.2/2.2-3.1 cm/m2 LVIDs: 2.29 2.0-3.6 cm LVPWd: 1.36 0.7-1.1 cm LV Mass: 206.59 67-162/88-224 g LV Mass Index: 109.31 43-95/49-115 g/m2 2D Systolic Function EF 4C: 57.30 >55% EF 2C: 55.80 >55% EF BiP: 56.60 >55% Mitral Valve MV Pk E: 0.56 MV PK A: 0.81 MV Decel Time: 152.00 E/A: 0.70 E'Lateral: 8.16 E'Medial: 4.68 E/E' Med: 12.00 E/E' Lat: 6.90 PHT: 44.00 MVA PHT: 5.00 Decel Winston: 3.70 Diastolic Function MV Pk E: 0.56 MV Pk A: 0.81 E/A: 0.70 E'Medial: 4.68 E/E' Med: 12.00 E' Laterial: 8.16 E/E' Lat: 6.90 Updated in Other Vendor System with Status of Final Hardik Aranda MD electronically signed on 11/30/2021 12:10:48 PM with status of Final
[2021-11-30 07:22] LABS: Anion Gap 15 (12-20); Blood Urea Nitrogen 20 mg/dL (9-16); Calcium 8.9 mg/dL (8.4-10.2); Carbon Dioxide 23 mmol/L (22-29); Chloride 104 mmol/L (96-108); Creatinine Clr Calc Pharmacy 81.9; Estimated Glomerular Filt Rate > 60; Glucose Random 225 mg/dL (60-115); Potassium 3.9 mmol/L (3.3-5.1); Sodium 138 mmol/L (135-145)
[2021-11-30 07:37] LABS: Glucose, Whole Blood 276 mg/dL (60-115)
[2021-11-30] MEDS: Insulin Lispro 100 UNIT/ML 3 ML VIAL SUBCUT (07:41)
[2021-11-30] MEDS: Omeprazole 40 MG CAPSULE.DR PO (07:41)
[2021-11-30] MEDS: 0.9 % Sodium Chloride Flush 3 ML SYRINGE IVFLUSH (07:42)
--- NOTE | 2021-11-30 09:01 | MHC.CM.PN ---
CM met with Patient at bedside and addressed TANG with him, providing him with the original and placing a copy on the chart. 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 Patient has received Covid J&J & 1 BOOSTER and his PCP is DR. Balbir Farfan.Home/no services is the goal and CM has initiated and will follow for dc planning.
--- NOTE | 2021-11-30 09:45 | PM.CNCAR ---
History of Present Illness History of Present Illness Date of Service: 11/30/21 Chief complaint: Chest pain, Pericarditis Narrative: This is a cardiology consultation regarding chest pain. Patient was actually just seen in the hospital few days ago. He had non ST is myocardial infarction and transferred to [facility]. Then underwent circumflex artery stenting. He states that he felt immediately better and then went home and was actually feeling good for the 1st day or so. Subsequently, noticed discomfort again in the chest but this time a bit different. Every time was taking a breath it was hurting him. Also he felt that the chest itself is tender upon touch. Then he was sent to the ER again for workup and case was discussed with interventional cardiology who did the original stenting. Then it was felt that it could be rather pericarditis and then he was kept in the ER for further observation. He has been given NSAIDs. Today's states that he is totally pain free and back to normal. Otherwise, no other cardiac symptoms. Feeling good. Very comfortable during the conversation. Additionally, he underwent workup for pulmonary embolism but that was negative. Review of Systems Review of Systems: Yes all other systems are reviewed and are negative Constitutional: Constitutional: Reports as per HPI Eyes: Eyes: Reports as per HPI ENT: Reports as per HPI Cardiovascular: Cardiovascular: Reports as per HPI, Denies acrocyanosis, Denies cool extremities, Reports chest pain, Denies leg edema, Denies lightheadedness, Denies palpitations and Denies dyspnea Respiratory: Respiratory: Reports as per HPI, Reports no additional respiratory complaints and Denies dyspnea Gastrointestinal: Gastrointestinal: Reports as per HPI and Reports no additional gastrointestinal complaints Genitourinary: Genitourinary: Reports no additional male genitourinary complaints and Reports as per HPI Musculoskeletal: Musculoskeletal: Reports no additional musculoskeletal complaints and Reports as per HPI Integumentary/Breasts: Skin/Breast: Reports system reviewed and no additional complaints, except as docu Neurologic: Reports system reviewed and no additional complaints, except as documented and Reports as per HPI Psychiatric: Psychiatric: Reports no additional psychiatric complaints and Reports as per HPI Endocrine: Endocrine: Reports no additional endocrine complaints, Reports as per HPI and Denies palpitations Hematologic/Lymphatic: Hematologic/Lymphatic: Reports no additional hematologic/lymphatic complaints and Reports as per HPI Allergic/Immunologic: Allergic/Immunologic: Reports no additional allergic/immunologic complaints and Reports as per HPI [facility] Past Medical History Medical History (Updated 11/30/21 @ 09:48 by Hardik Aranda MD) Atherosclerotic cardiovascular disease Gastroparesis Neuropathy Type 2 diabetes mellitus with unspecified complications Family History Family History Mother CAD (coronary artery disease) Brother CAD (coronary artery disease) Surgical History Surgical History H/O eye surgery Social History Social History Alcohol intake: current Patient Tobacco Use Status: Never used Tobacco Advance Directives: Yes Advance Directives Information Provided: Yes Advance Directives on File: No service: No Current occupational status: employed Meds Allergies Allergy/AdvReac Type Severity Reaction Status Date / Time liraglutide [From VICTOZA] Allergy Unknown UNKNOWN Verified 11/29/21 15:44 Active Medications: Current Medications Acetaminophen (Acetaminophen 325 Mg Tablet) 650 mg PO Q6H PRN PRN Reason: Pain, Mild (Pain Scale 1-3) Aspirin (Aspirin Enteric Coated 81 Mg Tablet.) 81 mg PO DAILY [facility] Colchicine (Colchicine 0.6 Mg Tablet) 0.6 mg PO BID [facility] Last Admin: 11/30/21 01:12 Dose: 0.6 mg Dextrose (Dextrose 50 % 25 Gm/50 Ml Syringe) 25 gm IVPUSH Q15M PRN; Protocol PRN Reason: per Hypoglycemia Standing Ord. Docusate Sodium (Docusate Sodium 100 Mg Capsule) 100 mg PO DAILY PRN PRN Reason: Constipation Enoxaparin Sodium (Enoxaparin Sodium 40 Mg/0.4 Ml Syringe) 40 mg SUBCUT Q24H [facility] Last Admin: 11/29/21 23:53 Dose: 40 mg Glucose (Glucose Gel 15 Gm Gel..Gram.) 15 gm PO Q15M PRN; Protocol PRN Reason: per Hypoglycemia Standing Ord. Ibuprofen (Ibuprofen 600 Mg Tablet) 600 mg PO TID [facility] Last Admin: 11/29/21 23:52 Dose: 600 mg Insulin Human Lispro (Insulin Lispro 100 Unit/Ml 3 Ml Vial) 0 unit SUBCUT QIDACHS [facility]; Protocol Last Admin: 11/30/21 07:41 Dose: 6 unit Omeprazole (Omeprazole 40 Mg Capsule.) 40 mg PO BID@0630,1630 [facility] Last Admin: 11/30/21 07:41 Dose: 40 mg Omeprazole (Omeprazole 20 Mg Capsule.) 20 mg PO DAILY@0630 [facility] Ondansetron HCl (Ondansetron Hcl 4 Mg/2 Ml Vial) 4 mg IVPUSH Q8H PRN PRN Reason: Nausea and Vomiting Oxycodone HCl (Oxycodone Hcl Immed Release 5 Mg Tablet) 5 mg PO Q6H PRN PRN Reason: Pain, Severe (Pain Scale 7-10) Pharmacy Consult (Consult Rx Perform Med Rec) 1 each MISCELLANE ONCE PRN PRN Reason: Consult order Pharmacy Consult (Consult Rx Perform Med Rec) 1 each MISCELLANE ONCE PRN PRN Reason: Consult order Sodium Chloride (0.9 % Sodium Chloride Flush 3 Ml Syringe) 3 ml IVFLUSH QSHIFT [facility] Last Admin: 11/30/21 07:42 Dose: 3 ml Ticagrelor (Ticagrelor 90 Mg Tablet) 90 mg PO BID [facility] Home Medications Medication Instructions Recorded Confirmed Last Taken Type buspirone 5 mg tablet 5 mg PO BID 07/04/21 11/26/21 07/04/21 08:00 History clonazepam 0.5 mg tablet 0.5 mg PO BID PRN Anxiety 07/04/21 11/26/21 07/04/21 08:00 History dulaglutide 1.5 mg/0.5 mL 0.5 ml subcut QWEEK 07/04/21 11/26/21 07/01/21 History subcutaneous pen injector (Trulicity) gabapentin 300 mg capsule 900 mg PO BID 07/04/21 11/26/21 07/04/21 08:00 History metoclopramide HCl 10 mg tablet 10 mg PO TID PRN STOMACH SPASMS 07/04/21 11/26/21 07/04/21 08:00 History omeprazole 20 mg tablet,delayed 20 mg PO BID 11/26/21 11/26/21 Unknown History release dextroamphetamine-amphetamine ER 1 cap PO BID 11/29/21 Unknown History 20 mg 24hr capsule,extend release insulin glargine 100 unit/mL (3 15 unit subcut BEDTIME 11/29/21 Unknown History mL) subcutaneous pen (Lantus Solostar U-100 Insulin) insulin lispro 100 unit/mL See Rx Instructions .Route .COMPLEX 11/29/21 Unknown History subcutaneous solution (Humalog U-100 Insulin) metoprolol succinate 25 mg 1 tab PO DAILY 11/29/21 Unknown History tablet,extended release 24 hr rosuvastatin 40 mg tablet 1 tab PO DAILY 11/29/21 Unknown History Physical Exam Vital Signs: Vital Signs: Last Vital Signs Temp 98.1 F 11/29/21 15:44 Pulse 104 H 11/29/21 22:00 Resp 20 11/29/21 22:00 BP 126/66 11/29/21 22:00 Pulse Ox 99 11/29/21 22:00 O2 Del Method 11/29/21 22:00 BMI result Body Mass Index 26.7 Const: General: comfortable and no acute distress Orientation/consciousness: patient oriented x3 HEENT: Other: Unremarkable Head: Yes normal to inspection Neck: Neck: Yes normal visual inspection Chest: Chest palpation & inspection: normal inspection of the chest Resp: Auscultation: clear to auscultation bilaterally Cardio: Palpation: normal PMI Heart sounds: S1 normal heart sound present, S2 normal heart sound present, no gallops, no murmurs and no rubs GI: Palpation (GI): Soft to palpation Back/Spine/Pelvis: Other: unremarkable Skin: General skin exam: no rashes or lesions noted Neuro: General: patient oriented x3 Extrem: General: Yes normal to inspection Psych: Mental Status: mental status grossly normal Objective Labs and Meds Result diagrams: 11/30/21 06:35 11/30/21 06:35 Lab results: Laboratory Results - last 24 hr 11/29/21 11/29/21 11/29/21 16:12 16:12 16:12 WBC 9.3 RBC 6.11 H Hgb 17.1 Hct 49.8 MCV 81.5 MCH 28.0 MCHC 34.3 RDW 12.7 Plt Count 292 D MPV 9.1 L Immature Gran % (Auto) 0.4 Neut % (Auto) 70.3 Lymph % (Auto) 19.8 L [place] % (Auto) 8.5 Eos % (Auto) 0.6 Baso % (Auto) 0.4 Lymph # (Auto) 1.8 [place] # (Auto) 0.8 Eos # (Auto) 0.1 Baso # (Auto) 0.0 Abs Immat Gran (auto) 0.04 H Absolute Neuts (auto) 6.5 Absolute Nucleated RBC 0.000 Nucleated RBC % (auto) 0.0 ESR PT INR APTT D-Dimer High Sensitivty Sodium 139 Potassium 4.1 Chloride 104 Carbon Dioxide 24 Anion Gap 15 BUN 17 H Creatinine 1.05 Estim Creat Clear Calc 65.5 Estimated GFR > 60 POC Glucose Random Glucose 185 H D Calcium 10.3 H D Magnesium 2.2 Total Bilirubin 0.6 Direct Bilirubin 0.2 AST 63 H ALT 56 H Alkaline Phosphatase 135 H Troponin I High Sens 198.0 H* D C-Reactive Protein 0.95 H B-Natriuretic Peptide 176 H Total Protein 7.8 Albumin 4.7 COVID-19 ([facility]QUISE) COVID-19 FilmBreak 11/29/21 11/29/21 11/29/21 16:12 18:39 18:39 WBC RBC Hgb Hct MCV MCH MCHC RDW Plt Count MPV Immature Gran % (Auto) Neut % (Auto) Lymph % (Auto) [place] % (Auto) Eos % (Auto) Baso % (Auto) Lymph # (Auto) [place] # (Auto) Eos # (Auto) Baso # (Auto) Abs Immat Gran (auto) Absolute Neuts (auto) Absolute Nucleated RBC Nucleated RBC % (auto) ESR 12 PT 10.9 INR 1.0 APTT 30.4 D-Dimer High Sensitivty 682 Sodium Potassium Chloride Carbon Dioxide Anion Gap BUN Creatinine Estim Creat Clear Calc Estimated GFR POC Glucose Random Glucose Calcium Magnesium Total Bilirubin Direct Bilirubin AST ALT Alkaline Phosphatase Troponin I High Sens 230.0 H* C-Reactive Protein B-Natriuretic Peptide Total Protein Albumin COVID-19 (MARQUISE) COVID-19 FilmBreak 11/29/21 11/30/21 11/30/21 18:39 06:35 06:35 WBC 7.5 RBC 5.43 Hgb 15.4 Hct 45.0 MCV 82.9 MCH 28.4 MCHC 34.2 RDW 12.7 Plt Count 227 MPV 9.2 L Immature Gran % (Auto) 0.4 Neut % (Auto) 61.4 Lymph % (Auto) 27.8 [place] % (Auto) 9.1 Eos % (Auto) 0.9 Baso % (Auto) 0.4 Lymph # (Auto) 2.1 [place] # (Auto) 0.7 Eos # (Auto) 0.1 Baso # (Auto) 0.0 Abs Immat Gran (auto) 0.03 Absolute Neuts (auto) 4.6 Absolute Nucleated RBC 0.000 Nucleated RBC % (auto) 0.0 ESR PT INR APTT D-Dimer High Sensitivty Sodium 138 Potassium 3.9 Chloride 104 Carbon Dioxide 23 Anion Gap 15 BUN 20 H Creatinine 0.84 Estim Creat Clear Calc 81.9 Estimated GFR > 60 POC Glucose Random Glucose 225 H Calcium 8.9 D Magnesium Total Bilirubin Direct Bilirubin AST ALT Alkaline Phosphatase Troponin I High Sens C-Reactive Protein B-Natriuretic Peptide Total Protein Albumin COVID-19 ([facility]QUISE) Negative COVID-19 Clin Com See Note 11/30/21 07:32 WBC RBC Hgb Hct MCV MCH MCHC RDW Plt Count MPV Immature Gran % (Auto) Neut % (Auto) Lymph % (Auto) [place] % (Auto) Eos % (Auto) Baso % (Auto) Lymph # (Auto) [place] # (Auto) Eos # (Auto) Baso # (Auto) Abs Immat Gran (auto) Absolute Neuts (auto) Absolute Nucleated RBC Nucleated RBC % (auto) ESR PT INR APTT D-Dimer High Sensitivty Sodium Potassium Chloride Carbon Dioxide Anion Gap BUN Creatinine Estim Creat Clear Calc Estimated GFR POC Glucose 276 H Random Glucose Calcium Magnesium Total Bilirubin Direct Bilirubin AST ALT Alkaline Phosphatase Troponin I High Sens C-Reactive Protein B-Natriuretic Peptide Total Protein Albumin COVID-19 ([facility]QUISE) COVID-19 Clin Com ECG Interpretation: EKG with sinus tachycardia, 122/Min; possible old inferior infarct and nonspecific ST-T changes in anterior leads. Overall no major difference from before. Imaging Radiologist's impression: Impressions Chest X-Ray 11/29/21 16:26 IMPRESSION: No acute cardiopulmonary process. Abdomen/Pelvis CT 11/29/21 20:43 IMPRESSION: 1. No CT evidence for acute abnormality within the chest, abdomen or pelvis. 2. No pulmonary embolus. 3. Cholelithiasis. 4. A few tiny pulmonary nodules are noted, largest measuring 6 mm. According to the UPDATED 2017 Fleischner Society recommendations, the advised follow-up imaging for multiple solid nodules, the largest measuring 6 mm or greater, is: LOW RISK PATIENT: CT at 3-6 months, then consider CT at 18-24 months. HIGH RISK PATIENT: CT at 3-6 months, then at 18-[address] examination was performed using dose optimization techniques as appropriate, variously including the following: *Automated exposure control *Adjustment of mA and/or kV according to patient size (this includes techniques or standardized protocols for targeted exams where dose is matched to indication/reason for exam; i.e. extremities or head) *Use of iterative reconstruction technique Chest CTA 11/29/21 20:[address] IMPRESSION: 1[address] No CT evidence for acute abnormality within the chest, abdomen or pelvis. 2. No pulmonary embolus. 3. Cholelithiasis. 4. A few tiny pulmonary nodules are noted, largest measuring 6 mm. According to the UPDATED 2017 Fleischner Society recommendations, the advised follow-up imaging for multiple solid nodules, the largest measuring 6 mm or greater, is: LOW RISK PATIENT: CT at 3-6 months, then consider CT at 18-24 months. HIGH RISK PATIENT: CT at 3-6 months, then at 18-[address] examination was performed using dose optimization techniques as appropriate, variously including the following: *Automated exposure control *Adjustment of mA and/or kV according to patient size (this includes techniques or standardized protocols for targeted exams where dose is matched to indication/reason for exam; i.e. extremities or head) *Use of iterative reconstruction technique Assessment and Plan (1) Pericarditis: Status: Acute (2) Atherosclerotic cardiovascular disease: Status: Acute Plan Cardiac catheterization data reviewed. Distal circumflex had 90% stenosis. Stented. Mid LAD had 40% stenosis. Otherwise no significant disease. Recent echocardiogram with LVEF 58%. Basal inferior/inferoseptal hypokinesis. Chest CTA shows no acute abnormality. No pulmonary embolism. Troponins are 198 in 230. Her 2 days ago, it was as much as 911. Case discussed with Dr. Hoyos. It is felt that this is likely pericarditis. In fact is much better after receiving NSAIDs. As we can give a few days of the same. Otherwise continue aspirin and Brilinta. Proton pump inhibitors. With regard to abnormal LFTs, will need to be followed closely. May need to hold statins of the levels continue to go up. Discussed with Dr. Howell. Procedures Date of Service Date of Service: 11/30/21
[2021-11-30] MEDS: Ticagrelor 90 MG TABLET PO (09:53)
[2021-11-30] MEDS: Aspirin Enteric Coated 81 MG TABLET.DR PO (09:53)
[2021-11-30] MEDS: Ibuprofen 600 MG TABLET PO (09:54)
--- NOTE | 2021-11-30 11:03 | PHA.MEDREC ---
Pharmacy Consult ? Medication Reconciliation Pharmacy has completed the medication reconciliation. Patient confirmed medications. Karen Hicks, JsD
--- NOTE | 2021-11-30 11:19 | PM.DS ---
DS: Providers Provider Date of Service: 11/30/21 Date of admission: 11/29/21 23:06 Primary care physician: Balbir Farfan MD Consults: 11/29/21 23:06 Consult to Cardiology Routine Consulting Provider: Hardik Aranda Reason for consultation: pericarditis Has provider been notified: Yes DS: Diagnosis Discharge Diagnosis (1) Pericarditis: Status: Acute (2) Atherosclerotic cardiovascular disease: Status: Acute (3) Transaminitis: Status: Acute DS: Summary Hospital Course Hospital Course: Admission note HPI 66-year-old male with past medical history of diabetes, diabetic neuropathy, left internal carotid artery stenosis, recent CAD status post NSTEMI status post stent placement on 11/27 to the circumflex artery on aspirin and Brilinta presents to the hospital with complaints of chest pain, she as well as shortness of breath.? Patient reports that after being discharged from [facility] 2 days ago he was doing well but he continued to have substernal heavy chest pain worse with deep inspiration as well as movement as well as shortness of breath, this chest pain is intermittent, and feels like discomfort/something sitting on his chest.? contacted his PCP and was asked to come to the ED for further evaluation.? He feels like there is still pressure in his abdomen, he is also complaining of intermittent dizziness especially when he is getting up from a seated position, he denies any headache, no palpitations, no abdominal pain nausea or vomiting, no diarrhea constipation, no urinary symptoms and no lower extremity edema.? No orthopnea or PND.? On arrival to the ED patient hemodynamically stable with a heart rate of 119 otherwise unremarkable vitals Labs are significant for WBC count of 9.3, ESR of 12, troponin of 198 increase to 230, BNP of 176, labs otherwise unremarkable CRP of 0.95. Chest CT angiogram showed no CT evidence of acute abnormality within the chest, no PE, cholelithiasis, tiny pulmonary nodules. Cardiology consulted, and recommended starting patient treatment for pericarditis an admission for further management Hospital course The patient was admitted to the hospital for evaluation of chest pain. Images in the emergency including CTA were negative for any acute findings. Troponin was noted to mildly elevated but remain flat of 198-230. EKG showed some concerns of possible pericarditis. Received overall ibuprofen with good response as the pain almost resolved. Evaluated by support specialist who recommended continue aspirin and Brilinta and to treat with 1 week of NSAIDs. Noted to have elevated liver enzymes which will need close follow-up within the next week given the patient on statin. For the time being will continue with the statin. continue ibuprofen for the next week, can use extra doses for pain if needed Increase metoprolol to 50 mg daily To follow up with Cardiology within 2 weeks To repeat liver function test next week and follow-up result with PCP Time Spent with Patient Time attestation: Total time spent providing and/or coordinating discharge services: Discharge coordination time: Less than 30 minutes Quality: Safe Use of Opioids Does Pt have an Active Cancer Diagnosis on the Problem List?: No Quality: Stroke Does the patient have a stroke diagnosis?: No Physical Exam Vital Signs: Vital Signs: Last Vital Signs Temp 98.1 F 11/29/21 15:44 Pulse 104 H 11/29/21 22:00 Resp 20 11/29/21 22:00 BP 126/66 11/29/21 22:00 Pulse Ox 99 11/29/21 22:00 O2 Del Method 11/29/21 22:00 BMI result Body Mass Index 26.7 Const: Other: Constitutional : Alert, oriented, not in distress Neck : Normal inspection, Supple Cardiovascular : RRR, no JVP, no lower extremity edema Respiratory : fair bilateral air entry, no crackles, wheezes or rhonchi Gastrointestinal: soft, lax, Normal bowel sounds, Non tender Skin : Warm, Dry Neurological : Alert & oriented x3, No focal deficit , CN 2-12 within normal DS: Data Data Completed and Pending Labs on day of discharge: Laboratory Results - last 24 hr 11/29/21 11/29/21 11/29/21 16:12 16:12 16:12 WBC 9.3 RBC 6.11 H Hgb 17.1 Hct 49.8 MCV 81.5 MCH 28.0 MCHC 34.3 RDW 12.7 Plt Count 292 D MPV 9.1 L Immature Gran % (Auto) 0.4 Neut % (Auto) 70.3 Lymph % (Auto) 19.8 L [place] % (Auto) 8.5 Eos % (Auto) 0.6 Baso % (Auto) 0.4 Lymph # (Auto) 1.8 [place] # (Auto) 0.8 Eos # (Auto) 0.1 Baso # (Auto) 0.0 Abs Immat Gran (auto) 0.04 H Absolute Neuts (auto) 6.5 Absolute Nucleated RBC 0.000 Nucleated RBC % (auto) 0.0 ESR PT INR APTT D-Dimer High Sensitivty Sodium 139 Potassium 4.1 Chloride 104 Carbon Dioxide 24 Anion Gap 15 BUN 17 H Creatinine 1.05 Estim Creat Clear Calc 65.5 Estimated GFR > 60 POC Glucose Random Glucose 185 H D Calcium 10.3 H D Magnesium 2.2 Total Bilirubin 0.6 Direct Bilirubin 0.2 AST 63 H ALT 56 H Alkaline Phosphatase 135 H Troponin I High Sens 198.0 H* D C-Reactive Protein 0.95 H B-Natriuretic Peptide 176 H Total Protein 7.8 Albumin 4.7 COVID-19 (MARQUISE) COVID-19 [employer] 11/29/21 11/29/21 11/29/21 16:12 18:39 18:39 WBC RBC Hgb Hct MCV MCH MCHC RDW Plt Count MPV Immature Gran % (Auto) Neut % (Auto) Lymph % (Auto) [place] % (Auto) Eos % (Auto) Baso % (Auto) Lymph # (Auto) [place] # (Auto) Eos # (Auto) Baso # (Auto) Abs Immat Gran (auto) Absolute Neuts (auto) Absolute Nucleated RBC Nucleated RBC % (auto) ESR 12 PT 10.9 INR 1.0 APTT 30.4 D-Dimer High Sensitivty 682 Sodium Potassium Chloride Carbon Dioxide Anion Gap BUN Creatinine Estim Creat Clear Calc Estimated GFR POC Glucose Random Glucose Calcium Magnesium Total Bilirubin Direct Bilirubin AST ALT Alkaline Phosphatase Troponin I High Sens 230.0 H* C-Reactive Protein B-Natriuretic Peptide Total Protein Albumin COVID-19 (MARQUISE) COVID-19 [employer] 11/29/21 11/30/21 11/30/21 18:39 06:35 06:35 WBC 7.5 RBC 5.43 Hgb 15.4 Hct 45.0 MCV 82.9 MCH 28.4 MCHC 34.2 RDW 12.7 Plt Count 227 MPV 9.2 L Immature Gran % (Auto) 0.4 Neut % (Auto) 61.4 Lymph % (Auto) 27.8 [place] % (Auto) 9.1 Eos % (Auto) 0.9 Baso % (Auto) 0.4 Lymph # (Auto) 2.1 [place] # (Auto) 0.7 Eos # (Auto) 0.1 Baso # (Auto) 0.0 Abs Immat Gran (auto) 0.03 Absolute Neuts (auto) 4.6 Absolute Nucleated RBC 0.000 Nucleated RBC % (auto) 0.0 ESR PT INR APTT D-Dimer High Sensitivty Sodium 138 Potassium 3.9 Chloride 104 Carbon Dioxide 23 Anion Gap 15 BUN 20 H Creatinine 0.84 Estim Creat Clear Calc 81.9 Estimated GFR > 60 POC Glucose Random Glucose 225 H Calcium 8.9 D Magnesium Total Bilirubin Direct Bilirubin AST ALT Alkaline Phosphatase Troponin I High Sens C-Reactive Protein B-Natriuretic Peptide Total Protein Albumin COVID-19 (MARQUISE) Negative COVID-19 Clin Com See Note 11/30/21 07:32 WBC RBC Hgb Hct MCV MCH MCHC RDW Plt Count MPV Immature Gran % (Auto) Neut % (Auto) Lymph % (Auto) [place] % (Auto) Eos % (Auto) Baso % (Auto) Lymph # (Auto) [place] # (Auto) Eos # (Auto) Baso # (Auto) Abs Immat Gran (auto) Absolute Neuts (auto) Absolute Nucleated RBC Nucleated RBC % (auto) ESR PT INR APTT D-Dimer High Sensitivty Sodium Potassium Chloride Carbon Dioxide Anion Gap BUN Creatinine Estim Creat Clear Calc Estimated GFR POC Glucose 276 H Random Glucose Calcium Magnesium Total Bilirubin Direct Bilirubin AST ALT Alkaline Phosphatase Troponin I High Sens C-Reactive Protein B-Natriuretic Peptide Total Protein Albumin COVID-19 (MARQUISE) COVID-19 Clin Com Imaging Chest x-ray: Radiologist's impression: ITS Impressions Chest X-Ray 11/29/21 16:26 IMPRESSION: No acute cardiopulmonary process. Abdomen/Pelvis CT 11/29/21 20:43 IMPRESSION: 1. No CT evidence for acute abnormality within the chest, abdomen or pelvis. 2. No pulmonary embolus. 3. Cholelithiasis. 4. A few tiny pulmonary nodules are noted, largest measuring 6 mm. According to the UPDATED 2017 Fleischner Society recommendations, the advised follow-up imaging for multiple solid nodules, the largest measuring 6 mm or greater, is: LOW RISK PATIENT: CT at 3-6 months, then consider CT at 18-24 months. HIGH RISK PATIENT: CT at 3-6 months, then at 18-[address] examination was performed using dose optimization techniques as appropriate, variously including the following: *Automated exposure control *Adjustment of mA and/or kV according to patient size (this includes techniques or standardized protocols for targeted exams where dose is matched to indication/reason for exam; i.e. extremities or head) *Use of iterative reconstruction technique Chest CTA 11/29/21 20:[address]: [address] evidence for acute abnormality within the chest, abdomen or pelvis. 2. No pulmonary embolus. 3. Cholelithiasis. 4. A few tiny pulmonary nodules are noted, largest measuring 6 mm. According to the UPDATED 2017 Fleischner Society recommendations, the advised follow-up imaging for multiple solid nodules, the largest measuring 6 mm or greater, is: LOW RISK PATIENT: CT at 3-6 months, then consider CT at 18-24 months. HIGH RISK PATIENT: CT at 3-6 months, then at 18-[address] examination was performed using dose optimization techniques as appropriate, variously including the following: *Automated exposure control *Adjustment of mA and/or kV according to patient size (this includes techniques or standardized protocols for targeted exams where dose is matched to indication/reason for exam; i.e. extremities or head) *Use of iterative reconstruction technique Discharge Plan Discharge Patient Disposition: Home, Self-Care Discharge Diagnosis: Acute pericarditis Referrals: Balbir Farfan MD [Primary Care Provider] - 1 Week Discharge Medications: New ibuprofen 600 mg Tablet 600 mg PO BID 7 Days Qty: 14 0RF metoprolol succinate 50 mg tablet extended release 24 hr 50 mg PO DAILY Qty: 30 0RF Continued buspirone 5 mg tablet 5 mg PO BID clonazepam 0.5 mg tablet 0.5 mg PO BID PRN (Reason: Anxiety) metoclopramide HCl 10 mg tablet 10 mg PO TID PRN (Reason: STOMACH SPASMS) omeprazole 20 mg Tablet,Delayed Release (Dr/Ec) 20 mg PO BID acetaminophen 325 mg Tablet 650 mg PO Q6H PRN (Reason: Pain, Mild (Pain Scale 1-3)) Qty: 30 0RF aspirin 81 mg Tablet,Delayed Release (Dr/Ec) 81 mg PO DAILY Qty: 30 0RF dextroamphetamine-amphetamine 20 mg capsule,extended release 24hr 40 mg PO DAILY rosuvastatin 40 mg tablet 1 tab PO DAILY insulin glargine [Lantus Solostar U-100 Insulin] 100 unit/mL (3 mL) insulin pen 15 unit subcut BEDTIME insulin lispro [Humalog U-100 Insulin] 100 unit/mL solution See Rx Instructions .ROUTE .COMPLEX Protocol: Insulin Correction Scale Less than or equal to 110 ---- Give (units): 0 111 to 150 Give (units): 0 151 to 200 Give (units): 4 201 to 250 Give (units): 6 251 to 300 Give (units): 8 301 to 350 Give (units): 10 Greater than 350 Give (units): 12 Call MD if Blood Glucose > : 350 Rx Instructions: UP TO 15 UNITS TID WITH MEALS metformin 500 mg Tablet 1,000 mg PO BID ticagrelor 90 mg Tablet 90 mg PO BID Discontinued metoprolol succinate 25 mg tablet extended release 24 hr 1 tab PO DAILY Discharge Orders: Discharge Order (Routine); Ordered 11/30/21 Ordered By: Corie Howell Diet: Advance to usual diet Activity on Discharge: As tolerated Stand Alone Forms: Patient Portal Discharge page Other Ambulatory Orders: Liver Panel (Routine) Timeframe: 1 Week Facility: [facility] - Location: Laboratory Ordered By: Corie Howell Care Plan Goals: Read below Health Concerns: Read below Plan of Treatment: Read below Assessment: You were admitted to the hospital for evaluation of chest pain. Found to have an evidence of a problem called pericarditis. Treated with pain medications of ibuprofen with good response. Evaluated by support specialist who recommended increasing the metoprolol dose for better heart rate controlled. continue ibuprofen for the next week, can use extra doses for pain if needed Increase metoprolol to 50 mg daily To follow up with Cardiology within 2 weeks
--- NOTE | 2021-11-30 11:21 | MHC.CM.PN ---
Patient has been medically cleared for dc to home today, self care.
== END 2021-11-30 11:34 | disposition home or self-care (01) ==
LOC: HO.ED 21:00 → HO.EDOVER 23:22
PROVIDERS: Physician Assistant; Admitting Provider Internal Medicine; Emergency Provider Internal Medicine; PCP Family Medicine; Visit Provider Student in an Organized Health Care Education/Training Program
DX: I31.9 Disease of pericardium, unspecified (principal); R00.0 Tachycardia, unspecified; E11.9 Type 2 diabetes mellitus without complications; R10.32 Left lower quadrant pain; R07.89 Other chest pain; R74.01 Elevation of levels of liver transaminase levels; I25.10 Atherosclerotic heart disease of native coronary artery without angina pectoris; R06.02 Shortness of breath; Z79.4 Long term (current) use of insulin; Z20.822 Contact with and (suspected) exposure to COVID-19; Z79.899 Other long term (current) drug therapy
CPT/HCPCS: 36415; 71045; 71275; 74177; 80048; 80076; 82947; 83735; 83880; 84484; 85025; 85379; 85610; 85652; 85730; 86140; 87635; 93005; 93308; 96360; 96365; 96372; 96374; 96375; 96376; 99215; 99219; 99285; J1650; Q9957; Q9967

== ENCOUNTER 2021-12-07 19:53 | Emergency (ER) | payer MEDICARE, SELFPAY ==
--- NOTE | ~2021-12-07 | XR_ITS ---
EXAMINATION: XR CHEST CLINICAL INFORMATION: Chest pain COMPARISON: None TECHNIQUE: Frontal view of the chest was obtained. FINDINGS: No significant abnormality is noted involving the heart, lungs, mediastinum, bony thorax or soft tissues. XR/XR chest 1V IMPRESSION: Unremarkable examination.
[2021-12-07 19:59] VITALS: BP 143/49; PULSE 100; RESP 18; TEMP 36.8; O2SAT 96; BMI 27.7
--- NOTE | 2021-12-07 20:02 | ECG_ITS ---
Test Reason : SOB Blood Pressure : / mmHG Vent. Rate : 098 BPM Atrial Rate : 098 BPM P-R Int : 176 ms QRS Dur : 080 ms QT Int : 402 ms P-R-T Axes : 059 024 113 degrees QTc Int : 513 ms Normal sinus rhythm Cannot rule out Inferior infarct (cited on or before 29-NOV-2021) T wave abnormality, consider lateral ischemia Prolonged QT Abnormal ECG When compared with ECG of 29-NOV-2021 15:57, T wave inversion more evident in Anterior leads Referred By: Generic ED Physician Electronically Signed By:DANIELLE MÁRQUEZ MD
[2021-12-07 20:20] LABS: MANUAL DIFF FLAG NO
[2021-12-07 20:21] LABS: Basophils Percent Auto 0.5 % (0-2); Eosinophils Absolute Auto 0.1 X10*3/uL (0.0-0.4); Eosinophils Percent Auto 0.7 % (0-4); Hematocrit 45.7 % (42.0-52.0); Hemoglobin 15.7 g/dl (14.0-18.0); Imm Gran Abs Auto 0.03 X10*3/uL (0.00-0.03); Imm Gran Pct Auto 0.4 % (0.0-0.4); Lymphocytes Absolute Auto 1.4 X10*3/uL (1.2-4.9); Lymphocytes Percent Auto 16.8 % (20-40); Mean Corpuscular HGB Conc 34.4 g/dl (31.0-36.0); Mean Corpuscular Hemoglobin 28.2 pg (27.0-33.0); Mean Platelet Volume 9.1 fL (9.4-12.4); Monocytes Absolute Auto 0.7 X10*3/uL (0.1-1.2); Monocytes Percent Auto 7.8 % (2-11); Neutrophils Absolute Auto 6.1 x10*3/uL (2.0-8.3); Neutrophils Percent Auto 73.8 % (45-73); Platelet Count 265 X10*3/uL (160-400); Red Blood Count 5.57 X10*6/uL (4.60-5.80); Red Cell Distribution Width 12.7 % (11.0-16.0); White Blood Count 8.3 X10*3/uL (4.8-10.8)
[2021-12-07 20:36] LABS: Anion Gap 18 (12-20); Blood Urea Nitrogen 13 mg/dL (9-16); Calcium 9.2 mg/dL (8.4-10.2); Carbon Dioxide 22 mmol/L (22-29); Chloride 104 mmol/L (96-108); Creatinine Clr Calc Pharmacy 87.9; Estimated Glomerular Filt Rate > 60; Glucose Random 213 mg/dL (60-115); Potassium 3.7 mmol/L (3.3-5.1); Sodium 140 mmol/L (135-145)
[2021-12-07 20:55] VITALS: BP 122/56; PULSE 95; RESP 17; O2SAT 98
--- NOTE | 2021-12-07 21:18 | ED_ITS ---
HPI - Chest Pain General Chief Complaint: Chest Pain Stated Complaint: SOB/ stent placed on 11/27 Time Seen by Provider: 12/07/21 20:59 Source: patient Mode of arrival: ambulatory Limitations: no limitations History of Present Illness HPI narrative: patient comes to the emergency room complaining of substernal chest pressure. Patient states that the pain has been present for over a week. Of note, on 11/26/2021, patient had a STEMI, he received stents in the circumflex artery. After patient was discharged from [facility] for his cardiac cath, patient was discharged home. Two days later, on November 30, patient came to the emergency room complaining of similar chest pain. Patient was diagnosed with pericardi tis, given ibuprofen and patient started feeling better. CTA scan a week ago was negative for pulmonary embolism. However, the patient reports that since his discharge home, the chest pain has gradually become worse. Patient states that what really made him come today is shortness of breath with minimal exertion. Related Data Home Medications Medication Instructions Recorded Confirmed buspirone 5 mg tablet 5 mg PO BID 07/04/21 11/30/21 clonazepam 0.5 mg tablet 0.5 mg PO BID PRN Anxiety 07/04/21 11/30/21 metoclopramide HCl 10 mg tablet 10 mg PO TID PRN STOMACH SPASMS 07/04/21 11/30/21 omeprazole 20 mg tablet,delayed 20 mg PO BID 11/26/21 11/30/21 release dextroamphetamine-amphetamine ER 40 mg PO DAILY 11/29/21 11/30/21 20 mg 24hr capsule,extend release insulin glargine 100 unit/mL (3 15 unit subcut BEDTIME 11/29/21 11/30/21 mL) subcutaneous pen (Lantus Solostar U-100 Insulin) insulin lispro 100 unit/mL See Rx Instructions .Route .COMPLEX 11/29/21 11/30/21 subcutaneous solution (Humalog U-100 Insulin) rosuvastatin 40 mg tablet 1 tab PO DAILY 11/29/21 11/30/21 metformin 500 mg tablet 1,000 mg PO BID 11/30/21 11/30/21 ticagrelor 90 mg tablet 90 mg PO BID 11/30/21 11/30/21 Previous Rx's Medication Instructions Recorded acetaminophen 325 mg tablet 650 mg PO Q6H PRN Pain, Mild (Pain 11/27/21 Scale 1-3) #30 tabs aspirin 81 mg tablet,delayed 81 mg PO DAILY #30 tabs 11/27/21 release ibuprofen 600 mg tablet 600 mg PO BID 7 days #14 tabs 11/30/21 metoprolol succinate 50 mg 50 mg PO DAILY #30 tabs 11/30/21 tablet,extended release 24 hr Allergies Allergy/AdvReac Type Severity Reaction Status Date / Time liraglutide [From VICTOZA] Allergy Unknown UNKNOWN Verified 12/07/21 19:59 Review of Systems Review of Systems: Constitutional : No Weight loss, No Fever, No Chills, No Night Sweats, No Fatigue, No Malaise ENT/Mouth : No Hearing loss, No Ear Pain, No Nasal Congestion, No Sinus Pain, No Hoarseness, No sore throat, No Rhinorrhea, No Swallowing Difficulty Eyes: No Eye Pain, No Swelling, No Redness, No Foreign Body, No Discharge, No Vision Changes Cardiovascular : Complaining of substernal chest pain, shortness of breath with minimal exertion, continues pain even with leaning forward Respiratory : No Cough, No Sputum, No Wheezing, No Smoke Exposure, No Dyspnea Gastrointestinal : No Nausea, No Vomiting, No Diarrhea, No Constipation, No abdominal Pain, No Hematochezia, No Melena Genitourinary : no irregular bleeding, No Dysuria, No Urinary Frequency, No Hematuria, No Urinary Incontinence, No Urgency, No Flank Pain, No Urinary Flow Changes, No Hesitancy Musculoskeletal : No joint pain, No Myalgias, No Joint Swelling Skin : No Skin Lesions, No rash Neuro : No Weakness, No Numbness, No Paresthesias, No Loss of Consciousness, No Dizziness, No Headache Psych : No Anxiety/Panic, No Depression, No SI/HI/AH/VH, No Social Issues, Heme/Lymph: No Bruising, No Bleeding,No Lymphadenopathy Endocrine : No Polyuria, No Polydipsia, No Temperature Intolerance [facility] Past Medical History Medical History (Updated 12/08/21 @ 00:19 by Nicky Gan MD) Acute non-ST elevation myocardial infarction (NSTEMI) Atherosclerotic cardiovascular disease Chest pain Gastroparesis Neuropathy Pericarditis Type 2 diabetes mellitus with unspecified complications Surgical History H/O eye surgery Family History Family History Mother CAD (coronary artery disease) Brother CAD (coronary artery disease) Social History Social History Alcohol intake: current Alcohol intake frequency: holidays/special occasions o nly Patient Tobacco Use Status: Never used Tobacco Use of substances other than those prescribed or required for medical reasons: No Advance Directives: Yes Advance Directives on File: Yes Advance Directives Date on File: 11/30/21 service: No Current occupational status: employed Physical Exam Vital Signs: Vital Signs: Last Vital Signs Temp 98.0 F 12/08/21 00:11 Pulse 74 12/08/21 00:11 Resp 16 12/08/21 00:11 BP 124/70 12/08/21 00:11 Pulse Ox 96 12/08/21 00:11 O2 Del Method 12/08/21 00:11 BMI result Body Mass Index 27.7 Const: Other: Appearance: Alert. Oriented X3. No acute distress. Well-appearing Eyes: Pupils equal, round and reactive to light. ENT: Pharynx normal. Neck: Normal inspection. Neck supple. No lymph nodes noted. No crepitus CVS: Normal heart rate and rhythm. Pulses normal. Normal S1 and S2, no reproducible chest pain on palpation Respiratory: No respiratory distress. Breath sounds normal. No Wheezing. No rales Abdomen: Soft and nontender. No rigidity. No distention. Skin: Skin warm and dry. Normal skin color. Normal skin turgor. Extremities: No lower extremity edema. No Lacerations. No Rash Neuro: Oriented X 3. No motor deficit. No sensory deficit. Moving all extremities. No slurred speech. CN 2 through 12 grossly intact Psych: calm, cooperative, normal affect Course Course Course Narrative: Patient given full-dose aspirin in the ED EKG from today shows no EKG changes from November 30. Troponin pending. BNP at baseline at 106, chest x-ray negative for any acute process Patient's troponin x2 are negative, EKG showed no acute changes. Patient was able to walk around the emergency room, saturating at 97%. Patient did not report any dizziness or shortness of breath. At this time, patient feels very well, ready for discharge. 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 Patient's vitals are normal, pulmonary embolism not suspected. Patient is on aspirin and Brilinta, states he is compliant with his medication. MDM - Chest Pain Lab Data Result diagrams: 12/07/21 20:06 12/07/21 20:06 Labs: Lab Results 12/07/21 12/07/21 12/07/21 Range/Units 20:06 20:06 20:06 WBC 8.3 (4.8-10.8) X10*3/uL RBC 5.57 (4.60-5.80) X10*6/uL Hgb 15.7 (14.0-18.0) g/dl Hct 45.7 (42.0-52.0) % MCV 82.0 (80.0-98.0) fL MCH 28.2 (27.0-33.0) pg MCHC 34.4 (31.0-36.0) g/dl RDW 12.7 (11.0-16.0) % Plt Count 265 (160-400) X10*3/uL MPV 9.1 L (9.4-12.4) fL Immature Gran % (Auto) 0.4 (0.0-0.4) % Neut % (Auto) 73.8 H (45-73) % Lymph % (Auto) 16.8 L (20-40) % [place] % (Auto) 7.8 (2-11) % Eos % (Auto) 0.7 (0-4) % Baso % (Auto) 0.5 (0-2) % Lymph # (Auto) 1.4 (1.2-4.9) X10*3/uL [place] # (Auto) 0.7 (0.1-1.2) X10*3/uL Eos # (Auto) 0.1 (0.0-0.4) X10*3/uL Baso # (Auto) 0.0 (0.0-0.2) X10*3/uL Abs Immat Gran (auto) 0.03 (0.00-0.03) X10*3/uL Absolute Neuts (auto) 6.1 (2.0-8.3) x10*3/uL Absolute Nucleated RBC 0.000 (0.0-0.012) X10*3/uL Nucleated RBC % (auto) 0.0 (0.0-0.2) /100WBC Sodium 140 (135-145) mmol/L Potassium 3.7 (3.3-5.1) mmol/L Chloride 104 (96-108) mmol/L Carbon Dioxide 22 (22-29) mmol/L Anion Gap 18 (12-20) BUN 13 (9-16) mg/dL Creatinine 0.85 (0.5-1.4) mg/dL Estim Creat Clear Calc 87.9 Estimated GFR > 60 Random Glucose 213 H (60-115) mg/dL Calcium 9.2 (8.4-10.2) mg/dL Total Bilirubin 0.6 (0.0-1.0) mg/dL Direct Bilirubin 0.2 (0.0-0.5) mg/dL AST 25 D (5-37) U/L ALT 45 H (0-40) U/L Alkaline Phosphatase 98 D (39-117) U/L Troponin I High Sens 22.9 D (<3.5-35.0) ng/L B-Natriuretic Peptide 106 H (<100) pg/mL Total Protein 7.3 (6.5-8.0) g/dL Albumin 4.5 (3.5-5.0) g/dL COVID-19 ([facility]) (Negative) COVID-19 Clin Com 12/07/21 12/07/21 Range/Units 21:20 23:38 WBC (4.8-10.8) X10*3/uL RBC (4.60-5.80) X10*6/uL Hgb (14.0-18.0) g/dl Hct (42.0-52.0) % MCV (80.0-98.0) fL MCH (27.0-33.0) pg MCHC (31.0-36.0) g/dl RDW (11.0-16.0) % Plt Count (160-400) X10*3/uL MPV (9.4-12.4) fL Immature Gran % (Auto) (0.0-0.4) % Neut % (Auto) (45-73) % Lymph % (Auto) (20-40) % [place] % (Auto) (2-11) % Eos % (Auto) (0-4) % Baso % (Auto) (0-2) % Lymph # (Auto) (1.2-4.9) X10*3/uL [place] # (Auto) (0.1-1.2) X10*3/uL Eos # (Auto) (0.0-0.4) X10*3/uL Baso # (Auto) (0.0-0.2) X10*3/uL Abs Immat Gran (auto) (0.00-0.03) X10*3/uL Absolute Neuts (auto) (2.0-8.3) x10*3/uL Absolute Nucleated RBC (0.0-0.012) X10*3/uL Nucleated RBC % (auto) (0.0-0.2) /100WBC Sodium (135-145) mmol/L Potassium (3.3-5.1) mmol/L Chloride (96-108) mmol/L Carbon Dioxide (22-29) mmol/L Anion Gap (12-20) BUN (9-16) mg/dL Creatinine (0.5-1.4) mg/dL Estim Creat Clear Calc Estimated GFR Random Glucose (60-115) mg/dL Calcium (8.4-10.2) mg/dL Total Bilirubin (0.0-1.0) mg/dL Direct Bilirubin (0.0-0.5) mg/dL AST (5-37) U/L ALT (0-40) U/L Alkaline Phosphatase (39-117) U/L Troponin I High Sens 30.4 (<3.5-35.0) ng/L B-Natriuretic Peptide (<100) pg/mL Total Protein (6.5-8.0) g/dL Albumin (3.5-5.0) g/dL COVID-19 ([facility]ISE) Negative (Negative) COVID-19 Clin Com See Note Discharge Plan Discharge Clinical Impression: Exertional dyspnea Patient Disposition: Home, Self-Care Instructions: Dyspnea (ED) Additional Instructions: Please follow-up with your primary care physician tomorrow. If you have any worsening or new symptoms, please return to the emergency room or call 911 Prescriptions: No Action buspirone 5 mg tablet 5 mg PO BID clonazepam 0.5 mg tablet 0.5 mg PO BID PRN (Reason: Anxiety) metoclopramide HCl 10 mg tablet 10 mg PO TID PRN (Reason: STOMACH SPASMS) omeprazole 20 mg Tablet,Delayed Release (Dr/Ec) 20 mg PO BID acetaminophen 325 mg Tablet 650 mg PO Q6H PRN (Reason: Pain, Mild (Pain Scale 1-3)) Qty: 30 0RF aspirin 81 mg Tablet,Delayed Release (Dr/Ec) 81 mg PO DAILY Qty: 30 0RF dextroamphetamine-amphetamine 20 mg capsule,extended release 24hr 40 mg PO DAILY rosuvastatin 40 mg tablet 1 tab PO DAILY insulin glargine [Lantus Solostar U-100 Insulin] 100 unit/mL (3 mL) insulin pen 15 unit subcut BEDTIME insulin lispro [Humalog U-100 Insulin] 100 unit/mL solution See Rx Instructions .ROUTE .COMPLEX Protocol: Insulin Correction Scale Less than or equal to 110 ---- Give (units): 0 111 to 150 Give (units): 0 151 to 200 Give (units): 4 201 to 250 Give (units): 6 251 to 300 Give (units): 8 301 to 350 Give (units): 10 Greater than 350 Give (units): 12 Call MD if Blood Glucose > : 350 Rx Instructions: UP TO 15 UNITS TID WITH MEALS metformin 500 mg Tablet 1,000 mg PO BID ticagrelor 90 mg Tablet 90 mg PO BID ibuprofen 600 mg Tablet 600 mg PO BID 7 Days Qty: 14 0RF metoprolol succinate 50 mg tablet extended release 24 hr 50 mg PO DAILY Qty: 30 0RF Referrals: Hardik Aranda MD [Physician] - 12/10/21 10:00 am
[2021-12-07 21:40] LABS: Alanine Aminotransferase 45 U/L (0-40); Albumin Level 4.5 g/dL (3.5-5.0); Alkaline Phosphatase 98 U/L (39-117); Aspartate Amino Transferase 25 U/L (5-37); Bilirubin Direct 0.2 mg/dL (0.0-0.5); Bilirubin Total 0.6 mg/dL (0.0-1.0); Total Protein 7.3 g/dL (6.5-8.0)
[2021-12-07 21:41] LABS: COVID-19 Test Negative (Negative); IDNOW Serial# 55D5AD1C
[2021-12-07 21:47] LABS: B Type Natriuretic Peptide 106 pg/mL (<100); Troponin-I High Sensitivity 22.9 ng/L (<3.5-35.0)
[2021-12-07] MEDS: Aspirin Enteric Coated 325 MG TABLET.DR PO (22:00)
[2021-12-08 00:01] LABS: Troponin-I High Sensitivity 30.4 ng/L (<3.5-35.0)
[2021-12-08 00:11] VITALS: BP 124/70; PULSE 74; RESP 16; TEMP 36.7; O2SAT 96
[2021-12-08 00:41] VITALS: BP 130/60; PULSE 94; RESP 16; O2SAT 96
== END 2021-12-08 00:47 | disposition home or self-care (01) ==
PROVIDERS: Emergency Provider Emergency Medicine; PCP Family Medicine
DX: R06.02 Shortness of breath (principal); R07.89 Other chest pain; Z79.899 Other long term (current) drug therapy; Z20.822 Contact with and (suspected) exposure to COVID-19
CPT/HCPCS: 36415; 71045; 80048; 80076; 83880; 84484; 85025; 87635; 93005; 99284; 99285

== ENCOUNTER → 2021-12-31 12:59 | Outpatient (BNVA) | payer MEDICARE, OTHER, SELFPAY | PROVIDERS: PCP Family Medicine; Visit Provider Internal Medicine | DX: I25.10 Atherosclerotic heart disease of native coronary artery without angina pectoris (principal); I65.23 Occlusion and stenosis of bilateral carotid arteries; I31.9 Disease of pericardium, unspecified; E11.8 Type 2 diabetes mellitus with unspecified complications; E78.5 Hyperlipidemia, unspecified; Z95.5 Presence of coronary angioplasty implant and graft; Z79.899 Other long term (current) drug therapy; Z79.4 Long term (current) use of insulin | CPT/HCPCS: 99212 ==

== ENCOUNTER → 2022-03-25 13:43 | Outpatient (BNVA) | payer MEDICARE, OTHER, SELFPAY | PROVIDERS: PCP Family Medicine; Visit Provider Internal Medicine | DX: I25.10 Atherosclerotic heart disease of native coronary artery without angina pectoris (principal); I65.22 Occlusion and stenosis of left carotid artery; E11.8 Type 2 diabetes mellitus with unspecified complications; E78.5 Hyperlipidemia, unspecified | CPT/HCPCS: 99212 ==

== ENCOUNTER 2022-10-01 08:25 | Outpatient (REF) | payer MEDICARE, OTHER, SELFPAY ==
--- NOTE | ~2022-10-01 | US_ITS ---
EXAMINATION: US EXTRACRANIAL CAROTID DUPLEX, BILATERAL CLINICAL INFORMATION: Occlusion and stenosis of bilateral carotid arteries COMPARISON: Previous carotid ultrasound November 2021 TECHNIQUE: Real-time ultrasound and Doppler techniques (integrating B-mode 2-D vascular images, Doppler spectral analysis and color-flow Doppler imaging) were utilized to interrogate the extracranial carotid arteries, the vertebral arteries and proximal subclavian arteries bilaterally. The degree of stenosis is determined by criteria similar to NASCET. FINDINGS: Right Side: 1. There is mild to moderate atherosclerotic plaque seen in the bifurcation/proximal ICA region. 2. The common carotid artery PSV proximally is 76 cm/s and distally 54 cm/s. 3. The proximal internal carotid artery velocities are 55 cm/s systolic and 13 cm/s diastolic. 4. The proximal external carotid artery PSV is 122 cm/s. 5. The vertebral artery shows antegrade flow. 6. The subclavian artery waveforms are normal. Left Side: 1. There is moderate atherosclerotic plaque seen in the bifurcation/proximal ICA region. 2. The common carotid artery PSV proximally is 89 cm/s and distally 58 cm/s. 3. The proximal internal carotid artery velocities are 217 cm/s systolic and 54 cm/s diastolic. 4. The proximal external carotid artery PSV is 184 cm/s. 5. The vertebral artery shows antegrade flow. 6. The subclavian artery waveforms are normal. US/US carotid duplex BI IMPRESSION: 1. RIGHT: Minimal, non-hemodynamically significant stenosis of the proximal right internal carotid artery corresponding to a 0-49% stenosis by velocity criteria. 2. LEFT: Moderate, hemodynamically significant stenosis of the proximal left internal carotid artery corresponding to a 50-79% stenosis by velocity criteria. Compared to November 2021 exam there is decreased peak systolic velocity in the bilateral subclavian arteries which no longer appear elevated.
== END 2022-10-01 08:26 | disposition home or self-care (01) ==
LOC: HO.HMGCX 08:25
PROVIDERS: PCP Family Medicine; Visit Provider Internal Medicine
DX: I65.23 Occlusion and stenosis of bilateral carotid arteries (principal); I25.10 Atherosclerotic heart disease of native coronary artery without angina pectoris
CPT/HCPCS: 93880

== ENCOUNTER 2022-11-26 14:24 | Outpatient (AMB) | payer MEDICARE, OTHER, SELFPAY ==
--- NOTE | 2022-11-26 14:25 | MHC.OFFVIS ---
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 Accompanied by: Spouse Allergies liraglutide [From VICTOZA] Allergy (Unknown, Verified 11/26/22 14:28) UNKNOWN Medication List - Last Reconciled 11/26/22 by Hardik Aranda MD aspirin 81 mg PO DAILY buspirone 5 mg PO BID clonazepam 0.5 mg PO BID PRN clopidogrel (Plavix) 75 mg PO DAILY dextroamphetamine-amphetamine 20 mg ER 40 mg PO DAILY insulin glargine (Lantus Solostar U-100 Insulin) 15 units subcut BEDTIME insulin lispro (Humalog U-100 Insulin) See Protocol UP TO 15 UNITS TID WITH MEALS metformin 1,000 mg PO BID metformin 1,000 mg PO BID metoclopramide HCl 10 mg PO TID PRN metoprolol succinate ER 50 mg PO DAILY omeprazole 20 mg PO BID rosuvastatin 40 mg PO DAILY HPI HPI Comments History of Present Illness Details Jamal returns for follow-up. He has a history of diabetes for more than 20 years. On insulin. Presented with abdominal symptoms including nausea, constipation, cramping, diaphoresis but no clear chest pain. He had elevated troponin suggestive of non ST elevation myocardial infarction. Echocardiogram with basal inferior/inferoseptal hypokinesis. Subsequently transferred to [facility] for cardiac catheterization. Underwent circumflex stenting. Subsequently, another hospitalization where he was thought to have probably pericarditis. Then given NSAIDs. Overall, he is doing good. No complaints like angina or shortness of breath or in fact anything cardiac sounding. Seems to be getting along fine. [facility] Medical History (Updated 03/25/22 @ 14:31 by Hardik Aranda MD) Acute non-ST elevation myocardial infarction (NSTEMI) Atherosclerotic cardiovascular disease Chest pain Gastroparesis Left carotid artery stenosis Neuropathy Pericarditis Type 2 diabetes mellitus with unspecified complications Surgical History H/O eye surgery Family History Mother CAD (coronary artery disease) Brother CAD (coronary artery disease) Social History Alcohol intake: current Alcohol intake frequency: holidays/special occasions only Patient Tobacco Use Status: Never used Tobacco Advance Directives Date on File: 11/30/21 service: No Current occupational status: employed Review of Systems Const Denies weakness ENT Denies dizziness Card Denies chest pain, Denies chest pain with activity, Denies syncope, Denies rapid heart rate, Denies pedal edema, Denies edema, Denies leg edema, Denies lightheadedness, Denies palpitations, Denies dyspnea, Denies dyspnea on exertion and Denies orthopnea Resp Denies cough, Denies dyspnea and Denies dyspnea on exertion GI Denies hematochezia and Denies change in stool character Musc Denies abnormal gait, Denies muscle cramps, Denies muscle weakness, Denies numbness, Denies radiating pain into limb and Denies tingling Neuro Denies abnormal gait, Denies dizziness, Denies syncope, Denies numbness, Denies tingling and Denies weakness Endo Denies palpitations Physical Exam Vital Signs: Last Vital Signs Pulse 108 H 11/26/22 14:27 BP 140/70 H 11/26/22 14:27 BMI result Body Mass Index 32.5 Const General: comfortable and no acute distress Orientation/consciousness: patient oriented x3 HEENT Other: Unremarkable Head: Yes normal to inspection Neck Neck: Yes normal visual inspection Chest Chest palpation & inspection: normal inspection of the chest Resp Auscultation: clear to auscultation bilaterally Cardio Palpation: normal PMI Heart sounds: S1 normal heart sound present, S2 normal heart sound present, no gallops, no murmurs and no rubs GI Palpation (GI): Soft to palpation Back/Spine/Pelvis Other: unremarkable Skin General skin exam: no rashes or lesions noted Neuro General: patient oriented x3 Extrem General: Yes normal to inspection Psych Mental Status: mental status grossly normal Assessment & Plan Assessment & Plan (1) Atherosclerotic cardiovascular disease: Code(s): I25.10 - Atherosclerotic heart disease of [place] coronary artery without angina pectoris Plan: Cardiac catheterization data reviewed from 11/2021. Distal circumflex had 90% stenosis, status post stenting. Mid LAD with 40% stenosis. No significant disease elsewhere. Continue aspirin. Stop the Plavix. Continue statins. Last LDL 28 mg/dL. Triglycerides 181 mg/dL. LFTs are okay. (2) Left carotid artery stenosis: Code(s): I65.22 - Occlusion and stenosis of left carotid artery Plan: In the most recent carotid ultrasound, left-sided stenosis, 50-79%. Right-sided 0-49%. Overall, no major change compared to before. We will repeat in 1 year. Aggressive risk factor modification. Results discussed. (3) Type 2 diabetes mellitus with unspecified complications: Code(s): E11.8 - Type 2 diabetes mellitus with unspecified complications Plan: On insulin, metformin. Last hemoglobin A1c on the higher side at 9.4%. (4) Other and unspecified hyperlipidemia: Code(s): E78.5 - Hyperlipidemia, unspecified Plan: Continue statins. Will controlled. Medications: Discontinued clopidogrel (Plavix) Discontinued Reason: Doctor's Order 75 mg PO DAILY 90 tabs 3RF Coding Level of Care Code Est Pt Level 4 (41691) Diagnoses Atherosclerotic cardiovascular disease I25.10 Left carotid artery stenosis I65.22 Type 2 diabetes mellitus with unspecified complications E11.8 Other and unspecified hyperlipidemia E78.5
[2022-11-26 14:27] VITALS: BP 140/70; PULSE 108; BMI 32.5
== END 2022-11-26 14:50 | disposition home or self-care (01) ==
PROVIDERS: Visit Provider Internal Medicine
DX: I25.10 Atherosclerotic heart disease of native coronary artery without angina pectoris (principal); I65.22 Occlusion and stenosis of left carotid artery; E11.8 Type 2 diabetes mellitus with unspecified complications; E78.5 Hyperlipidemia, unspecified
CPT/HCPCS: 93010; 99214

== ENCOUNTER → 2022-11-26 14:24 | Outpatient (BNVA) | payer MEDICARE, OTHER, SELFPAY | PROVIDERS: Visit Provider Internal Medicine | DX: I25.10 Atherosclerotic heart disease of native coronary artery without angina pectoris (principal); I65.22 Occlusion and stenosis of left carotid artery; E78.5 Hyperlipidemia, unspecified; E11.8 Type 2 diabetes mellitus with unspecified complications; Z79.4 Long term (current) use of insulin; Z79.82 Long term (current) use of aspirin; Z79.899 Other long term (current) drug therapy | CPT/HCPCS: 93005; 99212 ==

== ENCOUNTER 2022-12-28 14:44 | Emergency (ER) | payer MEDICARE, OTHER, SELFPAY ==
--- NOTE | ~2022-12-28 | XR_ITS ---
EXAMINATION: XR ANKLE, RIGHT CLINICAL INFORMATION: Injury COMPARISON: None available. TECHNIQUE: AP, lateral, and mortise views of the right ankle. 3 views FINDINGS: Mildly displaced avulsion fracture from the tip of the medial malleolus with a cap of the fracture site approximately 4 mm. Nondisplaced oblique fracture of the distal fibula above the ankle mortise. Talus and talar dome are intact, subtalar joint is normal. There is a small posterior calcaneal spur. XR/XR ankle RT min 3V IMPRESSION: - Mildly displaced avulsion fracture from the tip of the medial malleolus. - Nondisplaced oblique fracture of the distal fibula above the ankle mortise.
--- NOTE | 2022-12-28 14:53 | ED_ITS ---
HPI - Extremity Injury (Lower) General Chief Complaint: Extremity Injury, Lower Stated Complaint: R ankle injury/ fell Time Seen by Provider: 12/28/22 15:23 Source: patient Mode of arrival: ambulatory Limitations: no limitations History of Present Illness HPI Narrative: Patient is a 67-year-old male presenting to the emergency department with complaint of right ankle pain and swelling after slipping and falling on a rug prior to arrival. Complains of pain and swelling to entire right ankle. States has been developing tingling since arrival to the ED. He reports landing on his right side, states he did hit his head but denies any loss of consciousness. Denies any headache or changes in vision. He is not anticoagulated. He denies any dizziness or lightheadedness. Denies neck or back pain. He reports that he was on his way to Urgent Care at the time of his fall for evaluation of a rash to his abdomen. Patient reports erythema and foul odor in area of Tegaderm covering his glucose monitor. MD complaint: ankle injury Onset (ago): hour(s) Injury: Right: ankle Place: home Severity: severe Relieving factors: nothing Exacerbating factors: weight bearing and palpation Context: fall Associated symptoms: swelling and tingling Other symptoms: none Related Data Home Medications Medication Instructions Recorded Confirmed buspirone 5 mg tablet 5 mg PO BID 07/04/21 11/26/22 clonazepam 0.5 mg tablet 0.5 mg PO BID PRN Anxiety 07/04/21 11/26/22 metoclopramide HCl 10 mg tablet 10 mg PO TID PRN STOMACH SPASMS 07/04/21 11/26/22 omeprazole 20 mg tablet,delayed 20 mg PO BID 11/26/21 11/26/22 release dextroamphetamine-amphetamine ER 40 mg PO DAILY 11/29/21 11/26/22 20 mg 24hr capsule,extend release insulin glargine 100 unit/mL (3 15 unit subcut BEDTIME 11/29/21 11/26/22 mL) subcutaneous pen (Lantus Solostar U-100 Insulin) insulin lispro 100 unit/mL See Rx Instructions .Route .COMPLEX 11/29/21 11/26/22 subcutaneous solution (Humalog U-100 Insulin) metformin 1,000 mg tablet 1,000 mg PO BID 11/26/22 11/26/22 metformin 500 mg tablet 1,000 mg PO BID 11/26/22 11/26/22 Previous Rx's Medication Instructions Recorded aspirin 81 mg tablet,delayed 81 mg PO DAILY #90 tabs 12/31/21 release metoprolol succinate 50 mg 50 mg PO DAILY #90 tabs 12/31/21 tablet,extended release 24 hr rosuvastatin 40 mg tablet 40 mg PO DAILY #90 tabs 12/31/21 clotrimazole 1 % topical cream 1 appl topical BID 2 weeks #15 12/28/22 grams tramadol 50 mg tablet 50 mg PO Q8H PRN pain #9 tabs 12/28/22 Allergies Allergy/AdvReac Type Severity Reaction Status Date / Time liraglutide [From VICTOZA] Allergy Unknown UNKNOWN Verified 12/28/22 15:01 Review of Systems Review of Systems: As per HPI. Yes all other systems are reviewed and are negative Constitutional: Constitutional: Reports as per HPI [facility] Past Medical History Medical History (Updated 12/28/22 @ 16:49 by Devorah Field NP) Acute non-ST elevation myocardial infarction (NSTEMI) Atherosclerotic cardiovascular disease Chest pain Gastroparesis Left carotid artery stenosis Neuropathy Pericarditis Type 2 diabetes mellitus with unspecified complications Surgical History H/O eye surgery Family History Family History Mother CAD (coronary artery disease) Brother CAD (coronary artery disease) Social History Social History Alcohol intake: current Alcohol intake frequency: holidays/special occasions only Patient Tobacco Use Status: Never used Tobacco Advance Directives: Yes Advance Directives on File: Yes Advance Directives Date on File: 11/30/21 service: No Current occupational status: employed Physical Exam Vital Signs: Vital Signs: Last Vital Signs Pulse 80 12/28/22 14:54 Resp 18 12/28/22 14:54 BP 153/61 H 12/28/22 14:54 Pulse Ox 97 12/28/22 14:54 O2 Del Method Room Air 12/28/22 14:54 BMI result Body Mass Index 30.3 Vital signs have been reviewed and appear to be correct. Blood pressure elevate d. Heart rate normal. Respiratory rate normal. Temperature normal. Oxygen saturation normal. Const: General: cooperative, healthy appearing and no acute distress Orientation/consciousness: oriented to person, oriented to place, oriented to time and patient oriented x3 Limitations: no limitations HEENT: Head: Yes normocephalic and Yes atraumatic Ears: external ears normal General nose exam: Normal external nose present Face and sinus: Yes face symmetric Mouth: oropharynx normal and moist mucous membranes Throat: Yes uvula midline Eyes: Pupils: Equal, round and reactive pupils present Neck: Neck: Yes normal visual inspection and Yes supple Resp: Effort & Inspection: normal respiratory effort and able to speak in complete sentences Auscultation: clear to auscultation bilaterally Cardio: Rate: regular rate Rhythm: regular rhythm Heart sounds: S1 normal heart sound present and S2 normal heart sound present GI: Palpation (GI): Soft to palpation and nontender Auscultation: normoactive bowel sounds : General: Yes no CVA tenderness Back/Spine/Pelvis: Back: no CVA tenderness Skin: Other: Erythematous macules to left abdomen consistent with tinea infection General skin exam: elasticity normal and turgor normal Neuro: General: oriented to person, oriented to place, oriented to time, patient oriented x3, moves all extremities, no focal motor deficits and CN's II- XI intact bilaterally Cranial nerves: Yes Equal, round and reactive pupils present Cognition (Neuro): normal cognition Extrem: General: Yes full ROM, Yes normal exam except as noted, Yes no pedal edema and Yes no calf tenderness Right lower extremity: ankle Details: tenderness Location: of the lateral malleolus and of the medial malleolus, swelling Details: laterally and medially and abnormal ROM Details: with range as follows (decreased); no ecchymosis and foot Details: vascular exam Details: dorsalis pedis pulse present and posterior tibial pulse present Psych: Mental Status: mental status grossly normal Affect: normal affect Thought process: Normal thought process present Course Course Course Narrative: This is an RME: Additional HPI, ROS, PE not included below will be deferred to primary provider. Patient is a 67-year-old male presents emergency department for evaluation of traumatic right ankle pain. Reports [employer] walking down the stairs, slipped on rug at the bottom of stairs landing on right side now with medial right ankle pain and numbness to the foot. Reports posterior head strike onto the stair, no LOC, no anticoagulants, no dizziness, headache, neck pain. Plan: Acetaminophen, x-ray Medications Administered Discontinued Medications Generic Name Dose Route Start Last Admin Trade Name Gianfranco PRN Reason Stop Dose Admin Acetaminophen 975 mg 12/28/22 14:58 12/28/22 15:04 Acetaminophen 325 Mg Tablet PO 12/28/22 14:59 975 mg ONCE ONE Administration Medical Decision Making Medical Decision Making [facility] Narrative: Patient is a 67-year-old male presenting to the emergency department with complaint of right ankle pain and swelling after slipping and falling on a rug prior to arrival. On exam patient is awake, A+Ox3, VS WNL, afebrile, normal neurological exam without focal deficits, swelling and tenderness to lateral and medial malleolus of right ankle, 2+ DP and PT pulses, full range of motion all toes right foot, erythematous macules to left abdomen consistent with tinea. Given reported symptoms and physical exam findings, initial differential includes right ankle strain, sprain, fracture, dislocation, tinea corporis, contact dermatitis, cellulitis. X-ray notable for bimalleolar fracture right ankle. My interpretation is in agreement with the radiologist's interpretation. Posterior short with stirrup splint ordered as well as crutches with crutch teaching. Patient instructed that he has to be completely nonweightbearing on right ankle until follow-up with Orthopedics. Will refer patient to Ortho, curtis galicia states his son runs an orthopedic office and he will likely follow up there. Return precautions discussed at bedside. Will prescribe short course of Tramadol as patient is unable to take ibuprofen or other NSAIDs. Advised patient to keep the ankle elevated while at rest, apply ice over the splint several times daily. Will prescribe clotrimazole cream for tinea corporis of left abdomen. Instructed patient to follow-up with primary care provider. Patient verbalized understanding of and agreement with plan. Differential Diagnosis Differential Diagnoses: The differential diagnosis associated with the presentation includes As per MDM. Independent Interpretation I performed an independent interpretation of an: Plain X-Ray Interpretation: Right bimalleolar fracture Radiology Impression Discussion of test interpretation with radiology: I have reviewed the radiologist's reading. Radiologist Impression: XR/XR ankle RT min 3V IMPRESSION: ? - Mildly displaced avulsion fracture from the tip of the medial malleolus. ? - Nondisplaced oblique fracture of the distal fibula above the ankle mortise. ? External Record Review External record reviewed: Inpatient record, Office record and Outpatient record Prescription Management I considered prescription management with: Pain Medication Chronic Conditions Patient?s care impacted by: Diabetes Discharge Plan Discharge Clinical Impression: Avulsion fracture of medial malleolus, Fracture of distal end of right fibula, Tinea corporis Patient Disposition: Home, Self-Care Instructions: Ankle Fracture (DC), Crutch Instructions (ED), Tinea Corporis (ED) Additional Instructions: You have been evaluated in the emergency department today for right ankle pain. Your x-ray showed distal fibula fracture and avulsion fracture of the medial malleolus. We have provided crutches for you to use while your ankle is splinted. DO NOT BEAR ANY WEIGHT OF YOUR RIGHT ANKLE. Please rest, ice, and elevate your ankle. We recommend you take 650mg Tylenol every 6 hours as needed for pain. You are being prescribed Tramadol for severe pain. YOU WILL NEED TO FOLLOW UP WITH ORTHOPEDICS FOR FURTHER MANAGEMENT OF YOUR INJURIES, PLEASE CALL FIRST THING Friday. Please schedule an appointment for follow-up with your primary care provider this week. Return to the emergency department if you experience worsening pain, numbness, tingling, change of color in your foot, or any other concerning symptoms. You are being prescribed clotrimazole cream to apply to your abdomen twice daily for your fungal rash, please follow-up with your primary care provider regarding this. Prescriptions: New clotrimazole 1 % cream 1 appl topical BID 14 Days Qty: 15 0RF tramadol 50 mg tablet 50 mg PO Q8H PRN (Reason: pain) Qty: 9 0RF No Action buspirone 5 mg tablet 5 mg PO BID clonazepam 0.5 mg tablet 0.5 mg PO BID PRN (Reason: Anxiety) metoclopramide HCl 10 mg tablet 10 mg PO TID PRN (Reason: STOMACH SPASMS) omeprazole 20 mg Tablet,Delayed Release (Dr/Ec) 20 mg PO BID aspirin 81 mg tablet,delayed release (DR/EC) 81 mg PO DAILY Qty: 90 3RF dextroamphetamine-amphetamine 20 mg capsule,extended release 24hr 40 mg PO DAILY insulin glargine [Lantus Solostar U-100 Insulin] 100 unit/mL (3 mL) insulin pen 15 unit subcut BEDTIME insulin lispro [Humalog U-100 Insulin] 100 unit/mL solution See Rx Instructions .ROUTE .COMPLEX Protocol: Insulin Correction Scale Less than or equal to 110 ---- Give (units): 0 111 to 150 Give (units): 0 151 to 200 Give (units): 4 201 to 250 Give (units): 6 251 to 300 Give (units): 8 301 to 350 Give (units): 10 Greater than 350 Give (units): 12 Call MD if Blood Glucose > : 350 Rx Instructions: UP TO 15 UNITS TID WITH MEALS metoprolol succinate 50 mg tablet extended release 24 hr 50 mg PO DAILY Qty: 90 3RF rosuvastatin 40 mg tablet 40 mg PO DAILY Qty: 90 3RF metformin 500 mg tablet 1,000 mg PO BID metformin 1,000 mg tablet 1,000 mg PO BID Referrals: [facility] [facility] [Provider Group]
[2022-12-28 14:54] VITALS: BP 153/61; PULSE 80; RESP 18; O2SAT 97; BMI 30.3
[2022-12-28] MEDS: Acetaminophen 325 MG TABLET 975 MG PO (15:04)
== END 2022-12-28 16:57 | disposition home or self-care (01) ==
PROVIDERS: Emergency Provider Student in an Organized Health Care Education/Training Program; PCP Internal Medicine
DX: S82.51XA Displaced fracture of medial malleolus of right tibia, initial encounter for closed fracture (principal); S82.61XA Displaced fracture of lateral malleolus of right fibula, initial encounter for closed fracture; W18.30XA Fall on same level, unspecified, initial encounter; B35.4 Tinea corporis; E11.9 Type 2 diabetes mellitus without complications; Y93.89 Activity, other specified; Y92.018 Other place in single-family (private) house as the place of occurrence of the external cause; Y99.9 Unspecified external cause status
CPT/HCPCS: 29515; 73610; 99283

== ENCOUNTER 2023-06-30 12:58 | Outpatient (AMB) | payer MEDICARE, OTHER, SELFPAY ==
--- NOTE | 2023-06-30 13:02 | A.OFFVIS_ITS ---
Intake Vital Signs 06/30/23 13:03 Height 5 ft 9 in Weight 205 lb 0.478 oz BMI 30.3 BP 188/90 H Blood Pressure Location Lt brachial Position Sitting Pulse 122 H Intake Visit Reasons: 6 mth f/up Intake Note: 6 month follow up Biological Science Aide Required: No Accompanied by: Spouse Allergies liraglutide [From VICTOZA] Allergy (Unknown, Verified 06/30/23 13:03) UNKNOWN HPI HPI Comments History of Present Illness Details Jamal returns for follow-up regarding coronary artery disease. To recall, history of diabetes for more than 2 decades. In 2021, he presented with abdominal symptoms but no clear chest pain. However, had elevated troponins suggestive of NSTEMI. Echocardiogram also showed wall motion abnormalities. Then sent to [facility] for cardiac catheterization and underwent circumflex stenting. Then another hospitalization for possible pericarditis for which she got NSAIDs. He states he was doing fine, but in the last few days has not been feeling good. Various sensations like feeling hot/cold, weak, sleepy, diaphoretic among others. Very nauseous. However, again does not have any cardiac symptoms. [facility] Medical History (Updated 06/30/23 @ 13:25 by Hardik Aranda MD) Essential hypertension Left carotid artery stenosis Atherosclerotic cardiovascular disease Pericarditis Chest pain Type 2 diabetes mellitus with unspecified complications Neuropathy Acute non-ST elevation myocardial infarction (NSTEMI) Gastroparesis Surgical History H/O eye surgery Family History Mother CAD (coronary artery disease) Brother CAD (coronary artery disease) Social History Alcohol intake: current Alcohol intake frequency: holidays/special occasions only Patient Tobacco Use Status: Never used Tobacco Advance Directives Date on File: 11/30/21 service: No Current occupational status: employed Review of Systems Const Denies weakness ENT Denies dizziness Card Denies chest pain, Denies chest pain with activity, Denies syncope, Denies rapid heart rate, Denies pedal edema, Denies edema, Denies leg edema, Denies lightheadedness, Denies palpitations, Denies dyspnea, Denies dyspnea on exertion and Denies orthopnea Resp Denies cough, Denies dyspnea and Denies dyspnea on exertion GI Denies hematochezia and Denies change in stool character Musc Denies abnormal gait, Denies muscle cramps, Denies muscle weakness, Denies numbness, Denies radiating pain into limb and Denies tingling Neuro Denies abnormal gait, Denies dizziness, Denies syncope, Denies numbness, Denies tingling and Denies weakness Endo Denies palpitations Physical Exam Vital Signs: Last Vital Signs Pulse 122 H 06/30/23 13:03 BP 188/90 H 06/30/23 13:03 BMI result Body Mass Index 30.3 Const General: comfortable and no acute distress Orientation/consciousness: patient oriented x3 HEENT Other: Unremarkable Head: Yes normal to inspection Neck Neck: Yes normal visual inspection Chest Chest palpation & inspection: normal inspection of the chest Resp Auscultation: clear to auscultation bilaterally Cardio Palpation: normal PMI Heart sounds: S1 normal heart sound present, S2 normal heart sound present, no gallops, no murmurs and no rubs GI Palpation (GI): Soft to palpation Back/Spine/Pelvis Other: unremarkable Skin General skin exam: no rashes or lesions noted Neuro General: patient oriented x3 Extrem General: Yes normal to inspection Psych Mental Status: mental status grossly normal Office Procedures EKG Details: EKG with sinus tachycardia at 01:26/Min; possible old inferior infarct and septal infarct; [place] [address][id number], Complete Assessment & Plan Assessment & Plan (1) Atherosclerotic cardiovascular disease: Code(s): I25.10 - Atherosclerotic heart disease of [place] coronary artery without angina pectoris Plan: Cardiac catheterization data reviewed from 11/2021. Distal circumflex had 90% stenosis, status post stenting. Mid LAD with 40% stenosis. No significant disease elsewhere. Continue aspirin. Continue statins. Last LDL 28 mg/dL. Triglycerides 181 mg/dL. LFTs are okay. (2) Left carotid artery stenosis: Code(s): I65.22 - Occlusion and stenosis of left carotid artery Plan: In the last carotid ultrasound from 2022, left-sided stenosis, 50-79%. Right- sided 0-49%. Overall, no major change compared to before. Will need to be repeated in due course. (3) Type 2 diabetes mellitus with unspecified complications: Code(s): E11.8 - Type 2 diabetes mellitus with unspecified complications Plan: On insulin, metformin. Last hemoglobin A1c on the higher side at 9.4%. (4) Other and unspecified hyperlipidemia: Code(s): E78.5 - Hyperlipidemia, unspecified Plan: Continue statins. (5) Essential hypertension: Code(s): I10 - Essential (primary) hypertension Plan: Blood pressure is high today along with high heart rate but he also feels sick. Advised him to do home blood pressures after he gets discharged home from the ER and contact us. Plan Due to complaints of feeling hot/cold, nausea, diaphoresis among others along with tachycardia/hypertension, needs ER evaluation, labs, imaging. Patient states he wants to go to the ER by himself with significant other. Coding Level of Care Code Est Pt Level 4 (31121) Diagnoses Atherosclerotic cardiovascular disease I25.10 Left carotid artery stenosis I65.22 Type 2 diabetes mellitus with unspecified complications E11.8 Other and unspecified hyperlipidemia E78.5 Essential hypertension I10 CPT Codes EKG - CPT: 99965-[id number], Complete ([id number])
[2023-06-30 13:03] VITALS: BP 188/90; PULSE 122; BMI 30.3
== END 2023-06-30 13:25 | disposition home or self-care (01) ==
PROVIDERS: PCP Family Medicine; Visit Provider Internal Medicine
DX: I25.10 Atherosclerotic heart disease of native coronary artery without angina pectoris (principal); I65.22 Occlusion and stenosis of left carotid artery; E11.8 Type 2 diabetes mellitus with unspecified complications; E78.5 Hyperlipidemia, unspecified; I10 Essential (primary) hypertension; R00.0 Tachycardia, unspecified
CPT/HCPCS: 93010; 99214

== ENCOUNTER 2023-06-30 13:31 | Emergency (ER) | payer MEDICARE, OTHER, SELFPAY ==
--- NOTE | 2023-06-30 14:38 | ED_ITS ---
HPI - General Adult General Chief complaint: Abdominal Pain Stated complaint: dry heaves high bp Related Data Home Medications Medication Instructions Recorded Confirmed buspirone 5 mg tablet 5 mg PO BID 07/04/21 11/26/22 clonazepam 0.5 mg tablet 0.5 mg PO BID PRN Anxiety 07/04/21 11/26/22 omeprazole 20 mg tablet,delayed 20 mg PO BID 11/26/21 11/26/22 release dextroamphetamine-amphetamine ER 40 mg PO DAILY 11/29/21 11/26/22 20 mg 24hr capsule,extend release insulin glargine 100 unit/mL (3 15 unit subcut BEDTIME 11/29/21 11/26/22 mL) subcutaneous pen (Lantus Solostar U-100 Insulin) insulin lispro 100 unit/mL See Rx Instructions .Route .COMPLEX 11/29/21 11/26/22 subcutaneous solution (Humalog U-100 Insulin) metformin 1,000 mg tablet 1,000 mg PO BID 11/26/22 11/26/22 gabapentin 300 mg capsule 300 mg PO 06/30/23 glucagon 1 mg/0.2 mL subcutaneous mg subcut 06/30/23 auto-injector (Gv[place]bee HypoPen 2-Pack) lisinopril 2.5 mg tablet 2.5 mg PO DAILY 06/30/23 metoclopramide HCl 10 mg tablet 10 mg PO QIDACHS 06/30/23 (Reglan) ondansetron HCl 4 mg tablet 4 mg PO Q8H 06/30/23 Previous Rx's Medication Instructions Recorded metoprolol succinate 50 mg 50 mg PO DAILY #90 tabs 12/31/21 tablet,extended release 24 hr clotrimazole 1 % topical cream 1 appl topical BID 2 weeks #15 12/28/22 grams tramadol 50 mg tablet 50 mg PO Q8H PRN pain #9 tabs 12/28/22 rosuvastatin 40 mg tablet 40 mg PO DAILY #90 tabs 02/17/23 Allergies Allergy/AdvReac Type Severity Reaction Status Date / Time liraglutide [From VICTOZA] Allergy Unknown UNKNOWN Verified 06/30/23 13:03 [facility] Past Medical History Medical History (Updated 06/30/23 @ 23:10 by SHAYLA Perez) Essential hypertension Left carotid artery stenosis Atherosclerotic cardiovascular disease Pericarditis Chest pain Type 2 diabetes mellitus with unspecified complications Neuropathy Acute non-ST elevation myocardial infarction (NSTEMI) Gastroparesis Surgical History H/O eye surgery Family History Family History Mother CAD (coronary artery disease) Brother CAD (coronary artery disease) Social History Social History Alcohol intake: current Alcohol intake frequency: holidays/special occasions only Patient Tobacco Use Status: Never used Tobacco Advance Directives: Yes Advance Directives on File: Yes Advance Directives Date on File: 11/30/21 service: No Current occupational status: employed Physical Exam ED Vital Signs: Vital Signs - 24 hr 06/30/23 14:39 Temperature 97.6 F Pulse Rate 120 H Respiratory Rate 16 Blood Pressure 178/92 H Pulse Oximetry 98 Oxygen Delivery Method Room Air BMI result Body Mass Index 31.6 Course Course Course Narrative: RME:?68 yo male hx of HTN, T2DM, L carotid stenosis, ACD, NSTEMI, pericarditis here from Dr. Aranda off here w/ vomiting/ dry heaves x1 week. normal BMs. denies abd pain/ surgeries. hx of gastroparesis. POC glucose last night in the 400's. poc glucose 358 10 minutes prior to triage. states this feels different from his previous gastroparesis however this is how his previous NSTEMI presented. denies chest pain, SOB. EKG @ millie's office showed tachycardia- sent here for further eval. labs, EKG ordered Full HPI, ROS and PE to be performed by the primary ED provider. Reevaluation(s) Reevaluation #1: Patient left the ED without completing treatment. Medical Decision Making Lab Data 06/30/23 15:29 06/30/23 15:29 Labs: Lab Results 06/30/23 06/30/23 06/30/23 Range/Units 15:29 15:30 15:34 WBC 10.8 (4.8-10.8) X10*3/uL RBC 6.67 H (4.60-5.80) X10*6/uL Hgb 17.6 (14.0-18.0) g/dl Hct 51.0 (42.0-52.0) % MCV 76.5 L (80.0-98.0) fL MCH 26.4 L (27.0-33.0) pg MCHC 34.5 (31.0-36.0) g/dl RDW 13.8 (11.0-16.0) % Plt Count 239 (160-400) X10*3/uL MPV 9.0 L (9.4-12.4) fL Immature Gran % (Auto) 0.2 (0.0-0.4) % Neut % (Auto) 84.6 H (45-73) % Lymph % (Auto) 8.7 L (20-40) % [place] % (Auto) 6.2 (2-11) % Eos % (Auto) 0.0 (0-4) % Baso % (Auto) 0.3 (0-2) % Lymph # (Auto) 0.9 L (1.2-4.9) X10*3/uL [place] # (Auto) 0.7 (0.1-1.2) X10*3/uL Eos # (Auto) 0.0 (0.0-0.4) X10*3/uL Baso # (Auto) 0.0 (0.0-0.2) X10*3/uL Abs Immat Gran (auto) 0.02 (0.00-0.03) X10*3/uL Absolute Neuts (auto) 9.1 H (2.0-8.3) x10*3/uL Absolute Nucleated RBC 0.000 (0.0-0.012) X10*3/uL Nucleated RBC % (auto) 0.0 (0.0-0.2) /100WBC VBG pH 7.44 H (7.32-7.43) VBG pCO2 37 mmHg VBG pO2 59 mmHg VBG HCO3 26 (22-26) mmol/L VBG O2 Saturation 90.0 % VBG Base Excess 2.2 mmol/L Sodium 134 L (135-145) mmol/L Potassium 4.7 (3.3-5.1) mmol/L Chloride 96 (96-108) mmol/L Carbon Dioxide 27 (22-29) mmol/L Anion Gap 16 (12-20) BUN 26 H (9-16) mg/dL Creatinine 1.37 (0.5-1.4) mg/dL Estim Creat Clear Calc 56.4 Estimated GFR 52 Random Glucose 346 H (60-115) mg/dL Osmolality 306 H (281-305) mosm/kg Calcium 10.6 H D (8.4-10.2) mg/dL Magnesium 1.6 (1.6-2.6) mg/dL Total Bilirubin 0.7 (0.0-1.0) mg/dL AST 56 H (5-37) U/L ALT 82 H (0-40) U/L Alkaline Phosphatase 112 (39-117) U/L Troponin I High Sens 24.7 (<3.5-35.0) ng/L Total Protein 7.9 (6.5-8.0) g/dL Albumin 4.6 (3.5-5.0) g/dL Lipase 37 (8-78) U/L Beta-Hydroxybutyrate 0.59 H (0.02-0.27) mmol/L Discharge Plan Discharge Clinical Impression: Vomiting Patient Disposition: Left W/O Completing Treatment Prescriptions: No Action rosuvastatin 40 mg tablet 40 mg PO DAILY Qty: 90 3RF buspirone 5 mg tablet 5 mg PO BID clonazepam 0.5 mg tablet 0.5 mg PO BID PRN (Reason: Anxiety) omeprazole 20 mg Tablet,Delayed Release (Dr/Ec) 20 mg PO BID dextroamphetamine-amphetamine 20 mg capsule,extended release 24hr 40 mg PO DAILY insulin glargine [Lantus Solostar U-100 Insulin] 100 unit/mL (3 mL) insulin pen 15 unit subcut BEDTIME insulin lispro [Humalog U-100 Insulin] 100 unit/mL solution See Rx Instructions .ROUTE .COMPLEX Protocol: Insulin Correction Scale Less than or equal to 110 ---- Give (units): 0 111 to 150 Give (units): 0 151 to 200 Give (units): 4 201 to 250 Give (units): 6 251 to 300 Give (units): 8 301 to 350 Give (units): 10 Greater than 350 Give (units): 12 Call MD if Blood Glucose > : 350 Rx Instructions: UP TO 15 UNITS TID WITH MEALS metoprolol succinate 50 mg tablet extended release 24 hr 50 mg PO DAILY Qty: 90 3RF clotrimazole 1 % cream 1 appl topical BID 14 Days Qty: 15 0RF tramadol 50 mg tablet 50 mg PO Q8H PRN (Reason: pain) Qty: 9 0RF Gvoke HypoPen 2-Pack 1 mg/0.2 mL auto-injector subcut lisinopril 2.5 mg tablet 2.5 mg PO DAILY gabapentin 300 mg capsule 300 mg PO ondansetron HCl 4 mg tablet 4 mg PO Q8H metoclopramide HCl [Reglan] 10 mg tablet 10 mg PO QIDACHS metformin 1,000 mg tablet 1,000 mg PO BID Discharge Date/Time: 06/30/23 20:00
[2023-06-30 14:39] VITALS: BP 178/92; PULSE 120; RESP 16; TEMP 36.4; O2SAT 98; BMI 31.6
--- NOTE | 2023-06-30 14:44 | ECG_ITS ---
Test Reason : ABD PAIN Blood Pressure : / mmHG Vent. Rate : 113 BPM Atrial Rate : 113 BPM P-R Int : 176 ms QRS Dur : 078 ms QT Int : 328 ms P-R-T Axes : 060 013 089 degrees QTc Int : 449 ms Sinus tachycardia Possible Inferior infarct (cited on or before 29-NOV-2021) Cannot rule out Anteroseptal infarct , age undetermined Abnormal ECG When compared with ECG of 07-DEC-2021 20:03, T wave amplitude has decreased in Inferior leads T wave inversion no longer evident in Anterior leads Referred By: Myranda Garcias Electronically Signed By:STEFFI WEISS
[2023-06-30 15:37] LABS: MANUAL DIFF FLAG NO
[2023-06-30 15:40] LABS: Basophils Percent Auto 0.3 % (0-2); Hemoglobin 17.6 g/dl (14.0-18.0); Imm Gran Abs Auto 0.02 X10*3/uL (0.00-0.03); Imm Gran Pct Auto 0.2 % (0.0-0.4); Lymphocytes Absolute Auto 0.9 X10*3/uL (1.2-4.9); Lymphocytes Percent Auto 8.7 % (20-40); Mean Corpuscular HGB Conc 34.5 g/dl (31.0-36.0); Mean Corpuscular Hemoglobin 26.4 pg (27.0-33.0); Mean Corpuscular Volume 76.5 fL (80.0-98.0); Monocytes Absolute Auto 0.7 X10*3/uL (0.1-1.2); Monocytes Percent Auto 6.2 % (2-11); Neutrophils Absolute Auto 9.1 x10*3/uL (2.0-8.3); Neutrophils Percent Auto 84.6 % (45-73); Platelet Count 239 X10*3/uL (160-400); Red Blood Count 6.67 X10*6/uL (4.60-5.80); Red Cell Distribution Width 13.8 % (11.0-16.0); White Blood Count 10.8 X10*3/uL (4.8-10.8)
[2023-06-30 15:43] LABS: VBG Base Excess 2.2 mmol/L; VBG HCO3 26 mmol/L (22-26); VBG pCO2 37 mmHg; VBG pH 7.44 (7.32-7.43); VBG pO2 59 mmHg
[2023-06-30 15:47] LABS: Venous Blood Gas Refer to POC result
[2023-06-30 15:48] LABS: Osmolality, Serum 306 mosm/kg (281-305)
[2023-06-30 15:50] LABS: Beta-Hydroxybutyrate 0.59 mmol/L (0.02-0.27)
[2023-06-30 15:52] LABS: Alanine Aminotransferase 82 U/L (0-40); Albumin Level 4.6 g/dL (3.5-5.0); Alkaline Phosphatase 112 U/L (39-117); Anion Gap 16 (12-20); Aspartate Amino Transferase 56 U/L (5-37); Bilirubin Total 0.7 mg/dL (0.0-1.0); Blood Urea Nitrogen 26 mg/dL (9-16); Calcium 10.6 mg/dL (8.4-10.2); Carbon Dioxide 27 mmol/L (22-29); Chloride 96 mmol/L (96-108); Creatinine Clr Calc Pharmacy 56.4; Estimated Glomerular Filt Rate 52; Glucose Random 346 mg/dL (60-115); Lipase 37 U/L (8-78); Magnesium 1.6 mg/dL (1.6-2.6); Potassium 4.7 mmol/L (3.3-5.1); Sodium 134 mmol/L (135-145); Total Protein 7.9 g/dL (6.5-8.0)
[2023-06-30 15:59] LABS: Troponin-I High Sensitivity 24.7 ng/L (<3.5-35.0)
== END 2023-06-30 20:00 | disposition left against medical advice (07) ==
PROVIDERS: Physician Assistant Medical; Emergency Provider Emergency Medicine; PCP Internal Medicine
DX: R11.10 Vomiting, unspecified (principal); I25.10 Atherosclerotic heart disease of native coronary artery without angina pectoris; I10 Essential (primary) hypertension; I65.22 Occlusion and stenosis of left carotid artery; E11.8 Type 2 diabetes mellitus with unspecified complications; E78.5 Hyperlipidemia, unspecified; I25.2 Old myocardial infarction; Z79.82 Long term (current) use of aspirin; Z79.899 Other long term (current) drug therapy
CPT/HCPCS: 36415; 80053; 82010; 82803; 83690; 83735; 83930; 84484; 85025; 93005; 99212; 99283

== ENCOUNTER 2023-07-04 10:07 | Emergency (ER) | payer MEDICARE, SELFPAY ==
[2023-07-04] VITALS (7 sets, daily range): BP systolic 110–219; BP diastolic 56–115; PULSE 97–123; RESP 16–18; TEMP 36.7–37; O2SAT 96–100; BMI 31.5
--- NOTE | ~2023-07-04 | CT_ITS ---
EXAMINATION: CT ABDOMEN AND PELVIS WITHOUT CONTRAST CLINICAL INFORMATION: Nausea and vomiting. Pain. COMPARISON: CT abdomen pelvis dated 11/29/2021. TECHNIQUE: Multidetector volumetric imaging was performed from the superior aspect of the liver through the pubic symphysis. Sagittal and coronal reformatted images were obtained on the technologist's workstation. This CT examination was performed using dose optimization techniques as appropriate, variously including the following: *Automated exposure control *Adjustment of mA and/or kV according to patient size (this includes techniques or standardized protocols for targeted exams where dose is matched to indication/reason for exam; i.e. extremities or head) *Use of iterative reconstruction technique DLP: 1254 mGy-cm FINDINGS: LUNG BASES: Partially visualized groundglass opacity within the lingula may represent atelectasis. The visualized lung bases are otherwise clear. There is no pleural effusion. Heart size is normal. No pericardial effusion. LIVER, GALLBLADDER, AND BILIARY TREE: The liver is normal in size, shape, and attenuation. No focal hepatic lesion or biliary ductal dilatation is present. There are a few small gallstones near the neck. There is no gallbladder wall thickening or obvious pericholecystic inflammatory changes. PANCREAS: Unremarkable. SPLEEN: Unremarkable. ADRENAL GLANDS: Unremarkable. KIDNEYS AND URETERS: The kidneys are normal in size, shape, and attenuation. No hydronephrosis, hydroureter, or calculi seen. No perinephric stranding. There is a 2 x 2.3 cm exophytic right renal cyst. BLADDER: Unremarkable. GASTROINTESTINAL TRACT: The small bowel and colon are normal in caliber. There is no pericolonic inflammatory stranding. The appendix is identified in the right lower quadrant and appears normal. ABDOMINAL WALL: No significant hernia is appreciated. LYMPH NODES: No retroperitoneal or pelvic lymphadenopathy. VASCULAR: No abdominal aortic aneurysm. Mild atherosclerotic disease. PELVIC VISCERA: Unremarkable. No pelvic free fluid. OSSEOUS STRUCTURES: Moderate to severe lumbar spondylosis. CT/CT abdomen pelvis wo IV con IMPRESSION: No CT explanation for patient's acute symptoms. Cholelithiasis without evidence of acute cholecystitis. Fleischner guidelines were followed.
--- NOTE | ~2023-07-04 | XR_ITS ---
EXAMINATION: XR CHEST CLINICAL INFORMATION: Chest pain. COMPARISON: 12/07/2021 TECHNIQUE: Frontal view of the chest was obtained. FINDINGS: The lungs are well expanded. No focal consolidation. No pleural effusion. Cardiac silhouette is unchanged. XR/XR chest 1V IMPRESSION: No acute abnormality.
--- NOTE | ~2023-07-04 | CT_ITS ---
EXAMINATION: CT HEAD WITHOUT CONTRAST CLINICAL INFORMATION: Nausea and vomiting. Change in mental status. COMPARISON: None available. TECHNIQUE: Contiguous axial imaging was performed from the skull base to vertex without intravenous administration of contrast. This CT examination was performed using dose optimization techniques as appropriate, variously including the following: *Automated exposure control *Adjustment of mA and/or kV according to patient size (this includes techniques or standardized protocols for targeted exams where dose is matched to indication/reason for exam; i.e. extremities or head) *Use of iterative reconstruction technique DLP: 1254 mGy-cm FINDINGS: There is no intracranial hemorrhage. There is no evidence of acute/subacute cerebral or cerebellar infarction. There is no midline shift or mass effect. No extra-axial fluid collection. The ventricles are normal in size. The orbits are symmetric and within normal limits. The calvarium is intact. The mastoid air cells are well aerated. Visualized paranasal sinuses are clear. CT/CT head/brain wo IV con IMPRESSION: No acute intracranial pathology.
--- NOTE | 2023-07-04 11:11 | ECG_ITS ---
Test Reason : DIZZINESS Blood Pressure : / mmHG Vent. Rate : 113 BPM Atrial Rate : 113 BPM P-R Int : 176 ms QRS Dur : 076 ms QT Int : 330 ms P-R-T Axes : 059 007 065 degrees QTc Int : 452 ms Sinus tachycardia Septal infarct (cited on or before 07-DEC-2021) Inferior infarct (cited on or before 29-NOV-2021) Abnormal ECG When compared with ECG of 30-JUN-2023 15:18, No significant change was found Referred By: Jeri Rodrigez Electronically Signed By:STEFFI WEISS
--- NOTE | 2023-07-04 11:13 | ED_ITS ---
HPI - Dizziness General Chief Complaint: Dizziness Stated Complaint: HYPERTENSION Time Seen by Provider: 07/04/23 10:11 Related Data Home Medications Medication Instructions Recorded Confirmed buspirone 5 mg tablet 5 mg PO BID 07/04/21 11/26/22 clonazepam 0.5 mg tablet 0.5 mg PO BID PRN Anxiety 07/04/21 11/26/22 omeprazole 20 mg tablet,delayed 20 mg PO BID 11/26/21 11/26/22 release dextroamphetamine-amphetamine ER 40 mg PO DAILY 11/29/21 11/26/22 20 mg 24hr capsule,extend release insulin glargine 100 unit/mL (3 15 unit subcut BEDTIME 11/29/21 11/26/22 mL) subcutaneous pen (Lantus Solostar U-100 Insulin) insulin lispro 100 unit/mL See Rx Instructions .Route .COMPLEX 11/29/21 11/26/22 subcutaneous solution (Humalog U-100 Insulin) metformin 1,000 mg tablet 1,000 mg PO BID 11/26/22 11/26/22 gabapentin 300 mg capsule 300 mg PO 06/30/23 glucagon 1 mg/0.2 mL subcutaneous mg subcut 06/30/23 auto-injector (GvApperian HypoPen 2-Pack) lisinopril 2.5 mg tablet 2.5 mg PO DAILY 06/30/23 metoclopramide HCl 10 mg tablet 10 mg PO QIDACHS 06/30/23 (Reglan) ondansetron HCl 4 mg tablet 4 mg PO Q8H 06/30/23 Previous Rx's Medication Instructions Recorded metoprolol succinate 50 mg 50 mg PO DAILY #90 tabs 12/31/21 tablet,extended release 24 hr clotrimazole 1 % topical cream 1 appl topical BID 2 weeks #15 12/28/22 grams tramadol 50 mg tablet 50 mg PO Q8H PRN pain #9 tabs 12/28/22 rosuvastatin 40 mg tablet 40 mg PO DAILY #90 tabs 02/17/23 Allergies Allergy/AdvReac Type Severity Reaction Status Date / Time liraglutide [From VICTOZA] Allergy Unknown UNKNOWN Verified 06/30/23 13:03 [facility] Past Medical History Medical History (Updated 07/04/23 @ 15:03 by Jeri Rodrigez MD) Essential hypertension Left carotid artery stenosis Atherosclerotic cardiovascular disease Pericarditis Chest pain Type 2 diabetes mellitus with unspecified complications Neuropathy Acute non-ST elevation myocardial infarction (NSTEMI) Gastroparesis Surgical History H/O eye surgery Family History Family History Mother CAD (coronary artery disease) Brother CAD (coronary artery disease) Social History Social History Alcohol intake: current Alcohol intake frequency: holidays/special occasions only Patient Tobacco Use Status: Never used Tobacco Advance Directives: Yes Advance Directives on File: Yes Advance Directives Date on File: 11/30/21 service: No Current occupational status: employed Physical Exam 2 Vital Signs: Vital Signs: Last Vital Signs Temp 98.4 F 07/04/23 14:51 Pulse 97 07/04/23 14:51 Resp 18 07/04/23 14:51 BP 118/56 L 07/04/23 14:51 Pulse Ox 96 07/04/23 14:51 O2 Del Method Room Air 07/04/23 14:51 BMI result Body Mass Index 31.5 Medications Administered Discontinued Medications Generic Name Dose Route Start Last Admin Trade Name Freq PRN Reason Stop Dose Admin Sodium Chloride 500 mls @ 999 mls/hr 07/04/23 11:15 07/04/23 12:39 Ns IV 07/04/23 11:45 Infused .Q31M ALEX Infusion Labetalol HCl 20 mg 07/04/23 13:14 07/04/23 13:30 Labetalol Hcl 100 Mg/20 Ml Vial IVPUSH 07/04/23 13:15 20 mg ONCE ONE Administration Labetalol HCl 20 mg 07/04/23 14:29 07/04/23 14:53 Labetalol Hcl 100 Mg/20 Ml Vial IVPUSH 07/04/23 14:30 Not Given ONCE ONE Ondansetron HCl 4 mg 07/04/23 14:37 07/04/23 14:53 Ondansetron Hcl 4 Mg/2 Ml Vial IVPUSH 07/04/23 14:38 4 mg ONCE ONE Administration Medical Decision Making Medical Decision Making MDM Narrative: Patient is 68 years old presents today with having generalized malaise weakness hypertension blood pressure initially was 210/100. Initial EKG was done showed a sinus tachycardia heart rate is proximally 110 [place] QRS QTC within normal limits is no acute ST segment elevation patient has no risk for PE. Patient's CT scan of the head was grossly negative for any acute evidence of bleeding. Patient's CT abdomen pelvis was negative for obstruction abscess perforation. Patient's chest x-ray showed no focal infiltrate. COVID flu RSV were all negative. Patient's white counts normal. Hemoglobin is 16 no evidence for anemia. Electrolytes showed a normal BUN and creatinine. Patient's initial set of troponin was mildly elevated 44. Will repeat. Differential Diagnosis Differential Diagnoses: The differential diagnosis associated with the presentation includes Weakness, headache, nausea Admission/Observation Consideration of admission/observation: Escalation of care including admission/observation considered Lab Data MDM Lab Attestation statement: I reviewed the patient's lab results. 07/04/23 11:58 07/04/23 11:58 Labs: Lab Results 07/04/23 07/04/23 07/04/23 Range/Units 11:33 11:47 11:58 WBC 8.1 (4.8-10.8) X10*3/uL RBC 6.23 H (4.60-5.80) X10*6/uL Hgb 16.5 (14.0-18.0) g/dl Hct 48.3 (42.0-52.0) % MCV 77.5 L (80.0-98.0) fL MCH 26.5 L (27.0-33.0) pg MCHC 34.2 (31.0-36.0) g/dl RDW 13.4 (11.0-16.0) % Plt Count 226 (160-400) X10*3/uL MPV 9.1 L (9.4-12.4) fL Immature Gran % (Auto) 0.2 (0.0-0.4) % Neut % (Auto) 76.7 H (45-73) % Lymph % (Auto) 15.5 L (20-40) % [place] % (Auto) 7.1 (2-11) % Eos % (Auto) 0.1 (0-4) % Baso % (Auto) 0.4 (0-2) % Lymph # (Auto) 1.3 (1.2-4.9) X10*3/uL [place] # (Auto) 0.6 (0.1-1.2) X10*3/uL Eos # (Auto) 0.0 (0.0-0.4) X10*3/uL Baso # (Auto) 0.0 (0.0-0.2) X10*3/uL Abs Immat Gran (auto) 0.02 (0.00-0.03) X10*3/uL Absolute Neuts (auto) 6.2 (2.0-8.3) x10*3/uL Absolute Nucleated RBC 0.000 (0.0-0.012) X10*3/uL Nucleated RBC % (auto) 0.0 (0.0-0.2) /100WBC Sodium 137 (135-145) mmol/L Potassium 4.0 (3.3-5.1) mmol/L Chloride 98 (96-108) mmol/L Carbon Dioxide 28 (22-29) mmol/L Anion Gap 15 (12-20) BUN 22 H (9-16) mg/dL Creatinine 1.28 (0.5-1.4) mg/dL Estim Creat Clear Calc 60.2 Estimated GFR 56 Random Glucose 209 H (60-115) mg/dL Calcium 9.9 D (8.4-10.2) mg/dL Total Bilirubin 0.9 (0.0-1.0) mg/dL Direct Bilirubin 0.4 (0.0-0.5) mg/dL AST 43 H (5-37) U/L ALT 62 H (0-40) U/L Alkaline Phosphatase 102 (39-117) U/L Troponin I High Sens 44.5 H D (<3.5-35.0) ng/L Total Protein 7.3 (6.5-8.0) g/dL Albumin 4.3 (3.5-5.0) g/dL Lipase 47 (8-78) U/L Urine Color Yellow Urine Appearance Clear Urine pH 7.0 (5.0-9.0) Ur Specific [place] 1.025 (1.005-1.025) Urine Protein 100 (2+) H (Neg-Trace) mg/dL Urine Glucose (UA) >=1000 H (Negative) mg/dL Urine Ketones 15 (Negative) mg/dL Urine Blood Trace H (Negative) Urine Nitrite Negative (Negative) Ur Leukocyte Esterase Negative (Negative) Urine RBC 0-2 (0-2) /HPF Urine WBC 0-5 (0-5) /HPF Ur Squamous Epith Cells 0-2 (0-2) /HPF Urine Bacteria None Seen (None Seen) Hyaline Casts 0-2 (0-2) /LPF Influenza Type A (PCR) NEGATIVE (Negative) Influenza Type B (PCR) NEGATIVE (Negative) RSV RNA Qual (PCR) NEGATIVE (Negative) SARS-CoV-2 RNA (RT-PCR) NEGATIVE (Negative) Independent Interpretation I performed an independent interpretation of an: EKG (Sinus heart rate is 110 [place] QRS QTC within normal limits is no acute changes when compared to previous.) Radiology Impression Discussion of test interpretation with radiology: I have reviewed the radiologist's reading. Independent Historian Clinical information obtained from an independent historian. History obtained from or confirmed by: Spouse External Record Review External record reviewed: Inpatient record Cardiology records reviewed Chronic Conditions Patient?s care impacted by: Diabetes and Hypertension Discharge Plan Discharge Clinical Impression: Hypertension, Nausea Patient Disposition: Home, Self-Care Prescriptions: No Action rosuvastatin 40 mg tablet 40 mg PO DAILY Qty: 90 3RF buspirone 5 mg tablet 5 mg PO BID clonazepam 0.5 mg tablet 0.5 mg PO BID PRN (Reason: Anxiety) omeprazole 20 mg Tablet,Delayed Release (Dr/Ec) 20 mg PO BID dextroamphetamine-amphetamine 20 mg capsule,extended release 24hr 40 mg PO DAILY insulin glargine [Lantus Solostar U-100 Insulin] 100 unit/mL (3 mL) insulin pen 15 unit subcut BEDTIME insulin lispro [Humalog U-100 Insulin] 100 unit/mL solution See Rx Instructions .ROUTE .COMPLEX Protocol: Insulin Correction Scale Less than or equal to 110 ---- Give (units): 0 111 to 150 Give (units): 0 151 to 200 Give (units): 4 201 to 250 Give (units): 6 251 to 300 Give (units): 8 301 to 350 Give (units): 10 Greater than 350 Give (units): 12 Call MD if Blood Glucose > : 350 Rx Instructions: UP TO 15 UNITS TID WITH MEALS metoprolol succinate 50 mg tablet extended release 24 hr 50 mg PO DAILY Qty: 90 3RF clotrimazole 1 % cream 1 appl topical BID 14 Days Qty: 15 0RF tramadol 50 mg tablet 50 mg PO Q8H PRN (Reason: pain) Qty: 9 0RF Gvoke HypoPen 2-Pack 1 mg/0.2 mL auto-injector subcut lisinopril 2.5 mg tablet 2.5 mg PO DAILY gabapentin 300 mg capsule 300 mg PO ondansetron HCl 4 mg tablet 4 mg PO Q8H metoclopramide HCl [Reglan] 10 mg tablet 10 mg PO QIDACHS metformin 1,000 mg tablet 1,000 mg PO BID Referrals: Ana Ireland DO [Primary Care Provider] - (Blood pressure recheck in 24-48 hours.)
[2023-07-04 11:43] LABS: Appearance Urine Clear; Color Urine Yellow; Glucose Urine UA >=1000 mg/dL (Negative); Leukocyte Esterase Urine Negative (Negative); Nitrite Urine Negative (Negative); Specific Gravity - Urine 1.025 (1.005-1.025); UMIC TRIGGER UACC YES; Urine Blood Trace (Negative); Urine Ketones 15 mg/dL (Negative); Urine Protein 100 (2+) mg/dL (Neg-Trace)
[2023-07-04 11:45] LABS: Bacteria Urine None Seen (None Seen); Hyaline Casts Urine 0-2 /LPF (0-2); RBC Urine 0-2 /HPF (0-2); Squamous Epithelial Cell Urine 0-2 /HPF (0-2); WBC Urine 0-5 /HPF (0-5)
[2023-07-04 12:02] LABS: MANUAL DIFF FLAG NO
[2023-07-04] MEDS: 0.9 % Sodium Chloride 500 ML 999 ML IV (12:02)
[2023-07-04 12:03] LABS: Basophils Percent Auto 0.4 % (0-2); Eosinophils Percent Auto 0.1 % (0-4); Hematocrit 48.3 % (42.0-52.0); Hemoglobin 16.5 g/dl (14.0-18.0); Imm Gran Abs Auto 0.02 X10*3/uL (0.00-0.03); Imm Gran Pct Auto 0.2 % (0.0-0.4); Lymphocytes Absolute Auto 1.3 X10*3/uL (1.2-4.9); Lymphocytes Percent Auto 15.5 % (20-40); Mean Corpuscular HGB Conc 34.2 g/dl (31.0-36.0); Mean Corpuscular Hemoglobin 26.5 pg (27.0-33.0); Mean Corpuscular Volume 77.5 fL (80.0-98.0); Mean Platelet Volume 9.1 fL (9.4-12.4); Monocytes Absolute Auto 0.6 X10*3/uL (0.1-1.2); Monocytes Percent Auto 7.1 % (2-11); Neutrophils Absolute Auto 6.2 x10*3/uL (2.0-8.3); Neutrophils Percent Auto 76.7 % (45-73); Platelet Count 226 X10*3/uL (160-400); Red Blood Count 6.23 X10*6/uL (4.60-5.80); Red Cell Distribution Width 13.4 % (11.0-16.0); White Blood Count 8.1 X10*3/uL (4.8-10.8)
[2023-07-04 12:21] LABS: Alanine Aminotransferase 62 U/L (0-40); Albumin Level 4.3 g/dL (3.5-5.0); Alkaline Phosphatase 102 U/L (39-117); Anion Gap 15 (12-20); Aspartate Amino Transferase 43 U/L (5-37); Bilirubin Direct 0.4 mg/dL (0.0-0.5); Bilirubin Total 0.9 mg/dL (0.0-1.0); Blood Urea Nitrogen 22 mg/dL (9-16); Calcium 9.9 mg/dL (8.4-10.2); Carbon Dioxide 28 mmol/L (22-29); Chloride 98 mmol/L (96-108); Creatinine Clr Calc Pharmacy 60.2; Estimated Glomerular Filt Rate 56; Glucose Random 209 mg/dL (60-115); Lipase 47 U/L (8-78); Sodium 137 mmol/L (135-145); Total Protein 7.3 g/dL (6.5-8.0)
[2023-07-04 12:23] LABS: Troponin-I High Sensitivity 44.5 ng/L (<3.5-35.0)
[2023-07-04 12:39] LABS: Influenza A PCR NEGATIVE (Negative); Influenza B PCR NEGATIVE (Negative); Resp Syncy Virus RNA Qual PCR NEGATIVE (Negative); SARS COV2 PCR INHOUSE NEGATIVE (Negative)
[2023-07-04] MEDS: Labetalol HCL 100 MG/20 ML VIAL 20 MG IVPUSH (13:30)
[2023-07-04] MEDS: ondansetron HCL 4 MG/2 ML VIAL IVPUSH (14:53)
--- NOTE | 2023-07-04 16:06 | PC.NURSE ---
this nurse took over pt care at 315pm, pt a&ox3, vss, denies pain/discomfort, awake overnight monitor intact, nsr, call francisco within reach, will continue to monitor
== END 2023-07-04 16:26 | disposition home or self-care (01) ==
PROVIDERS: Emergency Provider Emergency Medicine Emergency Medical Services; PCP Internal Medicine
DX: I10 Essential (primary) hypertension (principal); R11.0 Nausea; E11.9 Type 2 diabetes mellitus without complications; Z11.52 Encounter for screening for COVID-19; Z20.828 Contact with and (suspected) exposure to other viral communicable diseases
CPT/HCPCS: 0241U; 36415; 70450; 71045; 74176; 80048; 80076; 81001; 83690; 84484; 85025; 93005; 96361; 96374; 96375; 99284; 99285; J1920; J2405

== ENCOUNTER → 2023-07-04 11:11 | Outpatient (BNV) | payer MEDICARE, SELFPAY | PROVIDERS: Emergency Provider Emergency Medicine Emergency Medical Services; PCP Internal Medicine; Visit Provider Internal Medicine | DX: R42 Dizziness and giddiness (principal) | CPT/HCPCS: 93010 ==

== ENCOUNTER 2023-07-07 13:00 | Outpatient (AMB) | payer MEDICARE, SELFPAY ==
[2023-07-07 13:03] VITALS: BP 140/52; PULSE 115; BMI 32.9
--- NOTE | 2023-07-07 13:03 | MHC.OFFVIS ---
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 Allergies liraglutide [From VICTOZA] Allergy (Unknown, Verified 07/07/23 13:05) UNKNOWN Medication List - Last Reconciled 07/07/23 by MARY HardingC buspirone 5 mg PO BID clonazepam 0.5 mg PO BID PRN clotrimazole 1% 1 appl topical BID 2 weeks dextroamphetamine-amphetamine 20 mg ER 40 mg PO DAILY gabapentin 300 mg PO glucagon (Gvoke HypoPen 2-Pack) mg subcut insulin glargine (Lantus Solostar U-100 Insulin) 15 units subcut BEDTIME insulin lispro (Humalog U-100 Insulin) See Protocol UP TO 15 UNITS TID WITH MEALS lisinopril 2.5 mg PO DAILY metformin 1,000 mg PO BID metoclopramide HCl (Reglan) 10 mg PO QIDACHS metoprolol succinate ER 50 mg PO DAILY omeprazole 20 mg PO BID ondansetron HCl 4 mg PO Q8H rosuvastatin 40 mg PO DAILY HPI ED follow up/ BP HPI Details Jamal is a 68-year-old male with past medical history of hypertension, hyperlipidemia, diabetes, pericarditis, NSTEMI, CAD with left circumflex stent 11/2021, residual mid LAD stenosis, carotid stenosis who was seen in our office on 06/30. He reported illness at that time with vomiting and dry heaves. He went down to the emergency room for evaluation. Had lab work done then left after 8 hours of waiting. He continued to have symptoms and went to the emergency room on 07/04/2023. His blood pressure was initially elevated at 2 10/100. He was treated with IV labetalol and given Zofran. Blood pressure improved and nausea resolved. Today he reports he has not had any recurrent symptoms since his ER visit. He denies having nausea, vomiting, dry heaves in the last 3 days. No chest discomfort at rest or with activity. No shortness of breath, palpitations, lightheadedness, presyncope, syncope, falls. Tells me he is feeling normal and is going to work after this appointment. Has been taking his medications right along as directed. He says his blood pressures at home have been normal range. is present. [facility] Medical History (Updated 07/07/23 @ 17:22 by MARSHA Harding) Essential hypertension Left carotid artery stenosis Atherosclerotic cardiovascular disease Pericarditis Chest pain Type 2 diabetes mellitus with unspecified complications Neuropathy Acute non-ST elevation myocardial infarction (NSTEMI) Gastroparesis Surgical History (Updated 07/07/23 @ 15:46 by MARSHA Harding) Stented coronary artery H/O eye surgery Family History Mother CAD (coronary artery disease) Brother CAD (coronary artery disease) Social History Alcohol intake: current Alcohol intake frequency: holidays/special occasions only Patient Tobacco Use Status: Never used Tobacco Advance Directives Date on File: 11/30/21 service: No Current occupational status: employed Review of Systems Const All systems reviewed & are unremarkable except as noted in HPI and below ENT Denies dizziness Card Denies chest pain, Denies chest pain at rest, Denies chest pain with activity, Denies rapid heart rate, Denies pedal edema, Denies edema, Denies leg edema, Denies lightheadedness, Denies palpitations, Denies dyspnea, Denies dyspnea on exertion and Denies orthopnea Resp Denies cough, Denies dyspnea and Denies dyspnea on exertion GI Denies hematochezia and Denies change in stool character Musc Denies abnormal gait, Denies limited range of motion, Denies muscle cramps, Denies muscle weakness, Denies numbness, Denies radiating pain into limb, Denies stiffness and Denies tingling Neuro Denies abnormal gait, Denies dizziness, Denies numbness and Denies tingling Endo Denies palpitations Physical Exam Vital Signs: Last Vital Signs Pulse 115 H 07/07/23 13:03 BP 140/52 H 07/07/23 13:03 BMI result Body Mass Index 32.9 Const General: cooperative, healthy appearing, comfortable and no acute distress Orientation/consciousness: patient oriented x3 Neck Neck: Yes normal visual inspection and Yes no JVD Resp Effort & Inspection: normal respiratory effort Auscultation: clear to auscultation bilaterally, no crackles, no rales, no rhonchi and no wheezes Cardio Jugular venous distension: no JVD Rate: regular rate Rhythm: regular rhythm Heart sounds: S1 normal heart sound present, S2 normal heart sound present, no murmurs and no rubs Skin General skin exam: no rashes or lesions noted Neuro General: patient oriented x3 Extrem General: Yes normal to inspection and No no pedal edema Psych Appearance: grossly normal Mental Status: mental status grossly normal Speech and movement: Normal speech and movement present Assessment & Plan Assessment & Plan (1) Atherosclerotic cardiovascular disease: Code(s): I25.10 - Atherosclerotic heart disease of [place] coronary artery without angina pectoris Plan: History of CAD, NSTEMI 11/2021 with cardiac catheterization showing distal circumflex 99% stenosis and mid LAD 40% stenosis. Had SHABANA placed to the distal left circumflex. Last echocardiogram done 11/30/2021 showed EF 57%, basal inferior akinetic, basal inferior septal hypokinetic. Labs done on 06/30/2023 showed normal troponin. Labs done on 07/04/2023 showed mildly elevated troponin, 44 and 56. He denies any anginal sounding symptoms. That mild elevation may be related to a very elevated blood pressure at the time of his ER arrival. Last EKG shows sinus tachycardia, rate 113, septal infarct, inferior infarct, no changes. Today he reports feeling well with no concerning symptoms. His pulse rate is still elevated, asymptomatic. Reviewed the need for good hydration as he had been ill with nausea, vomiting and dry heaves for 2 weeks. No med changes made. Continue med management for stable CAD including aspirin, rosuvastatin, metoprolol XL and lisinopril. Signs and symptoms of angina reviewed. He has a follow-up with Dr. Aranda in 2 months which he would like to keep. (2) Stented coronary artery: Code(s): Z95.5 - Presence of coronary angioplasty implant and graft Plan: As above (3) Left carotid artery stenosis: Code(s): I65.22 - Occlusion and stenosis of left carotid artery Plan: Known history of carotid stenosis. Carotid ultrasound done 10/01/2022 showing left ICA 50-79% stenosis, right ICA 0-49% stenosis. No reports of visual changes or any neurological symptoms. Continue aspirin and statin. Plan for repeat carotid ultrasound September 2023. (4) Essential hypertension: Code(s): I10 - Essential (primary) hypertension Plan: Initially mildly elevated this visit at 140/52. Recheck done by me 112/58. Recent episode of uncontrolled hypertension in the setting of his GI type illness. He says in the last few days his blood pressure has been much better controlled. Continue current lisinopril and metoprolol. (5) Other and unspecified hyperlipidemia: Code(s): E78.5 - Hyperlipidemia, unspecified Plan: [place] LDL goal less than 70 in patient with CAD. Last lipid profile in our system was 11/27/2021 and LDL not performed due to elevated triglycerides 450. Continue rosuvastatin. Will enter order for fasting lipid profile. Plan Time spent on chart review, documentation, interview and assessment Orders: Orders US carotid duplex BI 09/29/23 E78.5 - Hyperlipidemia, unspecified, I10 - Essential (primary) hypertension, I65.29 - Occlusion and stenosis of unspecified carotid artery Lipid Panel Today E78.5 - Hyperlipidemia, unspecified Coding Level of Care Code Est Pt Level 4 (72857) Diagnoses Atherosclerotic cardiovascular disease I25.10 Stented coronary artery Z95.5 Left carotid artery stenosis I65.22 Essential hypertension I10 Other and unspecified hyperlipidemia E78.5 Time Spent (min) 28
== END 2023-07-07 14:03 | disposition home or self-care (01) ==
PROVIDERS: PCP Internal Medicine; Visit Provider Nurse Practitioner Family
DX: I25.10 Atherosclerotic heart disease of native coronary artery without angina pectoris (principal); Z95.5 Presence of coronary angioplasty implant and graft; I65.22 Occlusion and stenosis of left carotid artery; I10 Essential (primary) hypertension; E78.5 Hyperlipidemia, unspecified
CPT/HCPCS: 99214

== ENCOUNTER → 2023-07-07 13:00 | Outpatient (BNVA) | payer MEDICARE, SELFPAY | PROVIDERS: PCP Internal Medicine; Visit Provider Nurse Practitioner Family | DX: I25.10 Atherosclerotic heart disease of native coronary artery without angina pectoris (principal); I65.22 Occlusion and stenosis of left carotid artery; I10 Essential (primary) hypertension; E78.5 Hyperlipidemia, unspecified; Z95.5 Presence of coronary angioplasty implant and graft | CPT/HCPCS: 99212 ==

== ENCOUNTER 2023-12-08 13:27 | Outpatient (REF) | payer MEDICARE, SELFPAY ==
--- NOTE | ~2023-12-08 | US_ITS ---
EXAMINATION: US EXTRACRANIAL CAROTID DUPLEX, BILATERAL CLINICAL INFORMATION: Stenosis of carotid artery COMPARISON: Carotid duplex September 04, 2022 TECHNIQUE: Real-time ultrasound and Doppler techniques (integrating B-mode 2-D vascular images, Doppler spectral analysis and color-flow Doppler imaging) were utilized to interrogate the extracranial carotid arteries, the vertebral arteries and proximal subclavian arteries bilaterally. The degree of stenosis is determined by criteria similar to NASCET. FINDINGS: Right Side: 1. There is mild atherosclerotic plaque seen in the bifurcation/proximal ICA region. 2. The common carotid artery PSV proximally is 91.6 cm/s and distally 61 cm/s. 3. The proximal internal carotid artery velocities are 62.7 cm/s systolic and 12.2 cm/s diastolic. 4. The proximal external carotid artery PSV is 136 cm/s. 5. The vertebral artery shows antegrade flow. 6. The subclavian artery waveforms are normal. Left Side: 1. There is mild atherosclerotic plaque seen in the bifurcation/proximal ICA region. 2. The common carotid artery PSV proximally is 98.2 cm/s and distally 60.4 cm/s. 3. The proximal internal carotid artery velocities are 257 cm/s systolic and 64.3 cm/s diastolic. 4. The proximal external carotid artery PSV is 254 cm/s. 5. The vertebral artery shows antegrade flow. 6. The subclavian artery waveforms are normal. US/US carotid duplex BI IMPRESSION: 1. RIGHT: Minimal, non-hemodynamically significant stenosis of the proximal right internal carotid artery corresponding to a 0-49% stenosis by velocity criteria. 2. LEFT: Moderate, hemodynamically significant stenosis of the proximal left internal carotid artery corresponding to a 50-79% stenosis by velocity criteria. 4. Elevated velocities in the left external carotid artery suggesting stenosis. 3. There is no change in the category severity of disease of the internal carotid arteries when compared to the previous study dated September 04, 2022.
== END 2023-12-08 13:28 | disposition home or self-care (01) ==
LOC: HO.US 13:27
PROVIDERS: Visit Provider Nurse Practitioner Family
DX: I65.23 Occlusion and stenosis of bilateral carotid arteries (principal); E78.5 Hyperlipidemia, unspecified; I10 Essential (primary) hypertension
CPT/HCPCS: 93880

== ENCOUNTER 2023-12-15 14:07 | Outpatient (AMB) | payer MEDICARE, SELFPAY ==
[2023-12-15 14:10] VITALS: BP 110/54; PULSE 92; BMI 32.0
--- NOTE | 2023-12-15 14:10 | A.OFFVIS_ITS ---
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 Accompanied by: Spouse Allergies liraglutide [From VICTOZA] Allergy (Unknown, Verified 07/07/23 13:05) UNKNOWN Medication List - Last Reconciled 12/15/23 by Hardik Aranda MD aspirin (Adult Low Dose Aspirin) 81 mg PO DAILY buspirone 7.5 mg PO BID clonazepam 0.5 mg PO BID PRN clotrimazole 1% 1 appl topical BID 2 weeks dextroamphetamine-amphetamine 20 mg ER 40 mg PO DAILY gabapentin 300 mg PO glucagon (Gvoke HypoPen 2-Pack) mg subcut insulin glargine (Lantus Solostar U-100 Insulin) 15 units subcut BEDTIME insulin lispro (Humalog U-100 Insulin) See Protocol UP TO 15 UNITS TID WITH MEALS lisinopril 2.5 mg PO DAILY metformin 1,000 mg PO BID metoclopramide HCl (Reglan) 10 mg PO QIDACHS metoprolol succinate ER 50 mg PO DAILY omeprazole 20 mg PO BID ondansetron HCl 4 mg PO Q8H rosuvastatin 40 mg PO DAILY HPI Comments Details: Jamal returns for follow-up regarding coronary artery disease. To recall, history of diabetes for more than 2 decades. In 2021, he presented with abdominal symptoms but no clear chest pain. However, had elevated troponins suggestive of NSTEMI. Echocardiogram also showed wall motion abnormalities. Then sent to [facility] for cardiac catheterization and underwent circumflex stenting. Then another hospitalization for possible pericarditis for which he got NSAIDs. Overall, he is doing fine. No specific cardiac symptoms whatsoever. [facility] Medical History (Updated 07/07/23 @ 17:22 by MARSHA Harding) Essential hypertension Left carotid artery stenosis Atherosclerotic cardiovascular disease Pericarditis Chest pain Type 2 diabetes mellitus with unspecified complications Neuropathy Acute non-ST elevation myocardial infarction (NSTEMI) Gastroparesis Surgical History Stented coronary artery H/O eye surgery Family History Mother CAD (coronary artery disease) Brother CAD (coronary artery disease) Social History Alcohol intake: current Alcohol intake frequency: holidays/special occasions only Patient Tobacco Use Status: Never used Tobacco Advance Directives Date on File: 11/30/21 service: No Current occupational status: employed Review of Systems Const Denies chills, Denies fatigue, Denies fever(s), Denies weight gain and Denies weight loss ENT Denies dizziness Card Denies chest pain, Denies leg edema, Denies lightheadedness, Denies palpitations, Denies dyspnea on exertion, Denies orthopnea and Denies other Resp Denies cough and Denies dyspnea on exertion GI Denies hematochezia and Denies change in stool character Musc Denies abnormal gait, Denies muscle weakness, Denies numbness, Denies radiating pain into limb and Denies tingling Neuro Denies abnormal gait, Denies dizziness, Denies numbness and Denies tingling Endo Denies fatigue and Denies palpitations Physical Exam Vital Signs: Last Vital Signs Pulse 92 12/15/23 14:10 BP 110/54 L 12/15/23 14:10 BMI result Body Mass Index 32.0 Const General: comfortable and no acute distress Orientation/consciousness: patient oriented x3 HEENT Other: Unremarkable Head: Yes normal to inspection Neck Neck: Yes normal visual inspection Chest Chest palpation & inspection: normal inspection of the chest Resp Auscultation: clear to auscultation bilaterally Cardio Palpation: normal PMI Heart sounds: S1 normal heart sound present, S2 normal heart sound present, no gallops, no murmurs and no rubs GI Palpation (GI): Soft to palpation Back/Spine/Pelvis Other: unremarkable Skin General skin exam: no rashes or lesions noted Neuro General: patient oriented x3 Extrem General: Yes normal to inspection Psych Mental Status: mental status grossly normal Assessment & Plan Assessment & Plan (1) Atherosclerotic cardiovascular disease: Code(s): I25.10 - Atherosclerotic heart disease of [place] coronary artery without angina pectoris Category: Medical Plan: Cardiac catheterization data reviewed from 11/2021. Distal circumflex had 90% stenosis, status post stenting. Mid LAD with 40% stenosis. No significant disease elsewhere. Continue aspirin. Continue statins. Last LDL 28 mg/dL. Triglycerides 181 mg/dL. LFTs are okay. He states that he has had more recent labs and he can send that to us. (2) Left carotid artery stenosis: Code(s): I65.22 - Occlusion and stenosis of left carotid artery Category: Medical Plan: In the last carotid ultrasound from 2022, left-sided stenosis, 50-79%. Right- sided 0-49%. In the study from last week, no significant change. Aggressive risk factor modification only. (3) Type 2 diabetes mellitus with unspecified complications: Code(s): E11.8 - Type 2 diabetes mellitus with unspecified complications Category: Medical Plan: On insulin, metformin. He will send the most recent last. (4) Essential hypertension: Code(s): I10 - Essential (primary) hypertension Category: Medical Plan: Stable. (5) Other and unspecified hyperlipidemia: Code(s): E78.5 - Hyperlipidemia, unspecified Category: Medical Plan: Continue statins. Coding Level of Care Code Est Pt Level 4 (52532) Diagnoses Atherosclerotic cardiovascular disease I25.10 Left carotid artery stenosis I65.22 Type 2 diabetes mellitus with unspecified complications E11.8 Essential hypertension I10 Other and unspecified hyperlipidemia E78.5
== END 2023-12-15 14:33 | disposition home or self-care (01) ==
PROVIDERS: PCP Internal Medicine; Visit Provider Internal Medicine
DX: I25.10 Atherosclerotic heart disease of native coronary artery without angina pectoris (principal); I65.22 Occlusion and stenosis of left carotid artery; E11.8 Type 2 diabetes mellitus with unspecified complications; I10 Essential (primary) hypertension; E78.5 Hyperlipidemia, unspecified
CPT/HCPCS: 99214

== ENCOUNTER → 2023-12-15 14:07 | Outpatient (BNVA) | payer MEDICARE, SELFPAY | PROVIDERS: PCP Internal Medicine; Visit Provider Internal Medicine | DX: I65.22 Occlusion and stenosis of left carotid artery (principal); I25.10 Atherosclerotic heart disease of native coronary artery without angina pectoris; I10 Essential (primary) hypertension; I21.4 Non-ST elevation (NSTEMI) myocardial infarction; E11.9 Type 2 diabetes mellitus without complications; E78.5 Hyperlipidemia, unspecified; Z95.5 Presence of coronary angioplasty implant and graft | CPT/HCPCS: 99212 ==

== ENCOUNTER 2024-04-04 12:20 | Emergency (ER) | payer MEDICARE, SELFPAY ==
[2024-04-04] VITALS (10 sets, daily range): BP systolic 160–212; BP diastolic 82–102; PULSE 12–111; RESP 12–20; TEMP 36.9–37.1; O2SAT 95–99; BMI 31.7
--- NOTE | 2024-04-04 13:02 | ED_ITS ---
HPI - Nausea/Vomiting/Diarrhea General Chief complaint: Nausea/Vomiting/Diarrhea Stated complaint: N/V/D X6DAYS HX GASTROPARESIS PER EMS Time Seen by Provider: 04/04/24 12:53 Source: patient and EMS Mode of arrival: EMS Limitations: no limitations History of Present Illness ED Provider: Saúl Jordan PA-C HPI Narrative: 69 yo male with history of DM2, HTN, hx pericarditis, left carotid artery stenosis, hx CAD s/p stent who presents to the ER for evaluation of 6 days of N/V/D and central abdominal pain. He reports the pain in his abdomen in 4/10, constant, pressure like and located in his periumbilical area. His diarrhea occurs every time he eats, nonbloody. 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 He has been unable to tolerate much for PO except for ice chips in the last several days. No chest pain, fever, chills, body aches. He endorses shortness of breath. He reports history of gastroparesis. His diabetes has been under better control since a recent increase in his insulin regimen. MD elicited complaint: nausea, vomiting and diarrhea Pertinent past history: other (gastroparesis) Onset (ago): day(s) (6) Description of diarrhea: semi-solid and loose Associated nausea: Yes Associated abdominal pain: Yes Location of pain: periumbilical Pain consistency: constant Severity: moderate Pain scale (0-10): 4 Quality: other (pressure) Exacerbating factors: eating Relieving factors: none Associated symptoms: nausea/vomiting and shortness of breath Related Data Home Medications ?Medication ?Instructions ?Recorded ?Confirmed clonazepam 0.5 mg tablet 0.5 mg PO BID PRN Anxiety 07/04/21 12/15/23 omeprazole 20 mg tablet,delayed 20 mg PO BID 11/26/21 12/15/23 release dextroamphetamine-amphetamine ER 40 mg PO DAILY 11/29/21 12/15/23 20 mg 24hr capsule,extend release insulin glargine 100 unit/mL (3 15 unit subcut BEDTIME 11/29/21 12/15/23 mL) subcutaneous pen (Lantus Solostar U-100 Insulin) insulin lispro 100 unit/mL See Rx Instructions .Route .COMPLEX 11/29/21 12/15/23 subcutaneous solution (Humalog U-100 Insulin) metformin 1,000 mg tablet 1,000 mg PO BID 11/26/22 12/15/23 gabapentin 300 mg capsule 300 mg PO 06/30/23 12/15/23 glucagon 1 mg/0.2 mL subcutaneous mg subcut 06/30/23 12/15/23 auto-injector (Gvoke HypoPen 2-Pack) lisinopril 2.5 mg tablet 2.5 mg PO DAILY 06/30/23 12/15/23 metoclopramide HCl 10 mg tablet 10 mg PO QIDACHS 06/30/23 12/15/23 (Reglan) ondansetron HCl 4 mg tablet 4 mg PO Q8H 06/30/23 12/15/23 aspirin 81 mg tablet,delayed 81 mg PO DAILY 12/15/23 12/15/23 release (Adult Low Dose Aspirin) buspirone 5 mg tablet 7.5 mg PO BID 12/15/23 12/15/23 Previous Rx's ?Medication ?Instructions ?Recorded metoprolol succinate 50 mg 50 mg PO DAILY #90 tabs 12/31/21 tablet,extended release 24 hr clotrimazole 1 % topical cream 1 appl topical BID 2 weeks #15 12/28/22 grams rosuvastatin 40 mg tablet 40 mg PO DAILY #90 tabs 02/17/23 metoclopramide HCl 10 mg tablet 10 mg PO Q8H PRN nausea and 04/04/24 (Reglan) vomiting #14 tabs Allergies Allergy/AdvReac Type Severity Reaction Status Date / Time liraglutide [From VICTOZA] Allergy Unknown UNKNOWN Verified 04/04/24 12:34 Review of Systems 2 Review of Systems: Yes all other systems are reviewed and are negative Gastrointestinal: Gastrointestinal: Reports nausea PMFSH Past Medical History Medical History (Updated 04/04/24 @ 15:26 by SHAYLA Alfaro) Essential hypertension Left carotid artery stenosis Atherosclerotic cardiovascular disease Pericarditis Chest pain Type 2 diabetes mellitus with unspecified complications Neuropathy Acute non-ST elevation myocardial infarction (NSTEMI) Gastroparesis Surgical History Stented coronary artery H/O eye surgery Family History Family History Mother CAD (coronary artery disease) Brother CAD (coronary artery disease) Social History Social History Alcohol intake: current Alcohol intake frequency: holidays/special occasions only Patient Tobacco Use Status: Never used Tobacco Smoked in Last 30 Days: No Use of substances other than those prescribed or required for medical reasons: No Advance Directives: Yes Advance Directives on File: Yes Advance Directives Date on File: 11/30/21 service: No Current occupational status: employed Physical Exam 2 Vital Signs: Vital Signs: Last Vital Signs Temp 98.4 F 04/04/24 13:00 Pulse 97 04/04/24 17:42 Resp 15 04/04/24 17:42 BP 160/82 H 04/04/24 17:42 Pulse Ox 98 04/04/24 17:42 O2 Del Method Room Air 04/04/24 17:42 BMI result Body Mass Index 31.7 Appearance: Alert. Oriented X3. No acute distress. Head: normocephalic, atraumatic. Eyes: Pupils equal, round and reactive to light. ENT: Pharynx normal. No tonsillar swelling or exudate. Neck: Normal inspection. Neck supple. CVS: Normal heart rate and rhythm. Pulses normal. Respiratory: No respiratory distress. Breath sounds normal. Abdomen: Soft, nontender, milddly distended in the lower abdomen, no RUQ tenderness. normal active+BS x4 Skin: Skin warm and dry. Normal skin color. Normal skin turgor. No rashes. Extremities: No lower extremity edema. No joint swelling. Neuro/psych: Oriented X 3. No motor deficit. No sensory deficit. CN II-XII intact. Normal speech and cognition. Course Reevaluation(s) Reevaluation #1: Patient was given to me via sign-out pending p.o. challenge, and reassessment. Patient tolerating p.o.. He is feeling well, has no current complaints. Blood pressure was elevated, however he was laying on his blood pressure cuff. Repeat blood pressure 160/82. I advised patient to follow-up with his primary care physician in regards to elevated blood pressure readings, and educated on the importance of recording blood pressure readings multiple times per day. He understands and agrees with plan. Given he is tolerating p.o. without difficulty, he is feeling well and is asymptomatic, patient stable for discharge. Time: 17:48 Medications Administered Discontinued Medications Generic Name Dose Route Start Last Admin Trade Name Gianfranco PRN Reason Stop Dose Admin Sodium Chloride 1,000 mls @ 999 mls/hr 04/04/24 15:00 04/04/24 17:02 Ns IV 04/04/24 16:00 Infused .Q1H1M ALEX Infusion Labetalol HCl 10 mg 04/04/24 13:20 04/04/24 14:09 Labetalol Hcl 100 Mg/20 Ml Vial IVPUSH 04/04/24 13:21 10 mg ONCE ONE Administration Lisinopril 5 mg 04/04/24 14:52 04/04/24 15:56 Lisinopril 5 Mg Tablet PO 04/04/24 14:53 5 mg ONCE ONE Administration Protocol Metoclopramide HCl 10 mg 04/04/24 13:20 04/04/24 14:11 Metoclopramide Hcl 10 Mg/2 Ml Vial IVPUSH 04/04/24 13:21 10 mg ONCE ONE Administration Metoprolol Succinate 50 mg 04/04/24 14:52 04/04/24 15:56 Metoprolol Succinate Er 50 Mg Tab.Er.24h PO 04/04/24 14:53 50 mg ONCE ONE Administration Protocol Medical Decision Making Medical Decision Making [facility] Narrative: 69-year-old male with history of hypertension, diabetes on insulin pump, history of gastroparesis, carotid artery stenosis, CAD status post stent who is coming to the ER for evaluation of nausea, vomiting, diarrhea and abdominal pain/ soreness for the last several days. No improvement with Zofran at home. Abdominal pain is in the periumbilical region, described as a soreness that he thinks is from vomiting. He arrives to the ER extremely hypertensive with systolic blood pressure of 200. He was reporting headache but no chest pain. He did not take his antihypertensives including lisinopril and metoprolol this morning. He was to nauseous. BP improved to the 170s after IV labetalol. PO lisinopril and metoprolol ordered. he is feeling better. given PO trial and tolerated well Differential Diagnosis Differential Diagnoses: The differential diagnosis associated with the presentation includes gastroparesis, MA, gastroenteritis, Cdiff colitis, pancreatitis, bowel obstruction, colitis, cholecystitis HTN urgency, HTN emergency, malignant HTN Admission/Observation Consideration of admission/observation: Escalation of care including admission/observation considered Lab Data MDM Lab Attestation statement: I reviewed the patient's lab results. Mildly elevated LFTs which he has had in the past, normal alk-phos, low suspicion for biliary process 04/04/24 14:17 04/04/24 14:17 Labs: Lab Results 04/04/24 Range/Units 14:17 WBC 7.5 (4.8-10.8) X10*3/uL RBC 6.37 H (4.60-5.80) X10*6/uL Hgb 17.9 (14.0-18.0) g/dl Hct 51.3 (42.0-52.0) % MCV 80.5 (80.0-98.0) fL MCH 28.1 (27.0-33.0) pg MCHC 34.9 (31.0-36.0) g/dl RDW 12.8 (11.0-16.0) % Plt Count 204 (160-400) X10*3/uL MPV 8.7 L (9.4-12.4) fL Immature Gran % (Auto) 0.1 (0.0-0.4) % Neut % (Auto) 76.7 H (45-73) % Lymph % (Auto) 14.6 L (20-40) % [place] % (Auto) 8.1 (2-11) % Eos % (Auto) 0.1 (0-4) % Baso % (Auto) 0.4 (0-2) % Lymph # (Auto) 1.1 L (1.2-4.9) X10*3/uL [place] # (Auto) 0.6 (0.1-1.2) X10*3/uL Eos # (Auto) 0.0 (0.0-0.4) X10*3/uL Baso # (Auto) 0.0 (0.0-0.2) X10*3/uL Abs Immat Gran (auto) 0.01 (0.00-0.03) X10*3/uL Absolute Neuts (auto) 5.8 (2.0-8.3) x10*3/uL Absolute Nucleated RBC 0.000 (0.0-0.012) X10*3/uL Nucleated RBC % (auto) 0.0 (0.0-0.2) /100WBC Sodium 133 L (135-145) mmol/L Potassium 3.3 (3.3-5.1) mmol/L Chloride 102 (96-108) mmol/L Carbon Dioxide 19 L (22-29) mmol/L Anion Gap 15 (12-20) BUN 20 H (9-16) mg/dL Creatinine 1.27 (0.5-1.4) mg/dL Estim Creat Clear Calc 60.1 Estimated GFR 56 Random Glucose 174 H (60-115) mg/dL Calcium 9.4 (8.4-10.2) mg/dL Magnesium 2.2 (1.6-2.6) mg/dL Total Bilirubin 1.6 H (0.0-1.0) mg/dL Direct Bilirubin 0.6 H (0.0-0.5) mg/dL AST 47 H (5-37) U/L ALT 45 H (0-40) U/L Alkaline Phosphatase 93 (39-117) U/L Troponin I High Sens 18.3 D (<3.5-35.0) ng/L Total Protein 7.4 (6.5-8.0) g/dL Albumin 4.2 (3.5-5.0) g/dL Lipase 24 (8-78) U/L Influenza Type A (PCR) NEGATIVE (Negative) Influenza Type B (PCR) NEGATIVE (Negative) RSV RNA Qual (PCR) NEGATIVE (Negative) SARS-CoV-2 RNA (RT-PCR) NEGATIVE (Negative) Independent Interpretation I performed an independent interpretation of an: EKG Interpretation: sinus tachycardia, HR 102 bpm, no significant change from prior, no ST segment elevations or depressions Independent Historian Clinical information obtained from an independent historian. History obtained from or confirmed by: EMS External Record Review External record reviewed: Prior outpatient labs and Prior outpatient radiology Tests considered The following testing was considered but not selected: CT abd/pelvis considered, nontender abd. pain seems muscular. negative murphys sign Prescription Management I considered prescription management with: Other (antiemetics and antihypertensives) Chronic Conditions Patient?s care impacted by: Diabetes Critical Care Time Critical Care Time Critical Care Time: Yes Total Critical Care Time: 33 Attestation: I have personally provided critical care time exclusive of time spent on separately billable procedures. Time includes review of lab data, radiology results, discussion with consultants, and monitoring for potential decompensation. Intervention performed as documented. Discharge Plan Discharge Clinical Impression: Gastroenteritis Patient Disposition: Still a Patient Instructions: Gastroenteritis (DC) Additional Instructions: your lab workup was reassuring your EKG did not show any concerning signs of a heart attack your vital signs improved with fluids and BP medications You most likely have a viral GI bug also known as gastroenteritis. Treatment is supportive care, symptoms usually resolve on their own in 48-72 hours. Recommend rest and plenty of oral hydration. Stick to a bland diet like soup and toast while you are not feeling well. Take the prescribed medication as needed for nausea. Recommend over the counter Pepto Bismol or Imodium for upset stomach and diarrhea. Follow up with your doctor as needed. If you develop new or worsening symptoms call 911 or come back to the ER for further evaluation. Prescriptions: New metoclopramide HCl [Reglan] 10 mg tablet 10 mg PO Q8H PRN (Reason: nausea and vomiting) Qty: 14 0RF No Action rosuvastatin 40 mg tablet 40 mg PO DAILY Qty: 90 3RF clonazepam 0.5 mg tablet 0.5 mg PO BID PRN (Reason: Anxiety) buspirone 5 mg tablet 7.5 mg PO BID omeprazole 20 mg Tablet,Delayed Release (Dr/Ec) 20 mg PO BID dextroamphetamine-amphetamine 20 mg capsule,extended release 24hr 40 mg PO DAILY insulin glargine [Lantus Solostar U-100 Insulin] 100 unit/mL (3 mL) insulin pen 15 unit subcut BEDTIME insulin lispro [Humalog U-100 Insulin] 100 unit/mL solution See Rx Instructions .ROUTE .COMPLEX Protocol: Insulin Correction Scale Less than or equal to 110 ---- Give (units): 0 111 to 150 Give (units): 0 151 to 200 Give (units): 4 201 to 250 Give (units): 6 251 to 300 Give (units): 8 301 to 350 Give (units): 10 Greater than 350 Give (units): 12 Call MD if Blood Glucose > : 350 Rx Instructions: UP TO 15 UNITS TID WITH MEALS metoprolol succinate 50 mg tablet extended release 24 hr 50 mg PO DAILY Qty: 90 3RF clotrimazole 1 % cream 1 appl topical BID 14 Days Qty: 15 0RF Gvoke HypoPen 2-Pack 1 mg/0.2 mL auto-injector subcut lisinopril 2.5 mg tablet 2.5 mg PO DAILY gabapentin 300 mg capsule 300 mg PO ondansetron HCl 4 mg tablet 4 mg PO Q8H metoclopramide HCl [Reglan] 10 mg tablet 10 mg PO QIDACHS metformin 1,000 mg tablet 1,000 mg PO BID aspirin [Adult Low Dose Aspirin] 81 mg tablet,delayed release (DR/EC) 81 mg PO DAILY Print Language: Gabonese
--- NOTE | 2024-04-04 13:09 | ECG_ITS ---
Test Reason : sob Blood Pressure : / mmHG Vent. Rate : 102 BPM Atrial Rate : 102 BPM P-R Int : 192 ms QRS Dur : 082 ms QT Int : 382 ms P-R-T Axes : 056 007 077 degrees QTc Int : 497 ms Sinus tachycardia Septal infarct (cited on or before 30-JUN-2023) Inferior infarct (cited on or before 29-NOV-2021) Abnormal ECG When compared with ECG of 04-JUL-2023 12:01, No significant change was found Referred By: Lashae Jordan Electronically Signed By:Sid Hoyos
[2024-04-04] MEDS: Labetalol HCL 100 MG/20 ML VIAL 10 MG IVPUSH (14:09)
[2024-04-04] MEDS: Metoclopramide HCl 10 MG/2 ML VIAL IVPUSH (14:11)
[2024-04-04 14:22] LABS: MANUAL DIFF FLAG NO
[2024-04-04 14:24] LABS: Basophils Percent Auto 0.4 % (0-2); Eosinophils Percent Auto 0.1 % (0-4); Hematocrit 51.3 % (42.0-52.0); Hemoglobin 17.9 g/dl (14.0-18.0); Imm Gran Abs Auto 0.01 X10*3/uL (0.00-0.03); Imm Gran Pct Auto 0.1 % (0.0-0.4); Lymphocytes Absolute Auto 1.1 X10*3/uL (1.2-4.9); Lymphocytes Percent Auto 14.6 % (20-40); Mean Corpuscular HGB Conc 34.9 g/dl (31.0-36.0); Mean Corpuscular Hemoglobin 28.1 pg (27.0-33.0); Mean Corpuscular Volume 80.5 fL (80.0-98.0); Mean Platelet Volume 8.7 fL (9.4-12.4); Monocytes Absolute Auto 0.6 X10*3/uL (0.1-1.2); Monocytes Percent Auto 8.1 % (2-11); Neutrophils Absolute Auto 5.8 x10*3/uL (2.0-8.3); Neutrophils Percent Auto 76.7 % (45-73); Platelet Count 204 X10*3/uL (160-400); Red Blood Count 6.37 X10*6/uL (4.60-5.80); Red Cell Distribution Width 12.8 % (11.0-16.0); White Blood Count 7.5 X10*3/uL (4.8-10.8)
[2024-04-04 14:37] LABS: Alanine Aminotransferase 45 U/L (0-40); Albumin Level 4.2 g/dL (3.5-5.0); Alkaline Phosphatase 93 U/L (39-117); Anion Gap 15 (12-20); Aspartate Amino Transferase 47 U/L (5-37); Bilirubin Direct 0.6 mg/dL (0.0-0.5); Bilirubin Total 1.6 mg/dL (0.0-1.0); Blood Urea Nitrogen 20 mg/dL (9-16); Calcium 9.4 mg/dL (8.4-10.2); Carbon Dioxide 19 mmol/L (22-29); Chloride 102 mmol/L (96-108); Creatinine Clr Calc Pharmacy 60.1; Estimated Glomerular Filt Rate 56; Glucose Random 174 mg/dL (60-115); Lipase 24 U/L (8-78); Magnesium 2.2 mg/dL (1.6-2.6); Potassium 3.3 mmol/L (3.3-5.1); Sodium 133 mmol/L (135-145); Total Protein 7.4 g/dL (6.5-8.0)
[2024-04-04 14:44] LABS: Troponin-I High Sensitivity 18.3 ng/L (<3.5-35.0)
[2024-04-04 15:07] LABS: Influenza A PCR NEGATIVE (Negative); Influenza B PCR NEGATIVE (Negative); Resp Syncy Virus RNA Qual PCR NEGATIVE (Negative); SARS COV2 PCR INHOUSE NEGATIVE (Negative)
[2024-04-04] MEDS: 0.9 % Sodium Chloride 1,000 ML 999 ML IV (15:55)
[2024-04-04] MEDS: Metoprolol Succinate ER 50 MG TAB.ER.24H PO (15:56)
[2024-04-04] MEDS: lisinopriL 5 MG TABLET PO (15:56)
== END 2024-04-04 18:41 | disposition still patient (30) ==
PROVIDERS: Physician Assistant; Emergency Provider Emergency Medicine
DX: K52.9 Noninfective gastroenteritis and colitis, unspecified (principal); R11.2 Nausea with vomiting, unspecified; R00.0 Tachycardia, unspecified; I25.10 Atherosclerotic heart disease of native coronary artery without angina pectoris; R94.31 Abnormal electrocardiogram [ECG] [EKG]; Z03.818 Encounter for observation for suspected exposure to other biological agents ruled out; Z79.899 Other long term (current) drug therapy
CPT/HCPCS: 0241U; 36415; 80048; 80076; 83690; 83735; 84484; 85025; 93005; 96360; 96374; 96375; 99285; J1920; J2765

== ENCOUNTER → 2024-04-04 13:09 | Outpatient (BNV) | payer MEDICARE, SELFPAY | PROVIDERS: Emergency Provider Emergency Medicine; Visit Provider Internal Medicine Cardiovascular Disease | DX: R06.02 Shortness of breath (principal) | CPT/HCPCS: 93010 ==

== ENCOUNTER → 2024-06-14 14:44 | Outpatient (BNVA) | payer MEDICARE, SELFPAY | PROVIDERS: PCP Internal Medicine; Visit Provider Internal Medicine | DX: I25.10 Atherosclerotic heart disease of native coronary artery without angina pectoris (principal); I65.22 Occlusion and stenosis of left carotid artery; I10 Essential (primary) hypertension; E11.8 Type 2 diabetes mellitus with unspecified complications; E78.5 Hyperlipidemia, unspecified | CPT/HCPCS: 99212 ==

== ENCOUNTER → 2024-06-14 15:16 | Outpatient (AMB) | payer MEDICARE, SELFPAY ==
--- NOTE | 2024-06-14 14:46 | MHC.OFFVIS ---
Vital Signs 06/14/24 14:50 Height 5 ft 7 in Weight 198 lb 6.656 oz BMI 31.1 BP 122/68 Blood Pressure Location Lt brachial Position Sitting Pulse 88 Pulse Source Pulse Oximeter Intake Visit Reasons: 6 mth fup Allergies liraglutide [From VICTOZA] Allergy (Unknown, Verified 04/04/24 12:34) UNKNOWN Medication List - Last Reconciled 06/14/24 by Hardik Aranda MD aspirin (Adult Low Dose Aspirin) 81 mg PO DAILY buspirone 7.5 mg PO ONCE clonazepam 0.5 mg PO ONCE clotrimazole 1% 1 appl topical BID 2 weeks dextroamphetamine-amphetamine 20 mg ER 40 mg PO DAILY gabapentin 300 mg PO BID glucagon (Gvoke HypoPen 2-Pack) mg subcut insulin glargine (Lantus Solostar U-100 Insulin) 15 units subcut BEDTIME insulin lispro (Humalog U-100 Insulin) See Protocol UP TO 15 UNITS TID WITH MEALS lisinopril 5 mg PO DAILY metformin 1,000 mg PO BID metoclopramide HCl (Reglan) 10 mg PO Q8H PRN metoprolol succinate ER 50 mg PO DAILY omeprazole 20 mg PO BID ondansetron HCl 4 mg PO Q8H PRN rosuvastatin 40 mg PO DAILY HPI Comments Details: Jamal returns for follow-up regarding coronary artery disease. To recall, history of diabetes for more than 2 decades. In 2021, he presented with abdominal symptoms but no clear chest pain. However, had elevated troponins suggestive of NSTEMI. Echocardiogram also showed wall motion abnormalities. Then had cardiac catheterization/circumflex stenting. Then another hospitalization for possible pericarditis for which he got NSAIDs. Since last seen, he does not have any new concerns. No cardiac symptoms or in fact anything along those lines. [facility] Medical History (Updated 04/05/24 @ 00:01 by Alta Perales) Essential hypertension Left carotid artery stenosis Atherosclerotic cardiovascular disease Pericarditis Chest pain Type 2 diabetes mellitus with unspecified complications Neuropathy Acute non-ST elevation myocardial infarction (NSTEMI) Gastroparesis Surgical History Stented coronary artery H/O eye surgery Family History Mother CAD (coronary artery disease) Brother CAD (coronary artery disease) Social History Alcohol intake: current Alcohol intake frequency: holidays/special occasions only Patient Tobacco Use Status: Never used Tobacco Advance Directives Date on File: 11/30/21 service: No Current occupational status: employed Review of Systems Const Denies weakness ENT Denies dizziness Card Denies chest pain, Denies chest pain with activity, Denies syncope, Denies rapid heart rate, Denies pedal edema, Denies edema, Denies leg edema, Denies lightheadedness, Denies palpitations, Denies dyspnea, Denies dyspnea on exertion and Denies orthopnea Resp Denies cough, Denies dyspnea and Denies dyspnea on exertion GI Denies hematochezia and Denies change in stool character Musc Denies abnormal gait, Denies muscle cramps, Denies muscle weakness, Denies numbness, Denies radiating pain into limb and Denies tingling Neuro Denies abnormal gait, Denies dizziness, Denies syncope, Denies numbness, Denies tingling and Denies weakness Endo Denies palpitations Physical Exam Vital Signs: Last Vital Signs Pulse 88 06/14/24 14:50 BP 122/68 06/14/24 14:50 BMI result Body Mass Index 31.1 Const General: comfortable and no acute distress Orientation/consciousness: patient oriented x3 HEENT Other: Unremarkable Head: Yes normal to inspection Neck Neck: Yes normal visual inspection Chest Chest palpation & inspection: normal inspection of the chest Resp Auscultation: clear to auscultation bilaterally Cardio Palpation: normal PMI Heart sounds: S1 normal heart sound present, S2 normal heart sound present, no gallops, no murmurs and no rubs GI Palpation (GI): Soft to palpation Back/Spine/Pelvis Other: unremarkable Skin General skin exam: no rashes or lesions noted Neuro General: patient oriented x3 Extrem General: Yes normal to inspection Psych Mental Status: mental status grossly normal Assessment & Plan Assessment & Plan (1) Atherosclerotic cardiovascular disease: Code(s): I25.10 - Atherosclerotic heart disease of [place] coronary artery without angina pectoris Category: Medical Plan: Cardiac catheterization data reviewed from 11/2021. Distal circumflex had 90% stenosis, status post stenting. Mid LAD with 40% stenosis. No significant disease elsewhere. Continue aspirin. Continue statins. Last LDL 28 mg/dL. Triglycerides 181 mg/dL. LFTs are okay. Rechecked. Request given. (2) Left carotid artery stenosis: Code(s): I65.22 - Occlusion and stenosis of left carotid artery Category: Medical Plan: Carotid ultrasound from [id number] stenosis, 0-49%; left-moderate, 50-79% stenosis. We will recheck before next visit. (3) Type 2 diabetes mellitus with unspecified complications: Code(s): E11.8 - Type 2 diabetes mellitus with unspecified complications Category: Medical Plan: On insulin, metformin. Last available hemoglobin A1c from 2022 was 9%. Nothing recent available. (4) Essential hypertension: Code(s): I10 - Essential (primary) hypertension Category: Medical Plan: Stable. (5) Other and unspecified hyperlipidemia: Code(s): E78.5 - Hyperlipidemia, unspecified Category: Medical Plan: Continue statins. Check labs. Orders: Orders Liver Panel Today E78.5 - Hyperlipidemia, unspecified, I25.10 - Atherosclerotic heart disease of [place] coronary artery without angina pectoris LDL Cholesterol Direct Today E78.2 - Mixed hyperlipidemia, E78.5 - Hyperlipidemia, unspecified Lipid Panel Today E78.5 - Hyperlipidemia, unspecified US carotid duplex BI 6 Months I65.23 - Occlusion and stenosis of bilateral carotid arteries Coding Level of Care Code Est Pt Level 4 (31884) Diagnoses Atherosclerotic cardiovascular disease I25.10 Left carotid artery stenosis I65.22 Type 2 diabetes mellitus with unspecified complications E11.8 Essential hypertension I10 Other and unspecified hyperlipidemia E78.5
[2024-06-14 14:50] VITALS: BP 122/68; PULSE 88; BMI 31.1
== END | disposition home or self-care (01) ==
PROVIDERS: PCP Internal Medicine; Visit Provider Internal Medicine
DX: I25.10 Atherosclerotic heart disease of native coronary artery without angina pectoris (principal); I65.22 Occlusion and stenosis of left carotid artery; E11.8 Type 2 diabetes mellitus with unspecified complications; I10 Essential (primary) hypertension; E78.5 Hyperlipidemia, unspecified
CPT/HCPCS: 99214